=== PATIENT | female | born 1955 | race Caucasian/White ===

== ENCOUNTER 2023-04-14 09:22 | Emergency (ER) | payer MEDICARE, OTHER, SELFPAY ==
--- NOTE | 2023-04-14 09:31 | ED.GENMED ---
Addendum entered and electronically signed by Kamaljit Lowe PA-C 04/16/23 14:56:
Urine culture with greater than 100,000 colony-forming units of Enterococcus and gram-negative bacilli. Patient on cefdinir. Sensitivities pending
Original Note:
History of Present Illness
General
Chief Complaint: Change in Mental Status
Time Seen by Provider: 04/14/23 09:26
Travel History
Have you had any contact with someone who has COVID-19?: Unable to Answer
Do you have any symptoms of coronavirus? Fever > 100 degrees, chills, cough, shortness of breath, sore throat, loss of taste or smell, muscle aches, or headache?: Unable to Answer
History of Present Illness
History of Present Illness:
67-year-old female with history of dementia, schizophrenia, paranoia, and expressive aphasia presents to the emergency department from [facility] due to a reported change in mental status. Apparently while attempting to
transition the patient from bed to a chair she screamed, began to shake in pain and became unresponsive. Upon arrival of EMS patient was alert with minimal verbal expression which is apparently her baseline, responds well to painful stimuli. No
new medications reported. No fevers reported at home. No history of seizure disorder
Past History
Past History
ED Past Medical History: Other (Dementia, anxiety, depression, ambulatory dysfunction, edema)
ED Past Surgical History: Other
Social History
Tobacco: Non-smoker
Alcohol: Other
Drug: Other
Personal: Other
Living: [facility]
Employment: Other
Family History
Family History: Other
Review of Systems
Review of Systems
Allergies reviewed?: Yes
All Other Systems: ROS reviewed and negative except as documented in HPI and ROS
Phy Exam
Physical Exam
Physical Exam:
GEN: Chronically ill-appearing, no immediate distress
HEENT: Oral mucosa moist, no scleral icterus
Cardiac: Regular rate and rhythm, no murmurs
Lung: No respiratory distress, no tachypnea, lungs clear to auscultation
MSK: No gross deformity or injuries
Skin: Good color, no pallor or jaundice, no rashes
Neuro: Alert, answers questions with 'yeah', responds to painful stimuli x 4 extremities, does not follow commands
Psych: Calm, cooperative
Course
Orders/Labs/Results
Orders:
Orders
04/14/23 09:30
CT Head W/o Iv Contrast Urgent
Comment:
Reason For Exam: mental status change
Straight cath- Treatment ONCE
04/14/23 09:59
Complete Blood Count/With Diff Urgent
Comprehensive Metabolic Panel Urgent
Urinalysis Reflex To Culture Urgent
Date Specimen was Collected: 04/14/23
Time Specimen was Collected: 09:43
Urine Microscopic Reflex Cult Urgent
Urine Culture Urgent
CLEMENTE Source: U
Specimen Description:
Date Specimen was Collected: 04/14/23
Time Specimen was Collected: 09:43
04/14/23 11:17
CefTRIAXone [Rocephin] 1,000 mg IV NOW STA
04/14/23 11:30
Sterile Water [Sterile Water For Injection] 10 ml .ROUTE .[facility]
Abnormal Lab Results
04/14/23
09:59
RBC 4.08 L 10^6/uL
(4.20-5.40)
MCH 33.8 H pg
(27.0-31.0)
Carbon Dioxide 32 H mmol/L
(22-30)
AST 37 H U/L
(14-36)
ALT 42 H U/L
(0-35)
Ur Occult Blood Reflex 2+ A
(Negative)
Urine Nitrite (Reflex) Positive A
(Negative)
Leukocyte Esterase Rfl 2+ A
(Negative)
Urine RBC 3-6 A /HPF
(0-2)
Urine WBC (Reflex) 50-60 A /HPF
(0-5)
Urine Bacteria (Reflex) Many A
(Negative)
04/14/23 09:59
04/14/23 09:59
Vital Signs
Initial and Last Documented VS:
Initial Vital Signs
Pulse Ox
99
04/14/23 09:41
Last Documented Vital Signs
Temp Pulse Resp BP Pulse Ox
98 F 86 15 96/71 98
04/14/23 09:45 04/14/23 12:15 04/14/23 12:15 04/14/23 12:00 04/14/23 12:15
MDM/Problems Addressed
MDM/Problems Addressed:
Patient's mentation improved the emergency department. Do not feel this represents a seizure given that there was no postictal period. Patient clinically stable, urinalysis suspicious for UTI, will treat with single dose IV antibiotics and
discharged on a oral antibiotic to complete a 7-day course.
*Critical Care Note
Total Time (30-74mins, 75-104mins- exclusive of procedures): Not Applicable
ED Attending Note
-
Portions of this chart may have been created with voice recognition software.� Occasional wrong word or��sound alike� substitutions may have occurred due to the inherent limitations of voice recognition software.
Discharge Plan
Departure
Patient Disposition: Longterm/SNF
Date of Disposition: 04/14/23
Time of Disposition: 11:18
Patient with high blood pressure during this ER visit?: No
Discharge Problem:
Urinary tract infection, Acute metabolic encephalopathy
Instructions: Altered Mental Status (DC)
Prescriptions:
New
cefdinir 300 mg capsule
300 mg PO Q12H 6 Days Qty: 12 0RF
No Action
cyanocobalamin (vitamin B-12) [Vitamin B-12] 500 MCG tablet
500 mcg feeding tube DAILY
melatonin 5 MG tablet
5 mg feeding tube HS
acetaminophen 160 mg/5 mL Liquid
960 mg feeding tube TID
Rx Instructions:
04/14/2023, 30 ml.
thiamine HCl (vitamin B1) 100 mg Tablet
100 mg feeding tube DAILY
magnesium hydroxide [Milk of Magnesia] 400 mg/5 mL Suspension
30 ml feeding tube [id number] PRN (Reason: if no BM in 3 days)
Patient Comments:
04/14/2023, [id number] at bedtime.
bisacodyl [Dulcolax (bisacodyl)] 10 mg Suppository
10 mg MI DAILY PRN (Reason: if no results for MOM)
therapeutic multivitamin Liquid
15 ml feeding tube DAILY
quetiapine [Seroquel] 25 mg Tablet
25 mg feeding tube DAILY
sennosides [senna] 8.6 mg Tablet
8.6 mg feeding tube DAILY
acetaminophen 160 mg/5 mL Liquid
592 mg feeding tube Q6HPRN PRN (Reason: mild pain)
Rx Instructions:
04/14/2023, 18.5 ml.
donepezil [Aricept] 10 mg Tablet
10 mg feeding tube HS
valproic acid (as sodium salt) 250 mg/5 mL Solution
500 mg feeding tube BID
valproic acid (as sodium salt) 250 mg/5 mL Solution
250 mg feeding tube HS
fluoxetine [Prozac] 20 mg Capsule
20 mg feeding tube DAILY
loratadine [Claritin] 10 mg Tablet
10 mg feeding tube DAILY
aripiprazole 5 mg Tablet
5 mg feeding tube DAILY
Referrals:
Huber Hale I., DO [Family Provider] -
Interventions
Interventions:
*Risk Screen - Suicide Last Done: 04/14/23 10:21
*General Assessment Last Done: 04/14/23 10:20
*Neglect/Abuse Screening Last Done: 04/14/23 10:21
ED- Fall Risk Assessment Last Done: 04/14/23 10:21
*ED COVID-19 Vaccine History Last Done: 04/14/23 10:20
*Nursing Disposition Last Done: 04/14/23 12:30
ED- Pulmonary Assessment Last Done: 04/14/23 10:26
ED- Neurological Assessment Last Done: 04/14/23 10:26
ED- Cardiac Assessment Last Done: 04/14/23 10:26
Discharge Date and Time
Discharge Date/Time: 04/14/23 12:30
[2023-04-14 09:42] VITALS: BP 112/63
[2023-04-14 10:00] VITALS: BP 105/72
[2023-04-14 10:08] LABS: % Basophils 0.5 % (0-2); % Eosinophils 0.5 % (0-6); % Immature Granulocytes 0.4 % (0-0.5); % Lymphocytes 31.1 % (20.5-51.1); % Monocytes 5.7 % (1.7-9.3); % Neutrophils 61.8 % (42.2-75.2); Absolute Lymphocytes 2.5 10^3/uL (1.2-3.4); Absolute Monocytes 0.5 10^3/uL (0.1-0.6); Absolute Neutrophils 4.9 10^3/uL (1.4-6.5); Hemoglobin 13.8 g/dL (12.0-16.0); Mean Corp Hgb Conc. 34.5 g/dL (33.0-37.0); Mean Corpuscular Hgb 33.8 pg (27.0-31.0); Mean Platelet Volume 9.5 fL (7.4-10.4); Nucleated Red Blood Cells % 0 %; Platelet Count 281 10^3/uL (130-400); Red Blood Cell Count 4.08 10^6/uL (4.20-5.40); Red Cell Dist. Width 12.7 % (11.5-14.5); White Blood Cell Count 7.9 10^3/uL (4.8-10.8)
[2023-04-14 10:17] LABS: ALT (SGPT) 42 U/L (0-35); AST (SGOT) 37 U/L (14-36); Albumin 3.8 g/dl (3.5-5.0); Alkaline Phosphatase 107 U/L (38-126); Blood Urea Nitrogen 12 mg/dl (7-17); Calcium 9.9 mg/dl (8.4-10.2); Carbon Dioxide 32 mmol/L (22-30); Chloride 99 mmol/L (98-107); Glucose 82 mg/dl (70-99); Potassium 5.1 mmol/L (3.5-5.1); Sodium 138 mmol/L (135-145); Total Bilirubin 0.5 mg/dl (0.2-1.3); Total Protein 6.3 g/dl (6.3-8.2); eGFR > 60.00
[2023-04-14 10:18] LABS: Urine Albumin Trace (Neg - Trace); Urine Bilirubin Negative (Negative); Urine Character Very Cloudy (Clear); Urine Color Yellow; Urine Glucose Negative (Negative); Urine Ketone Negative (Negative); Urine Leukocyte 2+ (Negative); Urine Nitrite Positive (Negative); Urine Occult Blood 2+ (Negative); Urine Urobilinogen Negative (Neg - 1+); Urine pH 6.5 (5.0-9.0)
[2023-04-14 11:08] VITALS: BP 94/65
[2023-04-14 11:11] LABS: Urine Amorphous Seen; Urine Mucus Few; Urine Squamous Cell >30 /LPF (Few)
[2023-04-14 11:13] LABS: Urine Bacteria Many (Negative); Urine White Cell 50-60 /HPF (0-5)
[2023-04-14] MEDS: ROCEPHIN 1000 MG IV (11:34)
[2023-04-14 11:38] VITALS: BP 102/72
[2023-04-14 12:00] VITALS: BP 96/71
== END 2023-04-14 12:30 ==
LOC: EMR 09:22
PROVIDERS: Physician Assistant; EMERGENCY PHYSICIAN Emergency Medicine; FAMILY PHYSICIAN Internal Medicine
DX: R55 Syncope and collapse (principal); N39.0 Urinary tract infection, site not specified; B95.2 Enterococcus as the cause of diseases classified elsewhere; G93.41 Metabolic encephalopathy; F03.92 Unspecified dementia, unspecified severity, with psychotic disturbance; F03.93 Unspecified dementia, unspecified severity, with mood disturbance; F03.94 Unspecified dementia, unspecified severity, with anxiety; F20.9 Schizophrenia, unspecified; F32.A Depression, unspecified; R47.01 Aphasia
CPT/HCPCS: 99285; 96374; 51701; 70450; 80053; 81003; 81015; 85025; 87077; 87086; 87186

== ENCOUNTER 2024-02-06 21:24 | Inpatient (IN) | payer MEDICARE, OTHER, SELFPAY ==
[2024-02-06 16:00] VITALS: BP 108/73
[2024-02-06 16:05] LABS: % Basophils 0.2 % (0-2); % Eosinophils 0.4 % (0-6); % Immature Granulocytes 0.8 % (0-0.5); % Lymphocytes 23.2 % (20.5-51.1); % Monocytes 11.2 % (1.7-9.3); % Neutrophils 64.2 % (42.2-75.2); Absolute Eosinophils 0.1 10^3/uL (0-0.7); Absolute Immature Granulocytes 0.1 10^3/uL (0-0.05); Absolute Lymphocytes 3.2 10^3/uL (1.2-3.4); Absolute Monocytes 1.6 10^3/uL (0.1-0.6); Absolute Neutrophils 8.9 10^3/uL (1.4-6.5); Hematocrit 36.5 % (37.0-47.0); Hemoglobin 12.4 g/dL (12.0-16.0); Mean Corpuscular Hgb 31.9 pg (27.0-31.0); Mean Corpuscular Volume 93.8 fL (81.0-99.0); Mean Platelet Volume 8.6 fL (7.4-10.4); Nucleated Red Blood Cells % 0 %; Platelet Count 340 10^3/uL (130-400); Red Blood Cell Count 3.89 10^6/uL (4.20-5.40); Red Cell Dist. Width 12.1 % (11.5-14.5); White Blood Cell Count 13.9 10^3/uL (4.8-10.8)
[2024-02-06 16:20] LABS: ALT (SGPT) 16 U/L (0-35); AST (SGOT) 24 U/L (14-36); Albumin 3.2 g/dl (3.5-5.0); Alkaline Phosphatase 113 U/L (38-126); Blood Urea Nitrogen 17 mg/dl (7-17); Calcium 8.7 mg/dl (8.4-10.2); Carbon Dioxide 33 mmol/L (22-30); Chloride 89 mmol/L (98-107); Glucose 89 mg/dl (70-99); Potassium 4.7 mmol/L (3.5-5.1); Sodium 131 mmol/L (135-145); Total Bilirubin 0.3 mg/dl (0.2-1.3); Total Protein 5.9 g/dl (6.3-8.2); eGFR > 60.00
[2024-02-06 16:28] LABS: Lactic Acid 2.3 mmol/L (0.7-2.0)
--- NOTE | 2024-02-06 16:29 | ED.GENMED ---
History of Present Illness
General
Chief Complaint: Change in Mental Status
Source: patient
Exam Limitations: none
Time Seen by Provider: 02/06/24 16:20
Nursing documentation reviewed up to this point in time: agreed with
History of Present Illness
History of Present Illness:
Patient is a 5-year-old female from [facility] with past medical history of dementia aphasia, anxiety depression schizophrenia personality disorder insomnia sent for evaluation. Patient started to become confused and not responding at lunchtime
and it was noted that her left knee is swollen and red and patient was grimacing with palpation. No history of fall recently.
I spoke to the long termhome restoration service cleaner who reports patient is normally awake and alert and oriented x 1 or 2 very minimal conversation of flat affect. She does not walk normally she is normally incontinent. Today she was more confused than normal
not responding and they did notice that her left knee was red and swollen and tender palpation. Pt is not on blood thinners.
Past History
Past History
ED Past Medical History: Other (Dementia, anxiety, depression, ambulatory dysfunction, edema)
ED Past Surgical History: Other
Social History
Tobacco: Non-smoker
Alcohol: Other
Drug: Other
Personal: Other
Living: long term
Employment: Other
Family History
Family History: Other
Review of Systems
Review of Systems
Allergies reviewed?: Yes
Unable to obtain full review of systems at this time due to: other (pt w/ history of dementia ; change in MS )
Other source history: long term
All Other Systems: ROS reviewed and negative except as documented in HPI and ROS
Musculoskeletal: Reports other (left knee noted to be red and swollen by AL staff )
Skin: Reports no symptoms
Neurological: Reports other (confusion as per NH staff )
Psychiatric: Reports no symptoms
Phy Exam
General Physical Exam
General Presentation: no apparent distress
General age: appears older than age
General Skin: warm and dry
General Habitus: elderly
General Mental: other (PT sleeping )
General Hydration: dry mucous membranes
Cardiovascular Exam
Cardiovascular Exam: regular rate/rhythm, no murmur and normal peripheral pulses
Pulmonary Exam
Pulmonary Exam: lungs clear and no respiratory distress
Neurological Exam
Neurological Exam: other (sleepy)
Musculoskeletal Exam
Musculoskeletal Exam: other (left knee swollen and red, + grimace upon palpation to left knee )
Course
Orders/Labs/Results
Orders:
Orders
02/06/24 15:51
C-Reactive Protein Urgent
Comment: ADDON
Complete Blood Count/With Diff Urgent
Comprehensive Metabolic Panel Urgent
Erythrocyte Sed Rate Urgent
Comment: ADDON
02/06/24 16:11
Lactic Acid Urgent
02/06/24 16:40
CT Head W/o Iv Contrast Urgent
Comment:
Reason For Exam: change in ms
02/06/24 16:42
Knee, Left 4 or More Views [CR Knee - Left 4 Or More View*] Urgent
Comment:
Reason For Exam: pain/swelling/redness
02/06/24 16:44
Add On- LAB Urgent
Tests Added?: valproic acid level
IV Insert/Care/Rem.- Treatment PRN
02/06/24 16:45
0.9% Sodium Chloride 1000 ml [Nss] 1,700 ml IV NOW STA
02/06/24 16:47
Straight cath- Treatment ONCE
Blood Culture Q30M
CLEMENTE Source: Blood/Venous
Specimen Description:
02/06/24 17:00
Blood Culture Q30M
CLEMENTE Source: Blood/Venous
Specimen Description:
02/06/24 17:01
UA Reflex to Culture [Urinalysis Reflex To Culture] Urgent
Date Specimen was Collected: 02/06/24
Time Specimen was Collected: 17:01
Urine Microscopic Reflex Cult Urgent
Urine Culture Urgent
CLEMENTE Source: U
Specimen Description:
Date Specimen was Collected: 02/06/24
Time Specimen was Collected: 17:01
02/06/24 17:14
Valproic Acid Level [Depakane] Urgent
02/06/24 18:00
Add On- LAB Urgent
Tests Added?: sed rate and crp
02/06/24 19:40
Body Fluid Cell Count Urgent
What is the Body Fluid: joint
Date Specimen was Collected: 02/06/24
Time Specimen was Collected: 19:38
Comment: with DIFF
Crystals, Body Fluid [Body Fluid Crystals] Urgent
What is the Body Fluid: joint
Date Specimen was Collected: 02/06/24
Time Specimen was Collected: 19:38
Fluid Culture with Gram Stain Urgent
CLEMENTE Source: Synovial Fluid
Specimen Description:
Date Specimen was Collected: 02/06/24
Time Specimen was Collected: 19:38
02/06/24 19:44
CefTRIAXone [Rocephin] 1,000 mg IV NOW STA
02/06/24 19:50
EKG- Treatment ONCE
02/06/24 19:51
Electrocardiogram (*1) Stat
Reason for Study: Other
Other Reason for Exam: chest pain
Electrocardiogram (*1) Urgent
Reason for Study: Other
Other Reason for Exam: infection
EKG- Treatment ONCE
02/06/24 20:16
Sterile Water [Sterile Water For Injection] 10 ml .ROUTE .[facility] ONE
02/06/24 20:37
Lactate Level [Lactic Acid] Urgent
02/06/24 21:01
Admit/Transfer Patient As Directed
Co-Sign Provider:
Level of Care: Inpatient admission
Assign to:: Medical/Surgical
Physician / Group: Juan Jose Anthony
Diagnosis: UTI vs. inflammatory arthritis
Reason for Hospitalization: UTI vs. inflammatory arthritis
Expected length of stay greater than two midnights?: Yes
ELOS- Estimated Length of Stay in days: 3
I certify the patient meets the requirements for IP care: Yes
PRN Pain Medication Management As Directed
May give lesser potent ordered pain med per pt: Yes
preference::
Protocol:: Medication orders for pain may be administered in a
manner that supports deferring to patient preference
when the pt is:
- Requesting an ordered lesser potent pain medication.
Least to most potent pain medications are defined
as: acetaminophen < NSAID < tramadol < opioids
(morphine, oxycodone, hydromorphone).
- Requesting a lesser dose of the same medication IF
ORDERED.
- Requesting a less intrusive route of administration
if both routes are prescribed by the provider (PO <
IV).
02/06/24 21:04
Code Status As Directed
Resuscitation Status: Full Code
02/06/24 21:10
ORTHOPEDIC CONSULT Routine
Consulting Provider: Curt Smith
Was physician already notified: Yes
Abnormal Lab Results
02/06/24 02/06/24 02/06/24
15:51 16:11 17:01
WBC 13.9 H 10^3/uL
(4.8-10.8)
RBC 3.89 L 10^6/uL
(4.20-5.40)
Hct 36.5 L %
(37.0-47.0)
MCH 31.9 H pg
(27.0-31.0)
Abs Immat Gran (auto) 0.1 H 10^3/uL
(0-0.05)
Absolute Neuts (auto) 8.9 H 10^3/uL
(1.4-6.5)
Absolute Monos (auto) 1.6 H 10^3/uL
(0.1-0.6)
Immature Gran % 0.8 H %
(0-0.5)
Monocytes % 11.2 H %
(1.7-9.3)
Sodium 131 L mmol/L
(135-145)
Chloride 89 L mmol/L
(98-107)
Carbon Dioxide 33 H mmol/L
(22-30)
Lactic Acid 2.3 H mmol/L
(0.7-2.0)
C-Reactive Protein 75.60 H mg/L
(0.0-10.00)
Total Protein 5.9 L g/dl
(6.3-8.2)
Albumin 3.2 L g/dl
(3.5-5.0)
Ur Occult Blood Reflex 3+ A
(Negative)
Leukocyte Esterase Rfl 2+ A
(Negative)
Urine WBC (Reflex) 11-15 A /HPF
(0-5)
Urine Bacteria (Reflex) Many A
(Negative)
Urine Albumin (Reflex) 2+ A
(Neg - Trace)
02/06/24 15:51
02/06/24 15:51
Vital Signs
Initial and Last Documented VS:
Initial Vital Signs
Temp Pulse Resp Pulse Ox
97.7 F 95 20 98
02/06/24 15:41 02/06/24 15:41 02/06/24 15:41 02/06/24 15:41
Last Documented Vital Signs
Temp Pulse Resp BP Pulse Ox
97.7 F 88 16 119/73 100
02/06/24 15:41 02/06/24 18:04 02/06/24 18:04 02/06/24 18:00 02/06/24 18:02
Clinical Trials Systems Administrator consulted with Physician
Clinical Trials Systems Administrator consulted with physician?: Yes
Name of Physician Consulted: Tong
Procedures
Incision/Drainage/Joint Aspiration
Left Knee:
Anethesia: 1% Lidocaine
Preparation: cleaned with Betadine
Type of procedure: aspiration
Nature of site: other (swelling to left knee )
Additional information:
approx 20 ml of serosanguineous synovial fluid every third
MDM/Problems Addressed
Differential Diagnosis Includes:
not limited to: septic knee, gout prepatellar cellulitis
MDM/Problems Addressed:
Patient is a 5-year-old female with schizophrenia from long term sent for change in mental status and swollen left knee. Patient is normally only awake and alert x 1 or 2 minimally verbal mostly bedbound no injury. Patient presents she moans
and does respond to pain but does not answer questions. She does mumble. She is afebrile here with elevated white count of 13.9 lactic 2.3. Left knee is swollen and tender and red .
Case reviewed with orthopedics who does recommend to tap left knee .was aspirated(on the medial medial aspect of the left knee proximal to the area of erythema but not over the site of erythema) with 20 cc of serosanguineous fluid. Case reviewed
with orthopedics , Dr Smith, fluid sent for Gram stain cell count and crystals.
CAT scan head negative. Patient does appear to have a UTI with foul-smelling or 11�50 white blood cell CRP is elevated at 75 lactic acid is elevated 2.3 patient's blood pressures in low 100s pulse is in the 80s. This blood pressure appears at
baseline. Patient was given septic fluids she is on Depakote and her level is normal at 81.1; her ESR is normal.
Will require mission for change in mental status will treat for UTI with joint fluid pending.
Patient admitted to the hospital service
Chronic conditions affecting care:
Schizophrenia normally minimally verbal
*Radiology
Radiology exam reviewed: radiology read reviewed
*Pulse Oximetry
Patient hypoxic: no
*Critical Care Note
Total Time (30-74mins, 75-104mins- exclusive of procedures): Not Applicable
Patient Management
Discussion with other providers: Language Pathologist (ortho DRGallant )
ED Attending Note
-
Portions of this chart may have been created with voice recognition software.� Occasional wrong word or��sound alike� substitutions may have occurred due to the inherent limitations of voice recognition software.
Discharge Plan
Departure
Patient Disposition: Admit
Date of Disposition: 02/06/24
Time of Disposition: 19:51
Admit to: Med/Surg
Admit to doctor: hospitalist
Presentation/result/management discussed w/ accepting MD/DO: Hospitalist
Patient with high blood pressure during this ER visit?: No
Condition: Fair
Covid-19: Not Applicable
Discharge Problem:
Altered mental status, Cellulitis of left knee
Interventions
Interventions:
*Risk Screen - Suicide Last Done: 02/06/24 15:41
*General Assessment Last Done: 02/06/24 15:41
*Neglect/Abuse Screening Last Done: 02/06/24 15:41
*ED COVID-19 Vaccine History Last Done: 02/06/24 15:56
ED- Neurological Assessment Last Done: 02/06/24 15:56
ED Swallowing Screen Last Done: 02/06/24 15:56
[2024-02-06] MEDS: NSS 1700 ML IV (16:52)
[2024-02-06 17:00] VITALS: BP 104/89
[2024-02-06 17:12] LABS: Urine Albumin 2+ (Neg - Trace); Urine Bilirubin Negative (Negative); Urine Character Very Cloudy (Clear); Urine Color Yellow; Urine Glucose Negative (Negative); Urine Ketone Negative (Negative); Urine Leukocyte 2+ (Negative); Urine Nitrite Negative (Negative); Urine Occult Blood 3+ (Negative); Urine Urobilinogen Negative (Neg - 1+)
[2024-02-06 17:20] LABS: Urine Squamous Cell 0-2 /LPF (Few)
[2024-02-06 17:22] LABS: Urine Bacteria Many (Negative); Urine Red Blood Cell 0-2 /HPF (0-2)
[2024-02-06 17:37] LABS: Depakane 81.1 ug/ml (50.0-120.0)
[2024-02-06 18:00] VITALS: BP 119/73
[2024-02-06 18:21] LABS: Erythrocyte Sed Rate 15 mm/hour (0-20)
--- NOTE | 2024-02-06 19:26 | EDRN ---
Report received, helping PASTE PLANT SUPERVISOR drain knee
[2024-02-06 19:52] LABS: Body Fluid Mononuclear 19.6 %; Body Fluid Polymorphonuclear 80.4 %; Body Fluid WBC 1878 /CUMM
[2024-02-06 20:07] LABS: Body Fluid Second Tech 501491
--- NOTE | 2024-02-06 20:13 | HPS.HSE ---
Addendum entered and electronically signed by Juan Jose Anthony DO 02/06/24 21:44:
Patient seen and examined independently. Agree with findings and plan as set forth by PROSPER Isaac.
Patient is a 68y F with PMH significant for schizophrenia, seizure disorder and bedbound status chronically who presents to ED from local [place] for evaluation of L knee pain, swelling and redness. This was initially noted this afternoon. Patient
was also noted to become more 'withdrawn' and less interactive this afternoon. No injury or trauma reported.
In the ED, patient is contracted and poorly responsive. She does have pain with attempted ROM of the L knee.
Ass:
Left Knee Inflammatory Arthritis
UTI
Sepsis secondary to the above
Schizophrenia
Dementia
Seizure Disorder
G-Tube Dependent
Plan:
Admit for further evaluation and treatment.
Patient presents with leukocytosis, tachycardia and elevated lactic acid level.
Possible sources of infection include orthopedic and urinary.
L knee aspirated in the ED and showed WBC with no organisms and no noted crystals.
There is significant pain with attempted ROM.
UA suggestive of UTI.
Continue IV abx for now and follow up all culture data.
Orthopedic evaluation for additional recommendations.
IVF support.
Follow for clinical improvement.
Continue usual psychotropic meds, AEDs, etc.
Patient on modified diet and G-tube utilized for medications.
Original Note:
Family Physician
-
Family Physician: Huber Hale
Chief Complaint
-
change in mental status
History of Present Illness
Patient is [id number] female with past medical history significant for dementia, anxiety, paranoid schizophrenia and seizure disorder who presented to [facility] ED from [facility] where she resides for evaluation of change in
mental status. It is reported that the patient became withdrawn and not responding around lunch today, staff noted that left knee was red and edematous. Facility staff noted that on knee assessment it was tender to palpation. They report patient
baseline is AAOx1-2, minimal conversation, flat affect and is incontinent. Patient non-responsive and does not follow commands for this provider.
Medical History
Past Medical History
Past Medical History: Reports Other
Additional Past Medical History:
dementia
anxiety
paranoid schizophrenia
seizure disorder
Past Surgical History: Reports Other
Additional Past Surgical History:
PEG tube placement
Social History
Unable to obtain full social history at this time due to: Dementia
Family History
Family History: Unable to Obtain (patient non-responsive, no family, listed guardian )
Allergies / Home Medications
Allergies reflects when Allergies were last updated in [facility].
Home Medications with original date entered in [facility]
Allergy/Medication List:
Allergies
Allergy/AdvReac Type Severity Reaction Status Date / Time
No Known Allergies Allergy Unverified 04/14/23 10:14
Home Medications
melatonin 5 mg tablet 5 mg feeding tube HS Sleep 07/14/21
bisacodyl 10 mg rectal suppository (Dulcolax (bisacodyl)) 10 mg AL DAILY PRN if no results for MOM 09/04/22
magnesium hydroxide 400 mg/5 mL oral suspension (Milk of Magnesia) 30 ml feeding tube HSPRN PRN if no BM in 3 days 09/04/22
therapeutic multivitamin 15 ml feeding tube DAILY Supplement 09/04/22
acetaminophen 160 mg/5 mL oral liquid 592 mg feeding tube Q6HPRN PRN mild pain 04/14/23
aripiprazole 5 mg tablet 5 mg feeding tube DAILY 04/14/23
donepezil 10 mg tablet (Aricept) 10 mg feeding tube HS 04/14/23
fluoxetine 20 mg capsule (Prozac) 20 mg feeding tube DAILY 04/14/23
loratadine 10 mg tablet (Claritin) 10 mg feeding tube DAILY 04/14/23
sennosides 8.6 mg tablet (senna) 8.6 mg feeding tube DAILY 04/14/23
valproic acid (as sodium salt) 250 mg/5 mL oral solution 250 mg feeding tube HS 04/14/23
valproic acid (as sodium salt) 250 mg/5 mL oral solution 500 mg feeding tube BID 04/14/23
Review of Systems
-
Unable to obtain full review of systems at this time due to: Patient Non-verbal
Physical Exam
Vital Signs
Vital Signs
Temp Pulse Resp BP Pulse Ox
97.7 F 88 16 119/73 100
02/06/24 15:41 02/06/24 18:04 02/06/24 18:04 02/06/24 18:00 02/06/24 18:02
Physical Exam
General: Well Developed, Well Nourished, No Apparent Distress, Comfortable and Other (opens eyes to name, does not follow commands)
HEENT: NormoCephalic, Moist mucous membranes, Atraumatic, PERRLA, [place] Conjunctivae, Nose Appears Normal and Ears Appear Normal
Respiratory: Clear and Non Labored Respirations
Cardiac: S1/S2 and Regular Rhythm; No Murmur, Rub or Gallop
GI: Soft, Non Tender, Non Distended and Normal Bowel Sounds; No Organomegaly
Rectal: Deferred by Provider
Genito-urinary: Deferred by me
Musculoskeletal: No Clubbing, No Cyanosis, No Edema and Other (contractures to bilateral upper and lower extremities )
Skin: Warm, IV/Catheter Site and Other (left knee, red, warm to touch); No Rash
Neuro: Awake and Other (opens eyes to name, does not follow commands)
Laboratory Results
-
02/06/24 15:51
02/06/24 15:51
Laboratory Results
Lactic Acid 2.3 mmol/L (0.7-2.0) H 02/06/24 16:11
Total Bilirubin 0.3 mg/dl (0.2-1.3) 02/06/24 15:51
AST 24 U/L (14-36) 02/06/24 15:51
ALT 16 U/L (0-35) 02/06/24 15:51
Alkaline Phosphatase 113 U/L (38-126) 02/06/24 15:51
Data Reviewed
-
Diagnostic Radiology: Report Reviewed by me (Knee X-ray: Moderate tricompartmental osteoarthritis. Bony demineralization.)
CT Scan: Report Reviewed by me (Head: No acute intracranial abnormality noted. Severe atrophy. Stable Moderate periventricular small vessel ischemic disease. Severe mucosal thickening in the right sphenoid sinus. Progressed Severe nonacute
sphenoid sinusitis. Improved)
Medical Tests (Nuc Med, Echo, EKG etc): Report Reviewed by me (EKG: NORMAL SINUS RHYTHM LOW VOLTAGE QRS BORDERLINE ECG)
Lab Data: Labs Reviewed by me (WBC 13.9, Lactic 2.3, GRINDER SET UP OPERATOR THREAD TOOL 75.60) and Other (Fluid Cult/not urine: Pending ; Gram Stain Preliminary: 02/06/24-2019, Moderate WBC, No Organisms Seen)
Impression/Plan
-
IMPRESSION/PLAN:
#sepsis
UA: indicative of possible UTI
Left knee aspirated with 20 cc of serosanguineous fluid (Preliminary): No crystals, moderate WBC, no organisms seen
WBC 13.9
Lactic 2.3
- Admit to med/surg
- blood cx pending
- ibuprofen 600mg q8
- Consult ortho
- Prilosec
- continue Rocephin
#dementia
patient non-responsive and does not follow commands
- continue aripiprazole, donepezil
#anxiety
- continue fluoxetine
#seizure disorder
- continue valproic acid
#paranoid schizophrenia
Code Status: Full Code
DVT Prophylaxis: Lovenox sq
--- NOTE | 2024-02-06 20:15 | EDRN ---
Rolled patient and took extra sheets from under her and pulled up in bed, purwick is still in place and working
[2024-02-06] MEDS: ROCEPHIN 1000 MG IV (20:18)
[2024-02-06 20:59] LABS: Lactic Acid 1.3 mmol/L (0.7-2.0)
[2024-02-06 22:23] VITALS: BP 100/69; BMI 20.3
[2024-02-06] MEDS: NSS 1000 IV (22:35)
[2024-02-06] MEDS: MELATONIN 5 MG TUBE (22:58)
[2024-02-06] MEDS: MOTRIN 600 MG TUBE (22:59)
[2024-02-06] MEDS: ARICEPT 10 MG TUBE (22:59)
[2024-02-06] MEDS: DEPAKENE 250 MG TUBE (23:00)
[2024-02-07] MEDS: NSS 1000 IV ×3 (06:29→21:54)
[2024-02-07 07:49] VITALS: BP 112/70
[2024-02-07 08:48] LABS: Hematocrit 32.8 % (37.0-47.0); Mean Corp Hgb Conc. 33.5 g/dL (33.0-37.0); Mean Corpuscular Volume 95.3 fL (81.0-99.0); Mean Platelet Volume 8.8 fL (7.4-10.4); Platelet Count 291 10^3/uL (130-400); Red Blood Cell Count 3.44 10^6/uL (4.20-5.40); Red Cell Dist. Width 12.3 % (11.5-14.5); White Blood Cell Count 8.4 10^3/uL (4.8-10.8)
[2024-02-07] MEDS: DEPAKENE 500 MG TUBE ×2 (09:06→20:33)
[2024-02-07] MEDS: MOTRIN 600 MG TUBE ×3 (09:06→21:37)
[2024-02-07] MEDS: CLARITIN 10 MG TUBE (09:07)
[2024-02-07] MEDS: PROZAC 20 MG TUBE (09:07)
[2024-02-07] MEDS: SENNA SYRUP 8.8 MG TUBE (09:07)
[2024-02-07] MEDS: PREVACID 30 MG TUBE (09:07)
[2024-02-07] MEDS: ABILIFY 5 MG TUBE (09:07)
[2024-02-07] MEDS: DAILY VITAMIN/CENTRUM 15 ML TUBE (09:08)
[2024-02-07 09:38] LABS: Blood Urea Nitrogen 11 mg/dl (7-17); Calcium 8.2 mg/dl (8.4-10.2); Carbon Dioxide 30 mmol/L (22-30); Chloride 99 mmol/L (98-107); Estimated Creatinine Clearance 58 ml/min; Glucose 80 mg/dl (70-99); Potassium 4.3 mmol/L (3.5-5.1); Sodium 136 mmol/L (135-145); eGFR > 60.00
[2024-02-07 11:32] VITALS: BP 131/74
--- NOTE | 2024-02-07 13:21 | W.PN.UPDATE ---
Update Note
Progress Note Update
Pt seen and chart reviewed
Aspirate essentially neg and xrays neg for fracture
Suspect bruising anterior knee rather than cellulitis
Doubt acute severe problem of L knee at the present time
Will see again prn
contact me if any problems
thanks
GGMD
--- NOTE | 2024-02-07 14:36 | W.PN.HOSP.TC ---
Today's Communication/Plan
-
monitor fever curve, cultures
cont empiric abx for today
GOC convo - this most likely is related to worsening dementia
Assessment / Plan
Assessment / Plan
Physical Exam
General: Well Developed, Well Nourished, No Apparent Distress, Comfortable and Other (opens eyes to name, does not follow commands)
HEENT: NormoCephalic, Moist mucous membranes, Atraumatic, PERRLA, [place] Conjunctivae, Nose Appears Normal and Ears Appear Normal
Respiratory: Clear and Non Labored Respirations
Cardiac: S1/S2 and Regular Rhythm; No Murmur, Rub or Gallop
GI: Soft, Non Tender, Non Distended and Normal Bowel Sounds; No Organomegaly
Rectal: Deferred by Provider
Genito-urinary: Deferred by me
Musculoskeletal: No Clubbing, No Cyanosis, No Edema and Other (contractures to bilateral upper and lower extremities )
Skin: Warm, IV/Catheter Site and Other (left knee, red, warm to touch); No Rash
Neuro: Awake and Other (opens eyes to name, does not follow commands)
#Leukocytosis
-most likely reactive
-no evidence of infection
-f/u cultures
-Ucx neg
-Left knee aspirated with 20 cc of serosanguineous fluid (Preliminary): No crystals, moderate WBC, no organisms seen - most likely brusing after fall
-can cont empiric abx for now
#Elevated Lactic
-possibly 2/2 to fall
-resolved
-hemodynamically stable
#Acute on chronic encephalopathy
# Multiple secondary to worsening dementia versus less likely infection
patient does not follow commands
- continue aripiprazole, donepezil
� If no improvement, can consider psychiatric consult
#anxiety
- continue fluoxetine
#seizure disorder
- continue valproic acid
#paranoid schizophrenia
Code Status: Full Code
DVT Prophylaxis: Lovenox sq
Anticipated Discharge: 24 - 48 hours
Subjective/Interval History
-
Date of Service: February 07, 2024
No acute events
Objective Data
-
Labs:
Laboratory Results
02/07/24
08:14
WBC 8.4
Hgb 11.0 L
Hct 32.8 L
Plt Count 291
Sodium 136
Potassium 4.3
Chloride 99
Carbon Dioxide 30
BUN 11
Creatinine 0.7
Glucose 80
Calcium 8.2 L
Vital Signs:
Vital Signs
Temp Pulse Resp BP Pulse Ox
97.7 F 70 16 131/74 94
02/07/24 11:32 02/07/24 11:32 02/07/24 11:32 02/07/24 11:32 02/07/24 11:32
Review of Systems
-
History Source: Patient
All other systems: Not reviewed unless documented
Data Reviewed
-
Diagnostic Radiology: Report Reviewed by me
CT Scan: Report Reviewed by me
Labs: Labs Reviewed by me
[2024-02-07 15:33] LABS: COVID-19 Antigen Negative (Negative)
[2024-02-07 16:10] VITALS: BP 123/77
--- NOTE | 2024-02-07 16:55 | PTCARENOTE ---
Pt positive for Flu. Report given to 4 mervin RN. Pt transferred to room 431 for private room.
--- NOTE | 2024-02-07 17:15 | PTCARENOTE ---
1700 Pt transferred from [facility] via bed. When verbalize to pt, noted pt awake, smiling and did speak one word. IV fluids infusing to left forearm IV site intact. Place on droplet precautions, continue to monitor pt closely.
[2024-02-07] MEDS: LOVENOX 40 MG SC (19:36)
[2024-02-07] MEDS: STERILE WATER FOR INJECTION 10 ML IV (20:33)
[2024-02-07] MEDS: ROCEPHIN 1000 MG IV (20:34)
[2024-02-07] MEDS: ARICEPT 10 MG TUBE (21:36)
[2024-02-07] MEDS: MELATONIN 5 MG TUBE (21:36)
[2024-02-07] MEDS: DEPAKENE 250 MG TUBE (21:37)
[2024-02-07 23:35] VITALS: BP 111/74
[2024-02-08] MEDS: NSS 1000 IV (05:26)
[2024-02-08] MEDS: DEPAKENE 500 MG TUBE (08:37)
[2024-02-08] MEDS: PROZAC 20 MG TUBE (08:38)
[2024-02-08] MEDS: MOTRIN 600 MG TUBE ×2 (08:38→16:03)
[2024-02-08] MEDS: ABILIFY 5 MG TUBE (08:38)
[2024-02-08] MEDS: PREVACID 30 MG TUBE (08:38)
[2024-02-08] MEDS: CLARITIN 10 MG TUBE (08:38)
[2024-02-08] MEDS: SENNA SYRUP 8.8 MG TUBE (08:38)
[2024-02-08 09:16] VITALS: BP 115/72
[2024-02-08 09:24] LABS: Hematocrit 34.1 % (37.0-47.0); Hemoglobin 11.1 g/dL (12.0-16.0); Mean Corp Hgb Conc. 32.6 g/dL (33.0-37.0); Mean Corpuscular Hgb 32.1 pg (27.0-31.0); Mean Corpuscular Volume 98.6 fL (81.0-99.0); Mean Platelet Volume 8.7 fL (7.4-10.4); Platelet Count 301 10^3/uL (130-400); Red Blood Cell Count 3.46 10^6/uL (4.20-5.40); Red Cell Dist. Width 12.5 % (11.5-14.5); White Blood Cell Count 9.7 10^3/uL (4.8-10.8)
[2024-02-08] MEDS: DAILY VITAMIN/CENTRUM 15 ML TUBE (09:31)
[2024-02-08 09:53] LABS: Blood Urea Nitrogen 7 mg/dl (7-17); Calcium 8.1 mg/dl (8.4-10.2); Carbon Dioxide 27 mmol/L (22-30); Chloride 103 mmol/L (98-107); Estimated Creatinine Clearance 58 ml/min; Glucose 82 mg/dl (70-99); Potassium 3.7 mmol/L (3.5-5.1); Sodium 140 mmol/L (135-145); eGFR > 60.00
--- NOTE | 2024-02-08 13:11 | CM ---
Addendum entered by Nya Delgado 02/08/24 14:36:
Discharge summary and copy of IMM provided to guardian Estephania, fax [phone].
Original Note:
flight reservations manager reviewed patient's chart and patient resides at [facility]. Patient has a court appointed guardian Estephania Metzger/[place] and onsite case manager reached out to guardian to make her aware that patient was admitted to
[facility] and also cleared for discharge today, per nursing, Jessika patient is bedbound at snf.
PCP: Dr. Hale
Pharmacy: [facility]
Plan; Patient to return to [facility] today, by ambulation, message left for guardian.
[facility]
Report [phone]
--- NOTE | 2024-02-08 13:42 | W.PN.HOSP.TC ---
Addendum entered and electronically signed by Kaz Adam MD 02/08/24 16:29:
[id number]
Original Note:
Today's Communication/Plan
-
complete abx covg
supportive care for flu
dc today
Assessment / Plan
Assessment / Plan
Physical Exam
General: Well Developed, Well Nourished, No Apparent Distress, Comfortable and Other (opens eyes to name, does not follow commands)
HEENT: NormoCephalic, Moist mucous membranes, Atraumatic, PERRLA, [place] Conjunctivae, Nose Appears Normal and Ears Appear Normal
Respiratory: Clear and Non Labored Respirations
Cardiac: S1/S2 and Regular Rhythm; No Murmur, Rub or Gallop
GI: Soft, Non Tender, Non Distended and Normal Bowel Sounds; No Organomegaly
Rectal: Deferred by Provider
Genito-urinary: Deferred by me
Musculoskeletal: No Clubbing, No Cyanosis, No Edema and Other (contractures to bilateral upper and lower extremities )
Skin: Warm, IV/Catheter Site and Other (left knee, red, warm to touch); No Rash
Neuro: Awake and Other (opens eyes to name, does not follow commands)
#Leukocytosis, resolved
-most likely reactive
-no evidence of infection
-f/u cultures
-Ucx neg
-Left knee aspirated with 20 cc of serosanguineous fluid (Preliminary): No crystals, moderate WBC, no organisms seen - most likely brusing after fall
-Can complete 5 day abx course with flu positive
#Elevated Lactic
-possibly 2/2 to fall
-resolved
-hemodynamically stable
#Acute on chronic encephalopathy
# Multiple secondary to worsening dementia + Flu
patient does not follow commands
- continue aripiprazole, donepezil
#Influenza
-supportive care
#anxiety
- continue fluoxetine
#seizure disorder
- continue valproic acid
#paranoid schizophrenia
Code Status: Full Code
DVT Prophylaxis: Lovenox sq
More than 30 minutes spent in discharge including
Final examination of the patient
Summarizing hospital stay
Instructions for continuing care to all relevant caregivers
Preparation of discharge records, prescriptions, and referral forms
Total time spent (35 in minutes):
Anticipated Discharge: Today
Subjective/Interval History
-
Date of Service: February 08, 2024
No acute events, flu positive yesterday
Objective Data
-
Labs:
Laboratory Results
02/08/24
08:55
WBC 9.7
Hgb 11.1 L
Hct 34.1 L
Plt Count 301
Sodium 140
Potassium 3.7
Chloride 103
Carbon Dioxide 27
BUN 7
Creatinine 0.7
Glucose 82
Calcium 8.1 L
Vital Signs:
Vital Signs
Temp Pulse Resp BP Pulse Ox
98.1 F 82 16 115/72 97
02/08/24 09:16 02/08/24 09:16 02/08/24 09:16 02/08/24 09:16 02/08/24 09:16
I&O
02/07/24 02/08/24 02/09/24
06:59 06:59 06:59
Intake Total 1040 / 1040
Balance 1040 / 1040
Review of Systems
-
History Source: Patient
All other systems: Not reviewed unless documented
Data Reviewed
-
Diagnostic Radiology: Report Reviewed by me
CT Scan: Report Reviewed by me
Labs: Labs Reviewed by me
--- NOTE | 2024-02-08 13:56 | W.DS.TRANS ---
DC Summary - Insurance Agency Manager
-
Discharge Instructions:
Discharge Diagnosis/Procedures #Acute on chronic encephalopathy
# Multiple secondary to worsening dementia +
viral infection
#Influenza
Diet As tolerated
Activity As tolerated
Instructions:
Stand-Alone Forms:
Changes to Home Medications: Yes
Discharge Medications:
DC Medications w/original date entered in [employer]
melatonin 5 mg tablet 5 mg feeding tube HS Sleep 07/14/21
bisacodyl 10 mg rectal suppository (Dulcolax (bisacodyl)) 10 mg LA DAILY PRN if no results for MOM 09/04/22
magnesium hydroxide 400 mg/5 mL oral suspension (Milk of Magnesia) 30 ml feeding tube HSPRN PRN if no BM in 3 days 09/04/22
therapeutic multivitamin 15 ml feeding tube DAILY Supplement 09/04/22
acetaminophen 160 mg/5 mL oral liquid 592 mg feeding tube Q6HPRN PRN mild pain 04/14/23
aripiprazole 5 mg tablet 5 mg feeding tube DAILY Mental Health/Anxiety 04/14/23
donepezil 10 mg tablet (Aricept) 10 mg feeding tube HS Mental Health/Anxiety 04/14/23
fluoxetine 20 mg capsule (Prozac) 20 mg feeding tube DAILY Mental Health/Anxiety 04/14/23
loratadine 10 mg tablet (Claritin) 10 mg feeding tube DAILY Allergies 04/14/23
sennosides 8.6 mg tablet (senna) 8.6 mg feeding tube DAILY Constipation 04/14/23
valproic acid (as sodium salt) 250 mg/5 mL oral solution 250 mg feeding tube HS 04/14/23
valproic acid (as sodium salt) 250 mg/5 mL oral solution 500 mg feeding tube BID Neurological Condition 04/14/23
cefdinir 300 mg capsule 300 mg PO BID 4 days #8 caps 02/08/24
Home Medication Changes
cefdinir 300 mg capsule 300 mg PO BID 4 days #8 caps 02/08/24
Pending Results: No
[2024-02-08 15:33] VITALS: BP 116/69
--- NOTE | 2024-02-08 16:17 | PTCARENOTE ---
attempt to call report, spoke to Girish who states patient is going to station [facility] and they are not picking up. message left to call for report. Estimated brain picker time [id number]
--- NOTE | 2024-02-08 17:30 | PTCARENOTE ---
report given to nurse Alfredo at [facility], preparing for d/c
== END 2024-02-08 18:09 | DRG 884 ==
LOC: 4 WEST ACU 21:24
PROVIDERS: Nurse Practitioner; Nurse Practitioner Family; ADMITTING PHYSICIAN Hospitalist; ATTENDING PHYSICIAN Internal Medicine; CONSULT PHYSICIAN Orthopaedic Surgery Hand Surgery; EMERGENCY PHYSICIAN Emergency Medicine; FAMILY PHYSICIAN Internal Medicine
PROC: 0S9D3ZZ Drainage of Left Knee Joint, Percutaneous Approach (ICD-10-PCS; 2024-02-06)
DX: F03.93 Unspecified dementia, unspecified severity, with mood disturbance (principal); G93.49 Other encephalopathy; F20.0 Paranoid schizophrenia; L03.116 Cellulitis of left lower limb; E87.20 Acidosis, unspecified; Z51.5 Encounter for palliative care; J10.81 Influenza due to other identified influenza virus with encephalopathy; G40.909 Epilepsy, unspecified, not intractable, without status epilepticus; F32.A Depression, unspecified; M17.12 Unilateral primary osteoarthritis, left knee; Z93.1 Gastrostomy status; Z11.52 Encounter for screening for COVID-19
CPT/HCPCS: 20610; 70450; 73564; 80048; 80053; 80164; 81003; 81015; 83605; 85025; 85027; 85652; 86140; 87015; 87040; 87070; 87086; 87205; 87502; 87811; 89051; 89060; 93005; 96361; 96374; 99285

== ENCOUNTER 2024-06-07 16:11 | Inpatient (IN) | payer MEDICARE, OTHER, SELFPAY ==
[2024-06-07] VITALS (13 sets, daily range): BP systolic 102–144; BP diastolic 64–93; BMI 23.1
--- NOTE | 2024-06-07 11:21 | ED.GENMED ---
History of Present Illness
General
Chief Complaint: Change in Mental Status
Source: ambulance crew
Exam Limitations: clinical condition
Time Seen by Provider: 06/07/24 10:30
History of Present Illness
History of Present Illness:
69-year-old female sent in for blood around her mouth and a change in mental status. Noted this morning around 930. Patient unable to add history. Apparently is normally fairly nonverbal although per the daughter, she normally attempts some
interaction
Past History
Past History
ED Past Medical History: Other (Dementia, anxiety, depression, ambulatory dysfunction, edema)
ED Past Surgical History: Other
Social History
Tobacco: Non-smoker
Alcohol: Other
Drug: Other
Personal: Other
Living: long-term
Employment: Other
Family History
Family History: Other
Review of Systems
Review of Systems
Unable to obtain full review of systems at this time due to: dementia
All Other Systems: Not applicable
Phy Exam
Physical Exam
Physical Exam:
GENERAL: Alert. Nonverbal. Does not follow commands. Chronically ill-appearing. Elderly and frail s
EYE: Orbits normal.
NECK: Supple, no significant adenopathy.
ENT: Small amount of dried blood around the mouth. No drooling or stridor. Not cooperative to opening her mouth
CARDIAC: Tachycardic and regular no murmur
LUNGS: Occasional coarse rhonchi
ABDOMEN: Soft, without focal tenderness or distention. G-tube in place
NEUROLOGICAL: Alert and oriented , grossly non-focal
SKIN: Warm and dry
MUSCULOSKELETAL: Contractures diffusely
PSYCH: Normal and appropriate interaction.
Course
Orders/Labs/Results
Orders:
Orders
06/07/24 Breakfast
NPO
Allow oral meds: No
Allow clear liquids: No
Tube Feeding
At Your Request: Non-Participating
Tube Feeding Product: Jevity 1.5
Initial continuous pump rate (mL/hr): 100 ml/hr
Nocturnal tube feed start time: 20:00
Nocturnal tube feed stop time: 08:00
Flush Continuous pump feedings with water (mL/hr): 25
06/07/24 10:55
CT Head W/o Iv Contrast Urgent
Comment:
Reason For Exam: Change in mental status
Cardiac Monitoring- Treatment ONCE
IV Insert/Care/Rem.- Treatment PRN
Straight cath- Treatment ONCE
Pulse Ox/cont/shift [RESP] Urgent
Quantity: 1
06/07/24 10:56
Electrocardiogram (*1) Urgent
Reason for Study: Other
Other Reason for Exam: sepsis
EKG- Treatment ONCE
CR Chest Portable - 1 View Urgent
Comment:
Reason For Exam: hypoxia
Reason Study Needs to be Portable: Unable to Transport
06/07/24 11:21
Complete Blood Count/With Diff Urgent
Comprehensive Metabolic Panel Urgent
Creatine Phosphokinase Urgent
Comment: ADD ON
Free T4 Urgent
Comment: ADD ON
TSH Urgent
Comment: ADD ON
Urinalysis Reflex To Culture Urgent
Date Specimen was Collected: 06/07/24
Time Specimen was Collected: 11:09
Urine Microscopic Reflex Cult Urgent
Valproic Acid Level [Depakane] Urgent
Urine Culture Urgent
CLEMENTE Source: U
Specimen Description:
Date Specimen was Collected: 06/07/24
Time Specimen was Collected: 11:09
06/07/24 15:44
Admit/Transfer Patient As Directed
Co-Sign Provider:
Level of Care: Inpatient admission
Assign to:: Medical/Surgical
Physician / Group: benji
Diagnosis: metabolic encephalopathy
Reason for Hospitalization: metabolic encephalopathy
Expected length of stay greater than two midnights?: Yes
ELOS- Estimated Length of Stay in days: 3
I certify the patient meets the requirements for IP care: Yes
Code Status As Directed
Resuscitation Status: Full Code
PRN Pain Medication Management As Directed
May give lesser potent ordered pain med per pt: Yes
preference::
Protocol:: Medication orders for pain may be administered in a
manner that supports deferring to patient preference
when the pt is:
- Requesting an ordered lesser potent pain medication.
Least to most potent pain medications are defined
as: acetaminophen < NSAID < tramadol < opioids
(morphine, oxycodone, hydromorphone).
- Requesting a lesser dose of the same medication IF
ORDERED.
- Requesting a less intrusive route of administration
if both routes are prescribed by the provider (PO <
IV).
06/07/24 20:08
Bisacodyl [Dulcolax] 10 mg RECTAL [id number] PRN
Docusate W/Senna [Senokot-S] 1 tablet PO BIDPRN PRN
Enoxaparin Sodium [Lovenox] 40 mg SC QPM
Polyethylene Glycol Powder [Miralax] 17 grams PO DAILYPRN PRN
06/07/24 20:08
[facility] Manager Consult Routine
Activity As Directed
Activity Level: As Tolerated
Vital Signs As Directed
Frequency: Per unit guidelines
DX Deep Vein Thrombosis Video Routine
06/07/24 20:15
Valproic Acid Syrup [Depakene] 500 mg TUBE BID AT 0800,1700
06/07/24 20:19
Acetaminophen [Tylenol Suspension] 592 mg TUBE Q6HPRN PRN
06/07/24 22:00
Donepezil HCl [Aricept] 10 mg TUBE HS
Melatonin 5 mg TUBE HS
Valproic Acid Syrup [Depakene] 250 mg TUBE HS
06/08/24 08:00
Fluoxetine HCl [Prozac] 20 mg TUBE DAILY
Loratadine [Claritin] 10 mg TUBE DAILY
Multiple Vitamins [Daily Vitamin/Centrum] 15 ml TUBE DAILY
Sennosides [Senokot] 8.6 mg TUBE DAILY
Abnormal Lab Results
06/07/24
11:21
MCH 31.6 H pg
(27.0-31.0)
Abs Immat Gran (auto) 0.1 H 10^3/uL
(0-0.05)
Absolute Neuts (auto) 7.5 H 10^3/uL
(1.4-6.5)
Immature Gran % 0.9 H %
(0-0.5)
Lymphocytes % 19.3 L %
(20.5-51.1)
Carbon Dioxide 34 H mmol/L
(22-30)
BUN 21 H mg/dl
(7-17)
Glucose 101 H mg/dl
(70-99)
Total Protein 6.2 L g/dl
(6.3-8.2)
Ur Occult Blood Reflex 2+ A
(Negative)
Leukocyte Esterase Rfl 3+ A
(Negative)
Urine RBC 3-6 A /HPF
(0-2)
Urine WBC (Reflex) 11-15 A /HPF
(0-5)
Urine Bacteria (Reflex) Few A
(Negative)
Urine Albumin (Reflex) 1+ A
(Neg - Trace)
Valproic Acid 47.5 L ug/ml
(50.0-120.0)
06/07/24 11:21
06/07/24 11:21
Vital Signs
Initial and Last Documented VS:
Initial Vital Signs
Temp Pulse Resp BP Pulse Ox
98.4 F 112 18 126/88 93
06/07/24 10:31 06/07/24 10:31 06/07/24 10:31 06/07/24 10:31 06/07/24 10:31
Last Documented Vital Signs
Temp Pulse Resp BP Pulse Ox
98.9 F 113 15 145/92 87
06/08/24 15:05 06/08/24 15:05 06/08/24 15:05 06/08/24 15:05 06/08/24 15:05
MDM/Problems Addressed
Differential Diagnosis Includes:
This is an apparent mental status change for the patient. Possible postictal seizure. Possible infection electrolyte issue. Primary neurologic issue. Grossly nonfocal however. Workup in progress. Daughter and guardian updated
*Pulse Oximetry
Patient hypoxic: no
*Critical Care Note
Total Time (30-74mins, 75-104mins- exclusive of procedures): Not Applicable
Data Reviewed
Review of Other/Old Records Reveals: Labs, Records, Testing and Discharge Summary
ED Attending Note
-
Portions of this chart may have been created with voice recognition software.� Occasional wrong word or��sound alike� substitutions may have occurred due to the inherent limitations of voice recognition software.
Discharge Plan
Departure
Patient Disposition: Admit
Date of Disposition: 06/07/24
Time of Disposition: 15:32
Presentation/result/management discussed w/ accepting MD/DO: Hospitalist
Discharge Problem:
Altered mental status, Possible postictal issue, Dementia
Interventions
Interventions:
*Risk Screen - Suicide Last Done: 06/07/24 10:34
*General Assessment Last Done: 06/07/24 10:31
*Neglect/Abuse Screening Last Done: 06/07/24 10:34
*ED- Fall Risk Assessment Last Done: 06/07/24 10:31
*ED COVID-19 Vaccine History Last Done: 06/07/24 10:31
*Nursing Disposition Last Done: 06/07/24 20:03
ED- Neurological Assessment Last Done: 06/07/24 10:37
ED- Cardiac Assessment Last Done: 06/07/24 13:00
ED Swallowing Screen Last Done: 06/07/24 10:37
Discharge Date and Time
Discharge Date/Time: 06/07/24 20:07
[2024-06-07 11:39] LABS: % Basophils 0.4 % (0-2); % Eosinophils 1.3 % (0-6); % Immature Granulocytes 0.9 % (0-0.5); % Lymphocytes 19.3 % (20.5-51.1); % Monocytes 5.5 % (1.7-9.3); % Neutrophils 72.6 % (42.2-75.2); Absolute Eosinophils 0.1 10^3/uL (0-0.7); Absolute Immature Granulocytes 0.1 10^3/uL (0-0.05); Absolute Monocytes 0.6 10^3/uL (0.1-0.6); Absolute Neutrophils 7.5 10^3/uL (1.4-6.5); Hematocrit 41.8 % (37.0-47.0); Hemoglobin 14.1 g/dL (12.0-16.0); Mean Corp Hgb Conc. 33.7 g/dL (33.0-37.0); Mean Corpuscular Hgb 31.6 pg (27.0-31.0); Mean Corpuscular Volume 93.7 fL (81.0-99.0); Mean Platelet Volume 9.7 fL (7.4-10.4); Nucleated Red Blood Cells % 0 %; Platelet Count 255 10^3/uL (130-400); Red Blood Cell Count 4.46 10^6/uL (4.20-5.40); Red Cell Dist. Width 13.1 % (11.5-14.5); White Blood Cell Count 10.3 10^3/uL (4.8-10.8)
[2024-06-07 11:43] LABS: Urine Albumin 1+ (Neg - Trace); Urine Bilirubin Negative (Negative); Urine Character Cloudy (Clear); Urine Color Yellow; Urine Glucose Negative (Negative); Urine Ketone Negative (Negative); Urine Leukocyte 3+ (Negative); Urine Nitrite Negative (Negative); Urine Occult Blood 2+ (Negative); Urine Specific Gravity 1.015 (<1.030); Urine Urobilinogen Negative (Neg - 1+)
[2024-06-07 11:53] LABS: ALT (SGPT) 20 U/L (0-35); AST (SGOT) 27 U/L (14-36); Albumin 3.6 g/dl (3.5-5.0); Alkaline Phosphatase 97 U/L (38-126); Blood Urea Nitrogen 21 mg/dl (7-17); Calcium 9.7 mg/dl (8.4-10.2); Carbon Dioxide 34 mmol/L (22-30); Chloride 101 mmol/L (98-107); Glucose 101 mg/dl (70-99); Potassium 4.6 mmol/L (3.5-5.1); Sodium 138 mmol/L (135-145); Total Bilirubin 0.4 mg/dl (0.2-1.3); Total Protein 6.2 g/dl (6.3-8.2); eGFR > 60.00
[2024-06-07 11:57] LABS: Depakane 47.5 ug/ml (50.0-120.0)
[2024-06-07 12:47] LABS: Urine Squamous Cell >30 /LPF (Few)
[2024-06-07 12:49] LABS: Urine Amorphous Seen
[2024-06-07 12:51] LABS: Urine Bacteria Few (Negative)
--- NOTE | 2024-06-07 15:14 | HPS.HSE ---
Addendum entered and electronically signed by Yumiko Pascal DO 06/07/24 17:52:
I have seen and examined the patient. I reviewed the patient with Nia and agree with her history and physical and assessment and plan of care as per below.
The patient is a 69-year-old woman with past medical history significant for dementia, schizophrenia, seizure disorder, B12 deficiency, insomnia, anxiety who presented to the emergency department from her nursing facility secondary to suspected
seizure activity. She was found with blood around her mouth with worsening altered mental status.
Pulse is 113
Physical exam remarkable for patient is altered, confused, she responds to verbal stimuli and during physical exam, no focal deficits noted
EKG shows sinus tachycardia
CT head without evidence for intracranial abnormality
Assessment and plan of care
# Altered mental status likely secondary to seizure activity and postictal state, metabolic encephalopathy
- Neurology consultation is appreciated
- Valproic acid level is slightly low at 47.5, discussed EEG and adjusting dosing with neurology
# Sinus tachycardia, azotemia, likley volume depletion
- Start IV fluids 125 mL per hour for 2 bags and monitor, repeat labs in the morning
# Dysphagia, chronic
- The patient is on Jevity at night and we have consulted nutrition
- Keep n.p.o.
Original Note:
Family Physician
-
Family Physician: Huber Hale
Chief Complaint
-
confusion
History of Present Illness
69-year-old female with past medical history for anxiety, paranoid cytopenia, seizure, B12 deficiency, insomnia sent in for blood around her mouth and a change in mental status. Noted this morning around 930. Patient basically nonverbal. Not able
to provide much of history. As per guardian, she was not at her baseline as per the nurses from [facility].
Admitting for further management
Medical History
Past Medical History
Past Medical History: Reports Other
Additional Past Medical History:
Anxiety, paranoid schizophrenia
Seizure disorder
B12 deficiency
Insomnia
Past Surgical History: Reports Other
Additional Past Surgical History:
peg tube placement
Social History
Unable to obtain full social history at this time due to: Dementia
Family History
Family History: Not pertinent
Allergies / Home Medications
Allergies reflects when Allergies were last updated in [employer].
Home Medications with original date entered in [employer]
Allergy/Medication List:
Allergies
Allergy/AdvReac Type Severity Reaction Status Date / Time
No Known Allergies Allergy Verified 06/07/24 11:23
Home Medications
melatonin 5 mg tablet 5 mg feeding tube HS Sleep 07/14/21
bisacodyl 10 mg rectal suppository (Dulcolax (bisacodyl)) 10 mg SC DAILY PRN if no results for MOM 09/04/22
magnesium hydroxide 400 mg/5 mL oral suspension (Milk of Magnesia) 30 ml feeding tube HSPRN PRN if no BM in 3 days 09/04/22
therapeutic multivitamin 15 ml feeding tube DAILY Supplement 09/04/22
acetaminophen 160 mg/5 mL oral liquid 592 mg feeding tube Q6HPRN PRN mild pain 04/14/23
aripiprazole 5 mg tablet 5 mg feeding tube DAILY Mental Health/Anxiety 04/14/23
donepezil 10 mg tablet (Aricept) 10 mg feeding tube HS Mental Health/Anxiety 04/14/23
fluoxetine 20 mg capsule (Prozac) 20 mg feeding tube DAILY Mental Health/Anxiety 04/14/23
loratadine 10 mg tablet (Claritin) 10 mg feeding tube DAILY Allergies 04/14/23
sennosides 8.6 mg tablet (senna) 8.6 mg feeding tube DAILY Constipation 04/14/23
valproic acid (as sodium salt) 250 mg/5 mL oral solution 250 mg feeding tube HS 04/14/23
valproic acid (as sodium salt) 250 mg/5 mL oral solution 500 mg feeding tube BID Neurological Condition 04/14/23
cefdinir 300 mg capsule 300 mg PO BID 4 days #8 caps 02/08/24
Review of Systems
-
Unable to obtain full review of systems at this time due to: Dementia
Physical Exam
Vital Signs
Vital Signs
Temp Pulse Resp BP Pulse Ox
98.9 F 121 24 138/82 98
06/07/24 10:37 06/07/24 13:30 06/07/24 14:00 06/07/24 14:00 06/07/24 14:00
Physical Exam
General: Well Developed, Well Nourished and No Apparent Distress
HEENT: NormoCephalic, Moist mucous membranes and Atraumatic
Respiratory: Clear
Cardiac: S1/S2 and Regular Rhythm; No Murmur or Rub
GI: Soft, Non Tender, Non Distended and Normal Bowel Sounds; No Organomegaly
Rectal: Deferred by Provider
Musculoskeletal: No Clubbing, No Cyanosis and No Edema
Skin: No Rash
Neuro: Nonfocal/grossly intact
Psych: Confused
Laboratory Results
-
06/07/24 11:21
06/07/24 11:21
Laboratory Results
Total Bilirubin 0.4 mg/dl (0.2-1.3) 06/07/24 11:21
AST 27 U/L (14-36) 06/07/24 11:21
ALT 20 U/L (0-35) 06/07/24 11:21
Alkaline Phosphatase 97 U/L (38-126) 06/07/24 11:21
Data Reviewed
-
Diagnostic Radiology: Report Reviewed by me
CT Scan: Report Reviewed by me
Lab Data: Labs Reviewed by me
Impression/Plan
-
#metabolic encephalopathy likely postictal
#questionable seizure/hxt of seizure
- UA negative
- Chest x-ray with impression of Parenchymal opacity within the medial aspect of the left lower lung, which appears unchanged on direct comparison to previous 2 radiographs, likely representing scarring.No evidence for new lung parenchymal opacity.
- Head CT no evidence of acute intracranial abnormality. Stable CT appearance. Ventricular dilation appears slightly greater than the degree of atrophy, and please correlate with any clinical signs or symptoms that would suggest normal pressure
hydrocephalus.Findings of chronic right sphenoid sinus disease, with slight increase in opacification compared to most recent CT of February 06, 2024. There is also slight interval increase in opacification of the left sphenoid sinus.
- continue valproic acid
-neuro consulted
#anxiety
- continue fluoxetine
#paranoid schizophrenia
#Dementia
#dysphagia
-keep patient NPO
-Jevity 100c/hr at night time
-nutrition consulted
Full Code
DVT Prophylaxis: Lovenox sq
d/w Guardian and Nurse for [facility].
--- NOTE | 2024-06-07 15:43 | PHANOTE ---
06/07/24: Could not find paperwork in the department after checking with the nurse and doctor. Called [facility] to get faxed paperwork but no nurses were willing to pickup due to shift change. Will call back in 15 minutes.
--- NOTE | 2024-06-07 17:09 | CON.NEURO ---
Consultation
Order
Date of Consultation: 06/07/24
Requesting Provider: Zulma Haro CRNP
Reason for Consult: Seizure
Neurology Consultation Note.
HPI: This is a 69-year-old woman who presented to [facility] on 06/07/2024 with encephalopathy. According to EMS report [facility] staff found the patient to be lethargic in the morning with dried blood around her mouth.
ER VS: 126/88, 112, 37.2
EKG: QTc Int : sinus tachycardia, 458 ms
Labs:gluc 101, normal Ca, Cr, VPA
CT head -severe atrophy
Routine EEG(09/09/2022) bihemispheric slowing.
PMH: dementia, schizophrenia, ROSA, vit B12 deficiency, insomnia
PSH:PEG
SH:resident at [facility]
FH: Unknown
All:NKDA
ROS: Positive for perioral dry blood
General: Chronically ill looking
Cardio: Tachycardic
Neuro:
Mental Status: Lethargic, does not attend or follow requests. No verbal output.
Cranial Nerves: Resists passive eye opening. No facial weakness,
Motor: Increased motor tone with contractures in upper and lower extremities
Reflexes: Admitted exam due to increased motor
Sensory: Moans to tactile stimuli
Coordination: No tremors or myoclonic movement
Gait: deferred
Assessment and Plan:
I. Multifactorial encephalopathy (infectious, postictal, neurodegenerative)
II. Symptomatic seizure
III. UTI
-Seizure precaution
-Avoid medications known to lower seizure threshold
-please check TSH, free T4, CK
-Continue current dose of Depakote
-Will contact [facility] to clarify cognitive baseline.
I personally reviewed all radiology and labs along with past medical records pertinent to current medical problems. Total time spent in patient care is 62 minutes.
Thank you for allowing us to participate in the care of this patient. We will continue to follow. Please do not hesitate to contact us with any questions or concerns.
Subjective/Objective
Subjective Data
Date of Service: June 07, 2024
Objective Data
Vital Signs
Temp Pulse Resp BP Pulse Ox
37.2 C 121 24 138/82 98
06/07/24 10:37 06/07/24 13:30 06/07/24 14:00 06/07/24 14:00 06/07/24 14:00
Lab Results
06/07/24 11:21
06/07/24 11:21
Sodium 138 mmol/L (135-145) 06/07/24 11:21
Potassium 4.6 mmol/L (3.5-5.1) 06/07/24 11:21
BUN 21 mg/dl (7-17) H 06/07/24 11:21
Glucose 101 mg/dl (70-99) H 06/07/24 11:21
Calcium 9.7 mg/dl (8.4-10.2) 06/07/24 11:21
Patient Allergies
No Known Allergies Allergy (Verified 06/07/24 11:23)
Medications
-
Home Medications
�Medication �Instructions �Recorded
melatonin 5 mg tablet 5 mg feeding tube HS Sleep 07/14/21
bisacodyl 10 mg rectal suppository 10 mg [place] DAILY PRN if no results 09/04/22
(Dulcolax (bisacodyl)) for MOM
therapeutic multivitamin 15 ml feeding tube DAILY Supplement 09/04/22
acetaminophen 160 mg/5 mL oral 592 mg feeding tube Q6HPRN PRN 04/14/23
liquid mild pain
fluoxetine 20 mg capsule (Prozac) 20 mg feeding tube DAILY Mental 04/14/23
Health/Anxiety
loratadine 10 mg tablet (Claritin) 10 mg feeding tube DAILY Allergies 04/14/23
sennosides 8.6 mg tablet (senna) 8.6 mg feeding tube DAILY 04/14/23
Constipation
valproic acid (as sodium salt) 250 250 mg feeding tube HS 04/14/23
mg/5 mL oral solution
valproic acid (as sodium salt) 250 500 mg feeding tube BID 04/14/23
mg/5 mL oral solution Neurological Condition
aripiprazole 2 mg tablet 1 mg feeding tube DAILY 06/07/24
magnesium hydroxide 400 mg/5 mL 30 ml feeding tube [id number] PRN no 06/07/24
oral suspension (Milk of Magnesia) bm x3 days
Vital Signs and Labs
-
Vital Signs and Labs:
Vital Signs
Temp Pulse Resp BP Pulse Ox
37.2 C 121 24 138/82 98
06/07/24 10:37 06/07/24 13:30 06/07/24 14:00 06/07/24 14:00 06/07/24 14:00
Lab Results
06/07/24 11:21
06/07/24 11:21
Sodium 138 mmol/L (135-145) 06/07/24 11:21
Potassium 4.6 mmol/L (3.5-5.1) 06/07/24 11:21
BUN 21 mg/dl (7-17) H 06/07/24 11:21
Glucose 101 mg/dl (70-99) H 06/07/24 11:21
Calcium 9.7 mg/dl (8.4-10.2) 06/07/24 11:21
Home Medications
-
Home Medications
melatonin 5 mg tablet 5 mg feeding tube HS Sleep 07/14/21
bisacodyl 10 mg rectal suppository (Dulcolax (bisacodyl)) 10 mg [place] DAILY PRN if no results for MOM 09/04/22
therapeutic multivitamin 15 ml feeding tube DAILY Supplement 09/04/22
acetaminophen 160 mg/5 mL oral liquid 592 mg feeding tube Q6HPRN PRN mild pain 04/14/23
fluoxetine 20 mg capsule (Prozac) 20 mg feeding tube DAILY Mental Health/Anxiety 04/14/23
loratadine 10 mg tablet (Claritin) 10 mg feeding tube DAILY Allergies 04/14/23
sennosides 8.6 mg tablet (senna) 8.6 mg feeding tube DAILY Constipation 04/14/23
valproic acid (as sodium salt) 250 mg/5 mL oral solution 250 mg feeding tube HS 04/14/23
valproic acid (as sodium salt) 250 mg/5 mL oral solution 500 mg feeding tube BID Neurological Condition 04/14/23
aripiprazole 2 mg tablet 1 mg feeding tube DAILY 06/07/24
magnesium hydroxide 400 mg/5 mL oral suspension (Milk of Magnesia) 30 ml feeding tube [id number] PRN no bm x3 days 06/07/24
[2024-06-07 17:49] LABS: Creatine Phosphokinase 125 U/L (30-135)
[2024-06-07 18:29] LABS: TSH 2.47 uIU/ml (0.47-4.68)
[2024-06-07] MEDS: LOVENOX 40 MG SC (21:21)
[2024-06-07] MEDS: ARICEPT 10 MG TUBE (21:21)
[2024-06-07] MEDS: MELATONIN 5 MG TUBE (21:21)
[2024-06-07] MEDS: NSS 500 IV (21:22)
[2024-06-07] MEDS: DEPAKENE 500 MG TUBE (23:34)
[2024-06-08] MEDS: DEPAKENE 250 MG TUBE ×2 (00:01→21:19)
[2024-06-08] MEDS: NSS 500 IV (01:48)
[2024-06-08 07:55] VITALS: BP 126/87
[2024-06-08] MEDS: ABILIFY 1 MG TUBE (08:08)
[2024-06-08] MEDS: DEPAKENE 500 MG TUBE ×2 (08:08→17:11)
[2024-06-08] MEDS: DAILY VITAMIN/CENTRUM 15 ML TUBE (08:08)
[2024-06-08] MEDS: ROCEPHIN 1000 MG IV (08:09)
[2024-06-08] MEDS: STERILE WATER FOR INJECTION 10 ML IV (08:09)
[2024-06-08] MEDS: CLARITIN 10 MG TUBE (08:09)
[2024-06-08] MEDS: PROZAC 20 MG TUBE (08:09)
[2024-06-08] MEDS: SENOKOT TUBE (08:10)
--- NOTE | 2024-06-08 09:09 | W.PN.HOSP.TC ---
Today's Communication/Plan
-
see PN
Assessment / Plan
Assessment / Plan
69yo F with PMHx of seizure d/o, schyzophrenia, anxiety, advanced dementia, on PEG was sent from [facility] with main concern for the change in metntal status and possibly some blood afound her mouth. Her mentation though seens to be at baseline
- as per conversation with guardian: patient is minimally verbal, however smiles back and reacts to simple questions, unable to convey conversation. She is bedbound and staff is using wheelchair to move her around. COncern that the RN who was seeing
her that day in SNF was not familiar with patient baseline. Concern for possible breakthrough seizures and UTI
A/P:
#Breakthrough seizures
#Acute delirium on dementia, unspecified
TSH, CPK WNL
neuro consult
cont AED
CT head without acute findings, possible NPH, possible sinusitis
Seizure precautions
depakote level not elevated
#Sinusitis
Doxy
#Lung scarring on XR
no signs of pneumonia
#UTI
minor pyuria with bacterial in UA
possible simple cystitis
pending Ucx start Rocephin
#Schyzophrenia, paranoid
#Anxiety d/o
#Dysphagia on PEG
cont home meds
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
DVT ppx lovenox
Full code - confirmed with guardian
I have spent at least 58min reviwing chart, test results, communication with consultants and providing direct patient care
Anticipated Discharge: 24 - 48 hours
Subjective/Interval History
-
Date of Service: June 08, 2024
Objective Data
-
Vital Signs:
Vital Signs
Temp Pulse Resp BP Pulse Ox
99.8 F 109 15 126/87 98
06/08/24 07:55 06/08/24 07:55 06/08/24 07:55 06/08/24 07:55 06/08/24 07:55
Review of Systems
-
Unable to obtain full review of systems at this time due to: Dementia
Physical Exam
-
General: No Apparent Distress
HEENT: Normocephalic
Respiratory: Clear to Auscultation
Cardiac: Regular Rhythm
GI: Soft, Nontender, Nondistended and Peg Tube
Musculoskeletal: No Clubbing, No Cyanosis and No Edema
Skin: Warm
Neuro: Awake and Alert
Psych: Calm and Apparent Dementia
--- NOTE | 2024-06-08 09:39 | W.PN.NEURO.1 ---
Today's Communication / Plan
-
.
Subjective/Objective
Subjective Data
Date of Service: June 08, 2024
Neurology follow-up note
24-hour events: Continues to be tachycardic, afebrile.
Labs: Normal TFTs, CK.
CT head -severe atrophy
Routine EEG(09/09/2022) bihemispheric slowing.
PMH: dementia, schizophrenia, ROSA, vit B12 deficiency, insomnia
PSH:PEG
SH:resident at [facility], baseline -nonambulatory and minimally verbal
FH: Unknown
All:NKDA
ROS: Positive for perioral dry blood
General: Chronically ill looking
Cardio: Tachycardic
Neuro:
Mental Status: Awake, does not attend or follow requests. No verbal output. Pseudobulbar affect
Cranial Nerves: Resists passive eye opening. No facial weakness,
Motor: Increased motor tone with contractures in upper and lower extremities
Reflexes: Admitted exam due to increased motor
Sensory: Moans to tactile stimuli
Coordination: No tremors or myoclonic movements
Gait: Nonambulatory at baseline
Assessment and Plan:
I. Multifactorial encephalopathy (infectious, postictal, neurodegenerative)
II. Symptomatic seizure
III. UTI
-Seizure precaution
-Avoid medications known to lower seizure threshold
-Continue current dose of Depakote
-Will consider EEG if no clinical improvement
I personally reviewed all radiology and labs along with past medical records pertinent to current medical problems. Total time spent in patient care is 35 minutes.
Thank you for allowing us to participate in the care of this patient. Please do not hesitate to contact us with any questions or concerns.
Objective Data
Vital Signs
Temp Pulse Resp BP Pulse Ox
37.7 C 109 15 126/87 98
06/08/24 07:55 06/08/24 07:55 06/08/24 07:55 06/08/24 07:55 06/08/24 07:55
Lab Results
06/07/24 11:21
06/07/24 11:21
Sodium 138 mmol/L (135-145) 06/07/24 11:21
Potassium 4.6 mmol/L (3.5-5.1) 06/07/24 11:21
BUN 21 mg/dl (7-17) H 06/07/24 11:21
Glucose 101 mg/dl (70-99) H 06/07/24 11:21
Calcium 9.7 mg/dl (8.4-10.2) 06/07/24 11:21
Patient Allergies
No Known Allergies Allergy (Verified 06/07/24 11:23)
Vital Signs and Labs
-
Vital Signs and Labs:
Vital Signs
Temp Pulse Resp BP Pulse Ox
37.7 C 109 15 126/87 98
06/08/24 07:55 06/08/24 07:55 06/08/24 07:55 06/08/24 07:55 06/08/24 07:55
Lab Results
06/07/24 11:21
06/07/24 11:21
Sodium 138 mmol/L (135-145) 06/07/24 11:21
Potassium 4.6 mmol/L (3.5-5.1) 06/07/24 11:21
BUN 21 mg/dl (7-17) H 06/07/24 11:21
Glucose 101 mg/dl (70-99) H 06/07/24 11:21
Calcium 9.7 mg/dl (8.4-10.2) 06/07/24 11:21
Medications
-
Medications:
Generic Name Dose Route Start Last Admin
Trade Name Freq PRN Reason Stop Dose Admin
Acetaminophen 592 mg 06/07/24 20:19
Acetaminophen Suspension 160 Mg/5 Ml Cup TUBE 07/05/24 20:18
Q6HPRN PRN
mild pain
Aripiprazole 1 mg 06/08/24 08:00 06/08/24 08:08
Aripiprazole 2 Mg Tablet TUBE 07/06/24 07:59 1 mg
DAILY ZULEIKA Administration
Bisacodyl 10 mg 06/07/24 20:08
Bisacodyl 10 Mg Rectal Suppository RECTAL 07/05/24 20:07
[id number] PRN
constipation
Ceftriaxone Sodium 1,000 mg 06/08/24 08:00 06/08/24 08:09
Ceftriaxone 1000 Mg / 10 Ml Vial IV 1,000 mg
Q24H ZULEIKA Administration
Donepezil HCl 10 mg 06/07/24 22:00 06/07/24 21:21
Donepezil Hcl 10 Mg Tablet TUBE 07/05/24 21:59 10 mg
HS ZULEIKA Administration
Enoxaparin Sodium 40 mg 06/07/24 20:08 06/07/24 21:21
Enoxaparin Sodium 40 Mg/0.4 Ml Syringe SC 07/05/24 20:07 40 mg
QPM ZULEIKA Administration
Fluoxetine HCl 20 mg 06/08/24 08:00 06/08/24 08:09
Fluoxetine 20 Mg Capsule TUBE 07/06/24 07:59 20 mg
DAILY ZULEIKA Administration
Doxycycline Hyclate 100 mg/ 260 mls @ 260 mls/hr 06/08/24 10:00
Sodium Chloride IV
Q12H ZULEIKA
Loratadine 10 mg 06/08/24 08:00 06/08/24 08:09
Loratadine 10 Mg Tablet TUBE 07/06/24 07:59 10 mg
DAILY ZULEIKA Administration
Melatonin 5 mg 06/07/24 22:00 06/07/24 21:21
Melatonin 5 Mg Tablet TUBE 07/05/24 21:59 5 mg
HS ZULEIKA Administration
Multivitamins 15 ml 06/08/24 08:00 06/08/24 08:08
Multiple Vitamin Oral Liquid 15 Ml Cup TUBE 07/06/24 07:59 15 ml
DAILY ZULEIKA Administration
Polyethylene Glycol 17 grams 06/07/24 20:08
Polyethylene Glycol Powder 17 Grams Packet PO 07/05/24 20:07
DAILYPRN PRN
constipation
Senna/Docusate Sodium 1 tablet 06/07/24 20:08
Docusate W/Senna (Ana Laura-Colace) Tablet PO 07/05/24 20:07
BIDPRN PRN
constipation
Sennosides 8.6 mg 06/08/24 08:00 06/08/24 08:10
Sennosides (Senokot) 8.6 Mg Tablet TUBE 07/06/24 07:59 Not Given
DAILY ZULEIKA
Sodium Chloride 0 flush 06/07/24 21:00
Sodium Chloride 0.9% (Flush) Syringe IV 07/05/24 20:59
PER PROTOCOL ZULEIKA
Sterile Water 10 ml 06/08/24 08:00 06/08/24 08:09
Sterile Water For Injection 10 Ml Vial IV 07/06/24 07:59 10 ml
Q24H ZULEIKA Administration
Valproate Sodium 500 mg 06/07/24 20:15 06/08/24 08:08
Valproic Acid Syrup (250 Mg/5 Ml) Cup TUBE 07/05/24 20:14 500 mg
BID AT 0800,1700 ZULEIKA Administration
Valproate Sodium 250 mg 06/07/24 22:00 06/08/24 00:01
Valproic Acid Syrup (250 Mg/5 Ml) Cup TUBE 07/05/24 21:59 250 mg
HS ZULEIKA Administration
Home Medications
-
Home Medications
melatonin 5 mg tablet 5 mg feeding tube HS Sleep 07/14/21
bisacodyl 10 mg rectal suppository (Dulcolax (bisacodyl)) 10 mg [place] DAILY PRN if no results for MOM 09/04/22
therapeutic multivitamin 15 ml feeding tube DAILY Supplement 09/04/22
acetaminophen 160 mg/5 mL oral liquid 592 mg feeding tube Q6HPRN PRN mild pain 04/14/23
fluoxetine 20 mg capsule (Prozac) 20 mg feeding tube DAILY Mental Health/Anxiety 04/14/23
loratadine 10 mg tablet (Claritin) 10 mg feeding tube DAILY Allergies 04/14/23
sennosides 8.6 mg tablet (senna) 8.6 mg feeding tube DAILY Constipation 04/14/23
valproic acid (as sodium salt) 250 mg/5 mL oral solution 250 mg feeding tube HS Seizures 04/14/23
valproic acid (as sodium salt) 250 mg/5 mL oral solution 500 mg feeding tube BID Seizures 04/14/23
aripiprazole 2 mg tablet 1 mg feeding tube DAILY Mental Health/Anxiety 06/07/24
magnesium hydroxide 400 mg/5 mL oral suspension (Milk of Magnesia) 30 ml feeding tube [id number] PRN no bm x3 days 06/07/24
[2024-06-08] MEDS: VIBRAMYCIN 260 MG IV ×2 (09:53→21:19)
[2024-06-08 15:05] VITALS: BP 145/92
[2024-06-08] MEDS: LOVENOX 40 MG SC (17:14)
[2024-06-08] MEDS: MELATONIN 5 MG TUBE (21:14)
[2024-06-08] MEDS: ARICEPT 10 MG TUBE (21:15)
[2024-06-08] MEDS: TYLENOL SUSPENSION 592 MG TUBE (21:16)
[2024-06-08 23:00] VITALS: BP 141/64
[2024-06-09 07:38] LABS: ALT (SGPT) 21 U/L (0-35); AST (SGOT) 38 U/L (14-36); Albumin 3.2 g/dl (3.5-5.0); Alkaline Phosphatase 101 U/L (38-126); Blood Urea Nitrogen 17 mg/dl (7-17); Calcium 8.9 mg/dl (8.4-10.2); Carbon Dioxide 26 mmol/L (22-30); Chloride 106 mmol/L (98-107); Estimated Creatinine Clearance 62 ml/min; Glucose 151 mg/dl (70-99); Potassium 4.2 mmol/L (3.5-5.1); Sodium 136 mmol/L (135-145); Total Bilirubin 0.6 mg/dl (0.2-1.3); Total Protein 5.7 g/dl (6.3-8.2); eGFR > 60.00
[2024-06-09 07:50] LABS: % Basophils 0.2 % (0-2); % Eosinophils 0.1 % (0-6); % Immature Granulocytes 0.5 % (0-0.5); % Lymphocytes 9.5 % (20.5-51.1); % Monocytes 9.5 % (1.7-9.3); % Neutrophils 80.2 % (42.2-75.2); Absolute Immature Granulocytes 0.1 10^3/uL (0-0.05); Absolute Lymphocytes 1.2 10^3/uL (1.2-3.4); Absolute Monocytes 1.2 10^3/uL (0.1-0.6); Absolute Neutrophils 10.4 10^3/uL (1.4-6.5); Hematocrit 37.3 % (37.0-47.0); Mean Corp Hgb Conc. 34.9 g/dL (33.0-37.0); Mean Corpuscular Hgb 31.6 pg (27.0-31.0); Mean Corpuscular Volume 90.5 fL (81.0-99.0); Mean Platelet Volume 9.9 fL (7.4-10.4); Nucleated Red Blood Cells % 0 %; Platelet Count 203 10^3/uL (130-400); Red Blood Cell Count 4.12 10^6/uL (4.20-5.40); Red Cell Dist. Width 13.2 % (11.5-14.5)
[2024-06-09 07:54] VITALS: BP 151/95
[2024-06-09] MEDS: ABILIFY 1 MG TUBE (07:59)
[2024-06-09] MEDS: DEPAKENE 500 MG TUBE ×2 (07:59→17:10)
[2024-06-09] MEDS: CLARITIN 10 MG TUBE (07:59)
[2024-06-09] MEDS: PROZAC 20 MG TUBE (08:00)
[2024-06-09] MEDS: SENOKOT 8.6 MG TUBE (08:00)
[2024-06-09] MEDS: ROCEPHIN 1000 MG IV (08:00)
[2024-06-09] MEDS: STERILE WATER FOR INJECTION 10 ML IV (08:00)
[2024-06-09] MEDS: DAILY VITAMIN/CENTRUM 15 ML TUBE (08:01)
[2024-06-09] MEDS: VIBRAMYCIN 260 MG IV ×2 (10:12→21:38)
--- NOTE | 2024-06-09 10:51 | PTCARENOTE ---
Patient with x1 episode of unwitnessed emesis and crying out when palpating abdomen. MD aware, CT abd ordered.
[2024-06-09] MEDS: OMNIPAQUE 50 ML PO (11:15)
--- NOTE | 2024-06-09 11:22 | W.PN.HOSP.TC ---
Addendum entered and electronically signed by Jh Ramirez MD 06/09/24 14:50:
#Subcapital left femoral neck fracture appears acute/subacute
suspect osteoporotic
Ortho consult, but patient wheelchair bound with significant dementia
#Constipation
with overflow incontinence
had BM on 06/09/[address]
Laxatives as prior
#compression Fx T11, L1, L5
suspect osteoporotic
indeterminate age
#R pulmonary nodules
subcentimeter
CT repeat in 12mon
Original Note:
Today's Communication/Plan
-
Cont rocephin
CT abd
Assessment / Plan
Assessment / Plan
69yo F with PMHx of seizure d/o, schyzophrenia, anxiety, advanced dementia, on PEG was sent from [facility] with main concern for the change in metntal status and possibly some blood afound her mouth. Her mentation though seens to be at baseline
- as per conversation with guardian: patient is minimally verbal, however smiles back and reacts to simple questions, unable to convey conversation. She is bedbound and staff is using wheelchair to move her around. COncern that the RN who was seeing
her that day in SNF was not familiar with patient baseline. Concern for possible breakthrough seizures and UTI. Also c/o abdominal pain
A/P:
#Breakthrough seizures
#Acute delirium on dementia, unspecified
TSH, CPK WNL
neuro consult
cont AED
CT head without acute findings, possible NPH, possible sinusitis
Seizure precautions
depakote level not elevated
#Sinusitis
Doxy
#Abdominal pain
CT abd/pelvis
#Lung scarring on XR
no signs of pneumonia
#UTI
minor pyuria with bacterial in UA
possible simple cystitis
Rocephin
Ucx - Proteus mirabilis sensitive to cephalosporins
#Schizophrenia, paranoid
#Anxiety d/o
#Dysphagia on PEG
cont home meds
Director Of [employer] for PEG feeding recommendations
DVT ppx lovenox
Full code - confirmed with guardian
I have spent at least 58min reviewing chart, test results, communication with consultants and providing direct patient care
Anticipated Discharge: 24 - 48 hours
Subjective/Interval History
-
Date of Service: June 09, 2024
Objective Data
-
Labs:
Laboratory Results
06/09/24
06:50
WBC 13.0 H
Hgb 13.0
Hct 37.3
Plt Count 203 D
Sodium 136
Potassium 4.2
Chloride 106
Carbon Dioxide 26
BUN 17
Creatinine 0.5 L
Glucose 151 H
Calcium 8.9
Total Bilirubin 0.6
AST 38 H
ALT 21
Alkaline Phosphatase 101
Vital Signs:
Vital Signs
Temp Pulse Resp BP Pulse Ox
99.3 F 110 16 151/95 93
06/09/24 07:54 06/09/24 07:54 06/09/24 07:54 06/09/24 07:54 06/09/24 08:00
I&O
06/08/24 06/09/24 06/10/24
06:59 06:59 06:59
Intake Total 2016
Balance 2016
Review of Systems
-
Unable to obtain full review of systems at this time due to: Dementia
Physical Exam
-
General: Appears in Distress
HEENT: Normocephalic
Respiratory: Clear to Auscultation
Cardiac: Regular Rhythm
GI: Soft and Tender
Musculoskeletal: No Clubbing, No Cyanosis and No Edema
Neuro: Awake and Other (poorly verbal)
Psych: Apparent Dementia
--- NOTE | 2024-06-09 11:59 | W.PN.NEURO.1 ---
Today's Communication / Plan
-
.
Subjective/Objective
Subjective Data
Date of Service: June 09, 2024
Neurology follow-up note
24-hour events: tachycardic, mildly hypertensive. Episodes of emesis in the morning.
Brain MRI is pending
CT head -severe atrophy
Routine EEG(09/09/2022) bihemispheric slowing.
PMH: dementia, schizophrenia, ROSA, vit B12 deficiency, insomnia
PSH:PEG
SH:resident at [facility], baseline -nonambulatory and minimally verbal
All:NKDA
ROS: Positive for perioral dry blood
General: In mild distress
Cardio: Tachycardic
Neuro:
Mental Status: Eyes closed. Does not attend or follow requests. No verbal output. Pseudobulbar affect
Cranial Nerves: Resists passive eye opening. No clear facial weakness.
Motor: Increased motor tone with contractures in upper and lower extremities
Reflexes: Admitted exam due to increased motor
Sensory: Moans to tactile stimuli
Coordination: No tremors or myoclonic movements
Gait: Nonambulatory at baseline
Assessment and Plan:
I. Multifactorial encephalopathy (infectious, postictal, neurodegenerative)
II. Symptomatic seizure
III. UTI
-Seizure precaution
-Avoid medications known to lower seizure threshold
-Continue current dose of Depakote
-Please recall neurology services any questions or concerns
I personally reviewed all radiology and labs along with past medical records pertinent to current medical problems. Total time spent in patient care is 35 minutes.
Thank you for allowing us to participate in the care of this patient. Please do not hesitate to contact us with any questions or concerns.
Objective Data
Vital Signs
Temp Pulse Resp BP Pulse Ox
37.4 C 110 16 151/95 93
06/09/24 07:54 06/09/24 07:54 06/09/24 07:54 06/09/24 07:54 06/09/24 08:00
Lab Results
06/09/24 06:50
06/09/24 06:50
Sodium 136 mmol/L (135-145) 06/09/24 06:50
Potassium 4.2 mmol/L (3.5-5.1) 06/09/24 06:50
BUN 17 mg/dl (7-17) 06/09/24 06:50
Glucose 151 mg/dl (70-99) H 06/09/24 06:50
Calcium 8.9 mg/dl (8.4-10.2) 06/09/24 06:50
Patient Allergies
No Known Allergies Allergy (Verified 06/07/24 11:23)
Vital Signs and Labs
-
Vital Signs and Labs:
Vital Signs
Temp Pulse Resp BP Pulse Ox
37.4 C 110 16 151/95 93
06/09/24 07:54 06/09/24 07:54 06/09/24 07:54 06/09/24 07:54 06/09/24 08:00
Lab Results
06/09/24 06:50
06/09/24 06:50
Sodium 136 mmol/L (135-145) 06/09/24 06:50
Potassium 4.2 mmol/L (3.5-5.1) 06/09/24 06:50
BUN 17 mg/dl (7-17) 06/09/24 06:50
Glucose 151 mg/dl (70-99) H 06/09/24 06:50
Calcium 8.9 mg/dl (8.4-10.2) 06/09/24 06:50
Medications
-
Medications:
Generic Name Dose Route Start Last Admin
Trade Name Freq PRN Reason Stop Dose Admin
Acetaminophen 592 mg 06/07/24 20:19 06/08/24 21:16
Acetaminophen Suspension 160 Mg/5 Ml Cup TUBE 07/05/24 20:18 592 mg
Q6HPRN PRN Administration
mild pain
Aripiprazole 1 mg 06/08/24 08:00 06/09/24 07:59
Aripiprazole 2 Mg Tablet TUBE 07/06/24 07:59 1 mg
DAILY ZULEIKA Administration
Bisacodyl 10 mg 06/07/24 20:08
Bisacodyl 10 Mg Rectal Suppository RECTAL 07/05/24 20:07
[id number] PRN
constipation
Ceftriaxone Sodium 1,000 mg 06/08/24 08:00 06/09/24 08:00
Ceftriaxone 1000 Mg / 10 Ml Vial IV 1,000 mg
Q24H ZULEIKA Administration
Donepezil HCl 10 mg 06/07/24 22:00 06/08/24 21:15
Donepezil Hcl 10 Mg Tablet TUBE 07/05/24 21:59 10 mg
HS ZULEIKA Administration
Enoxaparin Sodium 40 mg 06/07/24 20:08 06/08/24 17:14
Enoxaparin Sodium 40 Mg/0.4 Ml Syringe SC 07/05/24 20:07 40 mg
QPM ZULEIKA Administration
Fluoxetine HCl 20 mg 06/08/24 08:00 06/09/24 08:00
Fluoxetine 20 Mg Capsule TUBE 07/06/24 07:59 20 mg
DAILY ZULEIKA Administration
Doxycycline Hyclate 100 mg/ 260 mls @ 260 mls/hr 06/08/24 10:00 06/09/24 10:12
Sodium Chloride IV 260 mls
Q12H ZULEIKA Administration
Loratadine 10 mg 06/08/24 08:00 06/09/24 07:59
Loratadine 10 Mg Tablet TUBE 07/06/24 07:59 10 mg
DAILY ZULEIKA Administration
Melatonin 5 mg 06/07/24 22:00 06/08/24 21:14
Melatonin 5 Mg Tablet TUBE 07/05/24 21:59 5 mg
HS ZULEIKA Administration
Multivitamins 15 ml 06/08/24 08:00 06/09/24 08:01
Multiple Vitamin Oral Liquid 15 Ml Cup TUBE 07/06/24 07:59 15 ml
DAILY ZULEIKA Administration
Polyethylene Glycol 17 grams 06/07/24 20:08
Polyethylene Glycol Powder 17 Grams Packet PO 07/05/24 20:07
DAILYPRN PRN
constipation
Senna/Docusate Sodium 1 tablet 06/07/24 20:08
Docusate W/Senna (Ana Laura-Colace) Tablet PO 07/05/24 20:07
BIDPRN PRN
constipation
Sennosides 8.6 mg 06/08/24 08:00 06/09/24 08:00
Sennosides (Senokot) 8.6 Mg Tablet TUBE 07/06/24 07:59 8.6 mg
DAILY ZULEIKA Administration
Sodium Chloride 0 flush 06/07/24 21:00
Sodium Chloride 0.9% (Flush) Syringe IV 07/05/24 20:59
PER PROTOCOL ZULEIKA
Sterile Water 10 ml 06/08/24 08:00 06/09/24 08:00
Sterile Water For Injection 10 Ml Vial IV 07/06/24 07:59 10 ml
Q24H ZULEIKA Administration
Valproate Sodium 500 mg 06/07/24 20:15 06/09/24 07:59
Valproic Acid Syrup (250 Mg/5 Ml) Cup TUBE 07/05/24 20:14 500 mg
BID AT 0800,1700 ZULEIKA Administration
Valproate Sodium 250 mg 06/07/24 22:00 06/08/24 21:19
Valproic Acid Syrup (250 Mg/5 Ml) Cup TUBE 07/05/24 21:59 250 mg
HS ZULEIKA Administration
Home Medications
-
Home Medications
melatonin 5 mg tablet 5 mg feeding tube HS Sleep 07/14/21
bisacodyl 10 mg rectal suppository (Dulcolax (bisacodyl)) 10 mg [place] DAILY PRN if no results for MOM 09/04/22
therapeutic multivitamin 15 ml feeding tube DAILY Supplement 09/04/22
acetaminophen 160 mg/5 mL oral liquid 592 mg feeding tube Q6HPRN PRN mild pain 04/14/23
fluoxetine 20 mg capsule (Prozac) 20 mg feeding tube DAILY Mental Health/Anxiety 04/14/23
loratadine 10 mg tablet (Claritin) 10 mg feeding tube DAILY Allergies 04/14/23
sennosides 8.6 mg tablet (senna) 8.6 mg feeding tube DAILY Constipation 04/14/23
valproic acid (as sodium salt) 250 mg/5 mL oral solution 250 mg feeding tube HS Seizures 04/14/23
valproic acid (as sodium salt) 250 mg/5 mL oral solution 500 mg feeding tube BID Seizures 04/14/23
aripiprazole 2 mg tablet 1 mg feeding tube DAILY Mental Health/Anxiety 06/07/24
magnesium hydroxide 400 mg/5 mL oral suspension (Milk of Magnesia) 30 ml feeding tube [id number] PRN no bm x3 days 06/07/24
--- NOTE | 2024-06-09 12:21 | PTCARENOTE ---
Small amount of contrast administered through PEG tube, 30 min later patient found to have vomited again. MD notified that pt is not tolerating contrast through PEG, orders changed to CT with IV contrast only.
Call placed to [facility] to clarify patient's tube feedings and baseline mentation. Nurse says the patient is normally alert but confused and only speaks a few words. Tube feedings are run at 100ml/hr from 0752-0432. updated.
--- NOTE | 2024-06-09 12:53 | CM ---
CM reviewed chart, spoke with admissions at [facility], confirmed patient is LTC resident. Per admissions, patient is AAOx1, bedbound, dependent for care/feeding, PEG tube, Dementia. Patient has a Guardian- Estephania Suggs. Patient PCP [facility], [facility]. Referral placed in [facility]. CM will continue to follow for all discharge planning needs.
Plan; return to [facility] LT when stable
[2024-06-09 14:40] VITALS: BP 138/93
[2024-06-09] MEDS: LOVENOX 40 MG SC (17:10)
--- NOTE | 2024-06-09 17:42 | W.PN.UPDATE ---
Update Note
Progress Note Update
Full orthopedic consult dictated:
Patient was admitted for change in mental status and coincidentally it was noted that she has a left femoral neck fracture. She is a nonambulator and lives in a fci. She does spend part of her time in a wheelchair. Unfortunately it is
unclear how she sustained her hip fracture. Examination noted minimal discomfort about her left hip. She is demented and has multiple medical issues. Presently she has stage III ulcer on her left heel. I spoke to Estephania Gregorio (guardian) and
her sister Sheridan Green. We discussed surgical versus nonsurgical treatment options. We also reviewed the fact that her surgery is high risk. They both opted to treat her with palliative care. Orthopedics to sign off.
[2024-06-09] MEDS: TYLENOL SUSPENSION 592 MG TUBE (21:34)
[2024-06-09] MEDS: DEPAKENE 250 MG TUBE (21:37)
[2024-06-09] MEDS: ARICEPT 10 MG TUBE (21:37)
[2024-06-09] MEDS: MELATONIN 5 MG TUBE (21:37)
[2024-06-10 00:52] VITALS: BP 142/89
[2024-06-10 06:59] LABS: % Basophils 0.3 % (0-2); % Eosinophils 0.1 % (0-6); % Immature Granulocytes 0.5 % (0-0.5); % Lymphocytes 10.2 % (20.5-51.1); % Monocytes 11.4 % (1.7-9.3); % Neutrophils 77.5 % (42.2-75.2); Absolute Immature Granulocytes 0.1 10^3/uL (0-0.05); Absolute Lymphocytes 1.1 10^3/uL (1.2-3.4); Absolute Monocytes 1.3 10^3/uL (0.1-0.6); Absolute Neutrophils 8.6 10^3/uL (1.4-6.5); Hematocrit 37.1 % (37.0-47.0); Hemoglobin 12.8 g/dL (12.0-16.0); Mean Corp Hgb Conc. 34.5 g/dL (33.0-37.0); Mean Corpuscular Hgb 31.7 pg (27.0-31.0); Mean Corpuscular Volume 91.8 fL (81.0-99.0); Mean Platelet Volume 9.8 fL (7.4-10.4); Nucleated Red Blood Cells % 0 %; Platelet Count 187 10^3/uL (130-400); Red Blood Cell Count 4.04 10^6/uL (4.20-5.40); Red Cell Dist. Width 13.3 % (11.5-14.5); White Blood Cell Count 11.1 10^3/uL (4.8-10.8)
[2024-06-10 07:11] LABS: ALT (SGPT) 21 U/L (0-35); AST (SGOT) 31 U/L (14-36); Albumin 3.4 g/dl (3.5-5.0); Alkaline Phosphatase 96 U/L (38-126); Blood Urea Nitrogen 20 mg/dl (7-17); Calcium 9.1 mg/dl (8.4-10.2); Carbon Dioxide 28 mmol/L (22-30); Chloride 104 mmol/L (98-107); Estimated Creatinine Clearance 62 ml/min; Glucose 168 mg/dl (70-99); Potassium 3.9 mmol/L (3.5-5.1); Sodium 139 mmol/L (135-145); Total Bilirubin 0.5 mg/dl (0.2-1.3); eGFR > 60.00
[2024-06-10 07:43] VITALS: BP 140/89
[2024-06-10] MEDS: DEPAKENE 500 MG TUBE ×2 (08:01→16:52)
[2024-06-10] MEDS: ABILIFY 1 MG TUBE (08:01)
[2024-06-10] MEDS: PROZAC 20 MG TUBE (08:02)
[2024-06-10] MEDS: CLARITIN 10 MG TUBE (08:02)
[2024-06-10] MEDS: SENOKOT 8.6 MG TUBE (08:02)
[2024-06-10] MEDS: DAILY VITAMIN/CENTRUM 15 ML TUBE (08:03)
[2024-06-10] MEDS: STERILE WATER FOR INJECTION 10 ML IV (08:03)
[2024-06-10] MEDS: ROCEPHIN 1000 MG IV (08:04)
[2024-06-10] MEDS: VIBRAMYCIN 260 MG IV ×2 (10:35→22:03)
--- NOTE | 2024-06-10 11:13 | WOUNDNOTE ---
[facility] RN note: Patient admitted with altered mental status, cellulitis of L knee.
See H&P for complete history. Lives at [facility].
PMH: The patient is a 69-year-old woman with past medical history significant for dementia, schizophrenia, seizure disorder, B12 deficiency, insomnia, anxiety
Wound Location and type/assessment: Patient admitted with: L medial heel stage 3 healing ulcer, base pink, scant drainage. Using own offloading heel boot. Reviewed ortho note, aware of heel PI and offloading. Family does not want surgery for L hip
fracture per PA ortho note. R heel and sacrum bladenisa oakley, POOJA Olea assisted with turning.
Appetite: TF Jevity.
Pressure redistribution devices in place: On Centrella air mattress, offloading heel boot to L and air cushion for R heel.
Plan: Local wound care applied to L heel, hospitalist at bedside and approved of wound care. Foam adhesive applied to R heel to protect. Updated nurse, care plan and will follow as needed.
Note to case management of equipment requested for discharge: None.
[2024-06-10 12:54] VITALS: BMI 23.1
[2024-06-10 14:30] VITALS: BP 97/56
[2024-06-10] MEDS: TYLENOL SUSPENSION 592 MG TUBE (14:40)
--- NOTE | 2024-06-10 14:57 | W.PN.HOSP.TC ---
Today's Communication/Plan
-
Will begin discharge planning at this time
Assessment / Plan
Assessment / Plan
NAD, nonverbal, contracted bilateral upper and lower extremity
No JVD
CTABL
RRR, S1/S2
Soft, NT, ND, BS+
Warm, Dry
A/P:
Left hip femoral neck fracture
Evaluated by orthopedics deferred surgery at this time after family discussion especially as she is nonambulatory.
Family are agreeable to this approach.
If continues to have pain then at a later date a hemiarthroplasty can be completed
#Breakthrough seizures
#Acute delirium on dementia, unspecified
TSH, CPK WNL
neuro consult
cont AED
CT head without acute findings, possible NPH, possible sinusitis
Seizure precautions
depakote level not elevated
#Sinusitis
Doxy
#Abdominal pain
CT abd/pelvis
#Lung scarring on XR
no signs of pneumonia
#UTI
minor pyuria with bacterial in UA
possible simple cystitis
Rocephin
Ucx - Proteus mirabilis sensitive to cephalosporins
#Schizophrenia, paranoid
#Anxiety d/o
#Dysphagia on PEG
cont home meds
Branch Chief for PEG feeding recommendations
DVT ppx lovenox
Full code - confirmed with guardian
Anticipated Discharge: Within 24 hours
Subjective/Interval History
-
Date of Service: June 10, 2024
Seen and examined. No acute overnight events.
Objective Data
-
Labs:
Laboratory Results
06/10/24
06:52
WBC 11.1 H
Hgb 12.8
Hct 37.1
Plt Count 187
Sodium 139
Potassium 3.9
Chloride 104
Carbon Dioxide 28
BUN 20 H
Creatinine 0.6
Glucose 168 H
Calcium 9.1
Total Bilirubin 0.5
AST 31
ALT 21
Alkaline Phosphatase 96
Vital Signs:
Vital Signs
Temp Pulse Resp BP Pulse Ox
99.9 F 101 14 97/56 96
06/10/24 14:30 06/10/24 14:30 06/10/24 14:30 06/10/24 14:30 06/10/24 14:30
I&O
06/09/24 06/10/24 06/11/24
06:59 06:59 06:59
Intake Total 2016 1435 / 1435
Balance 2016 / 1435
[2024-06-10 15:15] VITALS: BP 150/86
--- NOTE | 2024-06-10 16:01 | CM ---
Chart reviewed and per sister and POA they are now agreeable to surgery, physician made aware. plan is to return to [facility] when stable.
[facility]
Report [phone]
--- NOTE | 2024-06-10 16:43 | W.PN.UPDATE ---
Update Note
Progress Note Update
I agree with the consult note by Dez Meadows PAC 06/10/2024.
I evaluated the patient at bedside and discussed with the patient's guardian Estephania Suggs. Patient was incidentally noted on CT scan to have a displaced left femoral neck fracture. No known history of fall or injury. The patient has advanced
dementia and lives in a care facility. She was admitted for altered mental status 3 days ago. She mobilizes with a wheelchair and is nonambulatory. She is being treated for seizures and delirium by the medical team.
On exam the patient is supine in bed. She is awake but not oriented. She has contractures of upper and lower extremities. She has pain with passive motion of the left hip and vocalizes pain.
Pelvis and left hip x-rays were reviewed by me which show signs of displaced subacute appearing left femoral neck fracture.
I discussed with the patient's guardian Estephania Suggs treatment options. We discussed given her medical status and cognitive impairment and limited mobility, nonoperative treatment could be an option. Ms Suggs noted the patient had been
crying with position changes up to a week or two ago and that this could be related to the left hip fracture. We discussed that the patient has not a candidate for left hip hemiarthroplasty given her increased infection risk and cognitive impairment
and contractures which could put her at risk for prosthetic joint infection and dislocation. She is nonambulatory so we discussed that a possible palliative surgical treatment option could be Girdlestone of the left hip. We discussed that this
involves removing the left femoral head and fractured portions of the femoral neck. We discussed that Girdlestone procedure would be great without an articulating hip joint but could help alleviate pain with positioning and transfers. We discussed
that the goal of care would not be to achieve weightbearing activity such as walking or standing. After discussing nonoperative and operative treatment options, shared decision was to proceed with left hip Girdlestone procedure to help alleviate
pain we discussed risks. Including infection and leg length discrepancy and limited active mobility of the left hip. All questions were answered.
Gm Marcial MD
[2024-06-10] MEDS: LOVENOX 40 MG SC (16:52)
[2024-06-10] MEDS: MELATONIN 5 MG TUBE (22:00)
[2024-06-10] MEDS: DEPAKENE 250 MG TUBE (22:00)
[2024-06-10] MEDS: ARICEPT 10 MG TUBE (22:00)
[2024-06-10 23:31] VITALS: BP 157/88
[2024-06-11] VITALS (8 sets, daily range): BP systolic 103–157; BP diastolic 60–91
--- NOTE | 2024-06-11 07:39 | W.PN.UPDATE ---
Update Note
Progress Note Update
Patient resting comfortably in bed this morning, sleeping. I did not disturb. Tentative plan for OR later today for left hip girdlestone under the direction of Dr. Marcial pending Cardiology evaluation. Consent was obtained by Dr. Marcial yesterday.
Ancef union laborer to OR. Orthopedics will continue to follow along at this time.
[2024-06-11] MEDS: DAILY VITAMIN/CENTRUM 15 ML TUBE (07:50)
[2024-06-11] MEDS: ABILIFY 1 MG TUBE (07:52)
[2024-06-11] MEDS: SENOKOT 8.6 MG TUBE (07:52)
[2024-06-11] MEDS: CLARITIN 10 MG TUBE (07:52)
[2024-06-11] MEDS: PROZAC 20 MG TUBE (07:52)
[2024-06-11] MEDS: STERILE WATER FOR INJECTION 10 ML IV (07:53)
[2024-06-11] MEDS: DEPAKENE 500 MG TUBE (07:53)
[2024-06-11] MEDS: ROCEPHIN 1000 MG IV (07:53)
--- NOTE | 2024-06-11 08:53 | PN.CDI ---
CDI
- -
CDI:
Physician Documentation Request
Admit Date: 06/07/24 16:11
Dear Doctor Justice,
Patient admitted with breakthrough seizures.
06/07 Nursing skin assessment, 'Stage 3 left medial heel pressure injury, POA.'
Physician documentation of the type and location of wounds is required for compliant documentation. Based on the above clinical findings and your assessment, please provide the following in your progress note:
Type (etiology) of ulcer/wound:
- Pressure (decubitus) ulcer
- Other
- Unable to determine
For a pressure ulcer, please also include the stage* of the ulcer:
- Stage 1 - Skin intact, non-blanchable redness
- Stage 2 - Partial thickness loss of dermis, includes intact or open blister
- Stage 3 - Full thickness tissue not including bone, tendon or muscle
- Stage 4 - Full thickness tissue loss, including exposed bone, tendon or muscle
- Unstageable - Full thickness loss in which the base of the ulcer is covered by slough (yellow, corado, kern, green or brown) and/or eschar (corado, brown or black) in the wound bed.
- Unable to determine
Use of terms such as suspected, likely, concern for, or probable (associated with a specific diagnosis that is being evaluated, monitored, or treated as if it exists) are acceptable and can be coded in the inpatient setting, when documented at the
time of discharge.
Thank you,
Edita MONREAL,RN,CCDS
CDI Specialist
Available via [place] text
Please use your independent medical judgment in providing your response.
*Source: National Pressure Ulcer Advisory Panel (NPUAP)
--- NOTE | 2024-06-11 09:23 | PN.CDI ---
CDI
- -
CDI:
Physician Documentation Request
Admit Date: 06/07/24 16:11
Dear Doctor Justice,
Patient admitted with breakthrough seizures.
06/10 PN,'...contracted bilateral upper and lower extremity...she is nonambulatory....dementia.'
06/09 Case management note, '....bedbound, dependent for care/feeding, PEG tube, Dementia.
Please provide in your note the diagnosis associated with the patient's functional status:
Functional quadriplegia (complete immobility due to severe physical disability or frailty)
Weakness only
Other
Quadriparesis/Quadriplegia
Type
Complete
Incomplete
Unable to determine
Level
C1-C4
C5-C7
Unable to determine
Etiology
CVA, cerebral palsy,
injury, etc.
Functional quadriplegia
complete immobility due
severe physical
disability or frailty
Use of terms such as suspected, likely, concern for, or probable (associated with a specific diagnosis that is being evaluated, monitored, or treated as if it exists) are acceptable and can be coded in the inpatient setting, when documented at the
time of discharge.
Thank you,
Edita MONREAL,RN, CCDS
CDI Specialist
Available via [place] text
Please use your independent medical judgment in providing your response.
--- NOTE | 2024-06-11 10:20 | W.PN.UPDATE ---
Update Note
Progress Note Update
Initial EKG sinus tach with some artifact in inferior leads. Repeat EKG completed today and shows sinus tachycardia with NSSTS.
no issues based on EKG to move forward with planned procedures from cardiac standpoint
[2024-06-11] MEDS: VIBRAMYCIN 260 MG IV ×2 (10:36→21:42)
[2024-06-11] MEDS: TYLENOL SUSPENSION 592 MG TUBE (10:51)
--- NOTE | 2024-06-11 13:04 | W.PN.HOSP.TC ---
Today's Communication/Plan
-
Assessment / Plan
Assessment / Plan
NAD, nonverbal, contracted bilateral upper and lower extremity
No JVD
CTABL
RRR, S1/S2
Soft, NT, ND, BS+
Warm, Dry
A/P:
Left hip femoral neck fracture
Orthopedics will plan to take for a hemiarthroplasty later today
Cardiology has deemed her an acceptable risk
Will need postop PT/OT
#Breakthrough seizures
#Acute delirium on dementia, unspecified
TSH, CPK WNL
neuro consult
cont AED
CT head without acute findings, possible NPH, possible sinusitis
Seizure precautions
depakote level not elevated
#Sinusitis
Doxy
#Abdominal pain
CT abd/pelvis
#Lung scarring on XR
no signs of pneumonia
#UTI
minor pyuria with bacterial in UA
possible simple cystitis
Rocephin
Ucx - Proteus mirabilis sensitive to cephalosporins
#Schizophrenia, paranoid
#Anxiety d/o
#Dysphagia on PEG
cont home meds
Media Reporter for PEG feeding recommendations
DVT ppx lovenox
Full code - confirmed with guardian
Anticipated Discharge: > 48 hours
Subjective/Interval History
-
Date of Service: June 11, 2024
Seen and examined. No new complaints. No acute overnight events
Objective Data
-
Vital Signs:
Vital Signs
Temp Pulse Resp BP Pulse Ox
98.5 F 85 15 154/73 97
06/11/24 07:44 06/11/24 07:44 06/11/24 07:44 06/11/24 07:44 06/11/24 07:50
I&O
06/10/24 06/11/24 06/12/24
06:59 06:59 06:59
Intake Total 1435 / 1435
Balance 1435 / 1435
[2024-06-11] MEDS: DEPAKENE TUBE (15:42)
--- NOTE | 2024-06-11 15:58 | CM ---
Chart reviewed and patient is for possible orthopedic procedure, plan is to return to [facility] snf when stable. solution design and analysis manager confirmed with Estephania CISNEROS.
Plan; Skilled placement at [facility] when stable.
[facility]
Report [phone]
--- NOTE | 2024-06-11 17:33 | OR.RPT ---
Operative Report
Operative Report
Orthopaedic Surgery Operative Note
DATE OF OPERATION: 06/11/2024
PREOPERATIVE DIAGNOSES: Displaced femoral neck fracture, left
POSTOPERATIVE DIAGNOSES: Same
OPERATION PERFORMED: Left hip resection arthroplasty, femoral head resection (girdlestone procedure) - CPT 57242
SURGEON: Ronak Marcial MD
YOUTH LEADER: Thom HAYES who helped with patient and limb positioning and retraction
ANESTHESIA: General
COMPLICATIONS: None.
ESTIMATED BLOOD LOSS: 30 mL.
DRAINS: None
SPECIMEN: None
FINDINGS: Displaced fracture of the femoral neck
IMPLANTS: NA
INDICATIONS: The patient was admitted to [facility] for altered mental status. She has a history of severe dementia and nonambulatory status. She was initially noted to have a left femoral neck fracture. The patient had been noted to
have pain with positioning and transfers. She had pain with passive motion. X-rays and CT showed signs of what appeared to be a subacute femoral neck fracture. I discussed treatment options with the patient's guardian including nonoperative and
operative treatments. We discussed that given her advanced cognitive impairment and joint contractures and nonambulatory status, she would not be a good candidate for hemiarthroplasty. We discussed complications of hemiarthroplasty including
fraction and dislocation. We discussed the option of palliative resection arthroplasty to help alleviate pain and make transfers and positioning less painful for the patient. Shared decision was to proceed with left hip resection arthroplasty.
Risks were discussed which included, but were not limited to, bleeding, infection, failure to relieve pain, more pain than preop, damage to blood vessels and nerves, need for reoperation, wound healing problems, stiffness, instability, blood clot,
pulmonary embolism, myocardial infarction, pneumonia, arrhythmia, CVA, and . All questions were answered, and informed consent was obtained.
PROCEDURE IN DETAIL:
The patient was identified in the preoperative holding area. The left hip was identified as the operative site. The patient was taken in the operating room and transferred to the operative table. General anesthesia was performed. IV antibiotics and
tranexamic acid were administered. The patient was placed in the lateral position with Stulberg hip positioners. Axillary roll was placed. The down leg was well padded. All bony prominences were well padded. The operative limb was prepped and draped
in the usual sterile fashion.
Time out was performed. A posterolateral approach to the hip was used. The skin incision was centered over the greater trochanter. This was taken down sharply through subcutaneous tissues. Meticulous hemostasis was achieved throughout the case with
electrocautery. We split the fascia pedro in line with skin incision. I split the gluteus walter bluntly. We cauterized all crossing vessels as we split it. I palpated the sciatic nerve and made sure it was well posterior in the operative field. It
was protected throughout the case.
The posterior anatomy was distorted due to fracture hematoma and swelling. I performed a partial bursectomy to identify the short external rotators. The gluteus medius and minimus were identified and retracted anteriorly. I incised the piriformis
tendon and conjoint tendon at their insertions. These were tagged for later repair. I then performed a trapezoidal capsulotomy. The edges were tagged for later repair. There was extensive contracture consistent with subacute status of the fracture.
The femoral neck fracture was identified. The leg was flexed and internally rotated, and a fresh femoral neck cut was performed. The femur was translated anteriorly. Care was taken to preserve the labrum. The femoral head was carefully removed with
a holcomb and a tenaculum. No signs of damage soila the acetabulum or arthritis.
The hip was copiously irrigated with sterile saline. Meticulous hemostasis was achieved with electrocautery. I repaired the capsule, piriformis, and conjoint tendon with #2 Ethibond to drill holes in the greater trochanter. Local anesthetic was
injected. The fascia pedro was closed with #1 PDS in running fashion. The subcutaneous tissues were closed with 2-0 PDS in running fashion. The skin was reapproximated with 3-0 Monocryl subcuticular suture. I placed a Prineo dressing followed by a
Mepilex Ag dressing. Sponge and instrument counts were correct x2 at the end of the case. I was present and participated in the maya elements of the procedure.
Gm Marcial MD
[2024-06-11] MEDS: LOVENOX SC (18:13)
[2024-06-11] MEDS: NSS 1000 IV (19:25)
[2024-06-11] MEDS: HEPARIN 5000 UNITS SC (20:05)
[2024-06-11] MEDS: DEPAKENE 250 MG TUBE (21:42)
[2024-06-11] MEDS: ARICEPT 10 MG TUBE (21:43)
[2024-06-11] MEDS: MELATONIN TUBE (21:44)
[2024-06-11] MEDS: ANCEF 5 IV (22:56)
[2024-06-12 03:27] VITALS: BP 98/66
[2024-06-12 07:01] VITALS: BP 118/82
--- NOTE | 2024-06-12 07:33 | W.PN.ORTHO ---
Today's Communication / Plan
-
69F POD 1 left hip resection arthroplasty with Dr. Marcial
-TDWB
-DVT ppx per primary
-Maintain dressing x3 weeks
0-rtho surg will continue to follow
Assessment
.
Distal Motor Intact: Yes
Dressing:
Clean, dry and intact.
Plan
.
Surgery / Date: 06/11/24 Left hip resection arthoplasty
Activity:
Out of bed.
PT/OT
Subjective
.
.:
Patient resting comfortably.
Vital Signs and Labs
.
Vital Signs and Labs:
Temp Pulse Resp BP Pulse Ox
97.7 F 99 16 98/66 93
06/12/24 03:27 06/12/24 03:27 06/12/24 03:27 06/12/24 03:27 06/12/24 03:27
[2024-06-12 08:12] LABS: Hematocrit 33.6 % (37.0-47.0); Hemoglobin 11.2 g/dL (12.0-16.0)
[2024-06-12 08:42] LABS: Blood Urea Nitrogen 25 mg/dl (7-17); Calcium 8.5 mg/dl (8.4-10.2); Carbon Dioxide 27 mmol/L (22-30); Chloride 105 mmol/L (98-107); Estimated Creatinine Clearance 62 ml/min; Glucose 161 mg/dl (70-99); Sodium 139 mmol/L (135-145); eGFR > 60.00
[2024-06-12] MEDS: VIBRAMYCIN 260 MG IV ×2 (09:08→20:42)
[2024-06-12] MEDS: ANCEF 5 IV ×3 (09:08→23:13)
[2024-06-12] MEDS: NSS 1000 IV (09:19)
[2024-06-12] MEDS: ABILIFY 1 MG TUBE (09:21)
[2024-06-12] MEDS: DEPAKENE 500 MG TUBE ×2 (09:21→16:22)
[2024-06-12] MEDS: DAILY VITAMIN/CENTRUM 15 ML TUBE (09:22)
[2024-06-12] MEDS: PROZAC 20 MG TUBE (09:23)
[2024-06-12] MEDS: CLARITIN 10 MG TUBE (09:23)
[2024-06-12] MEDS: HEPARIN 5000 UNITS SC ×2 (09:23→20:27)
[2024-06-12] MEDS: SENOKOT 8.6 MG TUBE (09:23)
[2024-06-12 11:43] VITALS: BP 133/74
--- NOTE | 2024-06-12 14:53 | W.PN.HOSP.TC ---
Today's Communication/Plan
-
Begin dispo planning
Assessment / Plan
Assessment / Plan
NAD, nonverbal, contracted bilateral upper and lower extremity
No JVD
CTABL
RRR, S1/S2
Soft, NT, ND, BS+
Warm, Dry
A/P:
Left hip femoral neck fracture
POD 1 left hip resection arthroplasty
Per PT/OT as at baseline
Ancef for 24hours per Ortho
Follow hgb
#Breakthrough seizures
#Acute delirium on dementia, unspecified
TSH, CPK WNL
neuro consult
cont AED
CT head without acute findings, possible NPH, possible sinusitis
Seizure precautions
depakote level not elevated
#Sinusitis
Doxy
#Abdominal pain
CT abd/pelvis
#Lung scarring on XR
no signs of pneumonia
#UTI
minor pyuria with bacterial in UA
possible simple cystitis
Rocephin
Ucx - Proteus mirabilis sensitive to cephalosporins
#Schizophrenia, paranoid
#Anxiety d/o
#Dysphagia on PEG
cont home meds
Applications Specialist for PEG feeding recommendations
DVT ppx lovenox
Full code - confirmed with guardian
Anticipated Discharge: 24 - 48 hours
Subjective/Interval History
-
Date of Service: June 12, 2024
Seen and examined. No new complaints. No acute overnight events.
Objective Data
-
Labs:
Laboratory Results
06/12/24
07:28
Hgb 11.2 L
Hct 33.6 L
Sodium 139
Potassium 5.0 D
Chloride 105
Carbon Dioxide 27
BUN 25 H
Creatinine 0.6
Glucose 161 H
Calcium 8.5
Vital Signs:
Vital Signs
Temp Pulse Resp BP Pulse Ox
98.6 F 114 18 133/74 95
06/12/24 11:43 06/12/24 11:43 06/12/24 11:43 06/12/24 11:43 06/12/24 11:43
I&O
06/11/24 06/12/24 06/13/24
06:59 06:59 06:59
Intake Total 2139
Balance 2139
[2024-06-12 15:02] VITALS: BP 120/87
--- NOTE | 2024-06-12 15:47 | CM ---
Patient to return [facility] when stable, pillowcase cleaner will notify AMELIA Suggs when stable and transfer plan.
[facility]
Report [phone]
[2024-06-12] MEDS: TYLENOL SUSPENSION 592 MG TUBE (16:22)
[2024-06-12 16:59] VITALS: BP 118/73
[2024-06-12] MEDS: NSS IV (20:26)
[2024-06-12] MEDS: DEPAKENE 250 MG TUBE (20:28)
[2024-06-12] MEDS: MELATONIN 5 MG TUBE (20:28)
[2024-06-12] MEDS: ARICEPT 10 MG TUBE (20:28)
[2024-06-12 23:30] VITALS: BP 108/71
[2024-06-13 07:45] VITALS: BP 127/76
--- NOTE | 2024-06-13 07:46 | W.PN.ORTHO ---
Today's Communication / Plan
-
PT/OT
Aspirin for DVT prophylaxis
May sit in chair
No hip precautions necessary
[facility] facility once medically stable
Follow-up with orthopedics 1 month to check her progress
Ortho to sign off
Assessment
.
Distal Motor Intact: Yes
Dressing:
Clean, dry and intact.
Plan
.
Surgery / Date: 06/11/24 Left hip resection arthoplasty
DVT Prophylaxis: Aspirin
Activity:
Out of bed.
PT/OT
Discharge Plan: SNF
Subjective
.
.:
Patient resting comfortably.
Vital Signs and Labs
.
Vital Signs and Labs:
Temp Pulse Resp BP Pulse Ox
99.1 F 126 20 108/71 93
06/12/24 23:30 06/12/24 23:30 06/12/24 23:30 06/12/24 23:30 06/12/24 23:30
[2024-06-13 08:11] LABS: Hemoglobin 11.2 g/dL (12.0-16.0); Mean Corp Hgb Conc. 33.9 g/dL (33.0-37.0); Mean Corpuscular Hgb 31.4 pg (27.0-31.0); Mean Corpuscular Volume 92.4 fL (81.0-99.0); Mean Platelet Volume 10.6 fL (7.4-10.4); Platelet Count 234 10^3/uL (130-400); Red Blood Cell Count 3.57 10^6/uL (4.20-5.40); Red Cell Dist. Width 13.6 % (11.5-14.5); White Blood Cell Count 11.9 10^3/uL (4.8-10.8)
[2024-06-13 08:18] LABS: Blood Urea Nitrogen 23 mg/dl (7-17); Calcium 8.3 mg/dl (8.4-10.2); Carbon Dioxide 26 mmol/L (22-30); Chloride 105 mmol/L (98-107); Estimated Creatinine Clearance 62 ml/min; Glucose 100 mg/dl (70-99); Potassium 4.8 mmol/L (3.5-5.1); Sodium 136 mmol/L (135-145); eGFR > 60.00
[2024-06-13] MEDS: ABILIFY 1 MG TUBE (09:02)
[2024-06-13] MEDS: ANCEF 5 IV ×3 (09:02→23:23)
[2024-06-13] MEDS: DEPAKENE 500 MG TUBE ×2 (09:02→17:49)
[2024-06-13] MEDS: CLARITIN 10 MG TUBE (09:03)
[2024-06-13] MEDS: PROZAC 20 MG TUBE (09:03)
[2024-06-13] MEDS: SENOKOT 8.6 MG TUBE (09:03)
[2024-06-13] MEDS: HEPARIN 5000 UNITS SC ×2 (09:04→20:25)
[2024-06-13] MEDS: DAILY VITAMIN/CENTRUM 15 ML TUBE (09:04)
[2024-06-13] MEDS: TYLENOL SUSPENSION 592 MG TUBE ×2 (09:05→18:02)
[2024-06-13] MEDS: VIBRAMYCIN 260 MG IV ×2 (09:06→21:20)
--- NOTE | 2024-06-13 09:31 | CM ---
it infrastructure manager reviewed patient's chart and met with patient and patient to return to [facility] when stable. it infrastructure manager will need to reach out to AMELIA Suggs with updates.
[facility]
Report [phone]

Plan; To return to [facility]
[2024-06-13 11:05] LABS: COVID-19 Antigen Negative (Negative)
--- NOTE | 2024-06-13 13:33 | W.PN.HOSP.TC ---
Addendum entered and electronically signed by Angel Luis Rendon MD 06/13/24 14:10:
Stage 3 left medial heel pressure injury, POA
Functional quadriplegia (complete immobility due to severe physical disability or frailty)
Original Note:
Today's Communication/Plan
-
Assessment / Plan
Assessment / Plan
NAD, nonverbal, contracted bilateral upper and lower extremity
No JVD
CTABL
RRR, S1/S2
Soft, NT, ND, BS+
Warm, Dry
A/P:
Fever/tachycardic
She is postop therefore cannot rule out PE therefore CT PE study of ordered
Will obtain flu COVID
Will continue to monitor vitals
If he has another fever would obtain blood cultures and start antibiotics with infectious disease consult
This could also be postop atelectasis however will not participate with incentive spirometer due to baseline mental status
-Will trial Vest therapy
Left hip femoral neck fracture
POD 1 left hip resection arthroplasty
Per PT/OT as at baseline
Ancef for 24hours per Ortho
Follow hgb
#Breakthrough seizures
#Acute delirium on dementia, unspecified
TSH, CPK WNL
neuro consult
cont AED
CT head without acute findings, possible NPH, possible sinusitis
Seizure precautions
depakote level not elevated
#Sinusitis
Doxy
#Abdominal pain
CT abd/pelvis
#Lung scarring on XR
no signs of pneumonia
#UTI
minor pyuria with bacterial in UA
possible simple cystitis
Rocephin
Ucx - Proteus mirabilis sensitive to cephalosporins
#Schizophrenia, paranoid
#Anxiety d/o
#Dysphagia on PEG
cont home meds
Primer Inspector for PEG feeding recommendations
DVT ppx lovenox
Full code - confirmed with guardian
Anticipated Discharge: Within 24 hours
Subjective/Interval History
-
Date of Service: June 13, 2024
Seen and examined
Fever tachycardic
Unable to use incentive spirometer due to baseline mental status
Will check CT PE study
Check COVID flu
Objective Data
-
Labs:
Laboratory Results
06/13/24
06:47
WBC 11.9 H
Hgb 11.2 L
Hct 33.0 L
Plt Count 234 D
Sodium 136
Potassium 4.8
Chloride 105
Carbon Dioxide 26
BUN 23 H
Creatinine 0.6
Glucose 100 H
Calcium 8.3 L
Vital Signs:
Vital Signs
Temp Pulse Resp BP Pulse Ox
100.5 F H 120 20 127/76 98
06/13/24 07:45 06/13/24 07:45 06/13/24 07:45 06/13/24 07:45 06/13/24 07:45
I&O
06/12/24 06/13/24 06/14/24
06:59 06:59 06:59
Intake Total 2140 / 0 1270 / 1270
Balance 2140 / 2140 1270 / 1270
[2024-06-13 15:19] VITALS: BP 120/75
[2024-06-13] MEDS: LOW STRENGTH ASPIRIN 81 MG TUBE (20:26)
[2024-06-13] MEDS: ARICEPT 10 MG TUBE (21:20)
[2024-06-13] MEDS: MELATONIN 5 MG TUBE (21:20)
[2024-06-13] MEDS: DEPAKENE 250 MG TUBE (21:20)
[2024-06-13 23:09] VITALS: BP 119/71
[2024-06-14 07:30] VITALS: BP 108/62
[2024-06-14] MEDS: ANCEF 5 IV (07:35)
[2024-06-14] MEDS: PROZAC 20 MG TUBE (07:35)
[2024-06-14] MEDS: LOW STRENGTH ASPIRIN 81 MG TUBE ×2 (07:37→20:20)
[2024-06-14] MEDS: SENOKOT 8.6 MG TUBE (07:37)
[2024-06-14] MEDS: CLARITIN 10 MG TUBE (07:38)
[2024-06-14] MEDS: ABILIFY 1 MG TUBE (07:38)
[2024-06-14] MEDS: HEPARIN 5000 UNITS SC ×2 (07:39→20:20)
[2024-06-14] MEDS: DEPAKENE 500 MG TUBE ×2 (07:39→16:18)
[2024-06-14] MEDS: DAILY VITAMIN/CENTRUM 15 ML TUBE (07:39)
[2024-06-14 08:18] LABS: Hematocrit 31.5 % (37.0-47.0); Mean Corp Hgb Conc. 34.9 g/dL (33.0-37.0); Mean Corpuscular Hgb 31.8 pg (27.0-31.0); Mean Platelet Volume 9.9 fL (7.4-10.4); Platelet Count 242 10^3/uL (130-400); Red Blood Cell Count 3.46 10^6/uL (4.20-5.40); Red Cell Dist. Width 13.5 % (11.5-14.5); White Blood Cell Count 9.8 10^3/uL (4.8-10.8)
[2024-06-14 08:31] LABS: Blood Urea Nitrogen 23 mg/dl (7-17); Calcium 8.6 mg/dl (8.4-10.2); Carbon Dioxide 27 mmol/L (22-30); Chloride 103 mmol/L (98-107); Estimated Creatinine Clearance 62 ml/min; Glucose 94 mg/dl (70-99); Potassium 4.7 mmol/L (3.5-5.1); Sodium 135 mmol/L (135-145); eGFR > 60.00
--- NOTE | 2024-06-14 10:11 | CM ---
Addendum entered by Nya Delgado 06/14/24 16:02:
Patient has been accepted at [facility] today and will need ambulance transport, call placed to AMELIA Metzger and she is aware and agreeable to plan.
Original Note:
Chart reviewed and patient is followed by AMELIA Perry/Domenica, [phone], plan is for patient to return to [facility] when stable.
[facility]
Report [phone]

Plan; Skilled placement at [facility].
[2024-06-14] MEDS: VIBRAMYCIN 260 MG IV (10:41)
--- NOTE | 2024-06-14 15:30 | W.PN.HOSP.TC ---
Today's Communication/Plan
-
More than 30 minutes spent in discharge including
Final examination of the patient
Summarizing hospital stay
Instructions for continuing care to all relevant caregivers
Preparation of discharge records, prescriptions, and referral forms
Total time spent (in minutes): 33mins
Assessment / Plan
Assessment / Plan
NAD, nonverbal, contracted bilateral upper and lower extremity
No JVD
CTABL
RRR, S1/S2
Soft, NT, ND, BS+
Warm, Dry
Fever/tachycardic
PE negative
Covid Flu neg
This could also be postop atelectasis however will not participate with incentive spirometer due to baseline mental status
Vest therapy as tolerated
If he has another fever would obtain blood cultures and start antibiotics with infectious disease consult
Left hip femoral neck fracture
POD 2 left hip resection arthroplasty
Per PT/OT as at baseline
Ancef for 24hours per Ortho
Follow hgb
ASA 81mg BID [id number] per Ortho PA via TT
#Breakthrough seizures
#Acute delirium on dementia, unspecified
TSH, CPK WNL
neuro consult
cont AED
CT head without acute findings, possible NPH, possible sinusitis
Seizure precautions
depakote level not elevated
#Sinusitis
Doxy
#Abdominal pain
CT abd/pelvis
#Lung scarring on XR
no signs of pneumonia
#UTI
minor pyuria with bacterial in UA
possible simple cystitis
Rocephin
Ucx - Proteus mirabilis sensitive to cephalosporins
#Schizophrenia, paranoid
#Anxiety d/o
#Dysphagia on PEG
cont home meds
Openstack Developer for PEG feeding recommendations
DVT ppx lovenox
Full code - confirmed with guardian
For [facility] when bed available
Anticipated Discharge: Today
Subjective/Interval History
-
Date of Service: June 14, 2024
Seen and examined. No new complaints. No acute overnight events.
Objective Data
-
Labs:
Laboratory Results
06/14/24
07:20
WBC 9.8
Hgb 11.0 L
Hct 31.5 L
Plt Count 242
Sodium 135
Potassium 4.7
Chloride 103
Carbon Dioxide 27
BUN 23 H
Creatinine 0.6
Glucose 94
Calcium 8.6
Vital Signs:
Vital Signs
Temp Pulse Resp BP Pulse Ox
98.4 F 115 16 108/62 92
06/14/24 07:30 06/14/24 07:30 06/14/24 07:30 06/14/24 07:30 06/14/24 07:30
I&O
06/13/24 06/14/24 06/15/24
06:59 06:59 06:59
Intake Total 0 / 2140 2445 / 2445
Balance 2140 / 2140 2445 / 2445
[2024-06-14 15:42] VITALS: BP 105/76
--- NOTE | 2024-06-14 15:59 | W.DCSUMMARY ---
Discharge Summary
Discharge Data
Date of Admission: 06/07/24
Date of Discharge: 06/14/24
-
Pending Results: No
Hospital Course
69-year-old female with past medical history for anxiety, paranoid cytopenia, seizure, B12 deficiency, insomnia sent in for blood around her mouth and a change in mental status.
Presented with altered mental status and blood around the mouth. There was concern for seizure therefore neuro evaluated and recommended to continue current Depakote dose without change and avoid agents that lower threshold. Neuroimaging no evidence
of acute intracranial abnormalities. Neuro did believe the threshold for seizure was lowered by UTI as urine did grow Proteus that is susceptible to Rocephin and was being treated also for sinusitis with doxycycline. This was stopped in favor of
aufmentin x5days.
Discussed case with orthopedic initially it was elected not a surgical candidate however, case reviewed, discussed with family agreedable to OR for ORIF. WIll need to follow up with Ortho in 2 weeks along with continuation of aspirin for 28days.
CT Brain
IMPRESSION:
No evidence of acute intracranial abnormality. Stable CT appearance. Ventricular dilation appears slightly greater than the degree of atrophy, and please correlate with any clinical signs or symptoms that would suggest normal pressure hydrocephalus.
Findings of chronic right sphenoid sinus disease, with slight increase in opacification compared to most recent CT of February 06, 2024. There is also slight interval increase in opacification of the left sphenoid sinus.
CXR
IMPRESSION:
Parenchymal opacity within the medial aspect of the left lower lung, which appears unchanged on direct comparison to previous 2 radiographs, likely representing scarring.
No evidence for new lung parenchymal opacity.
CTAP
IMPRESSION:
1. Subcapital left femoral neck fracture appears acute/subacute.
2. Mild compression deformities of T11, L1 and L5, age indeterminate. Recommend correlation for any point tenderness in these regions.
3. No additional acute process in the abdomen or pelvis.
4. Mild to moderate diffuse colonic and rectal stool burden may reflect constipation.
5. Right middle lobe pulmonary nodules measuring up to 5 mm. If the patient is considered high risk, an optional follow-up noncontrast CT chest can be obtained in 12 months. The [facility] Pulmonary Nodule Advisory Board will be notified.
Hip Xray
IMPRESSION:
Comminuted impacted subcapital left femoral neck fracture with marked varus angulation. No intertrochanteric or intra-articular extension or dislocation.
Diffuse demineralization. Mild degenerative changes of the pubis symphysis, both hips, bilateral sacroiliac joints and partially visualized lower lumbar spine. Soft tissues are grossly unremarkable.
Was also found to have a left hip fracture. Was evaluated by Ortho that recommened initially against repair and she was nonambulatory. Though family wanted surgery and Ortho was asked to re-evaluate at this time.
Wound Care Instructions
L heel: clean with saline, skin prep periwound, adaptic, abd pad and naomi change daily.
offloading heel boot
Discharge Plan
-
Patient Disposition: Prison/SNF
Discharge Diagnosis/Procedures: Breakthrough seizure
Left hip fracture
Proteus UTI
Additional Diets: Cotninue TF
Activity: With assistance
Additional Activity: Wheelchair bound
Driving Restrictions: No driving
Activity Restrictions/Additional Instructions:
Presented with altered mental status and blood around the mouth. There was concern for seizure therefore neuro evaluated and recommended to continue current Depakote dose without change and avoid agents that lower threshold. Neuroimaging no evidence
of acute intracranial abnormalities. Neuro did believe the threshold for seizure was lowered by UTI as urine did grow Proteus that is susceptible to Rocephin and was being treated also for sinusitis with doxycycline. This was stopped in favor of
aufmentin x5days.
Discussed case with orthopedic initially it was elected not a surgical candidate however, case reviewed, discussed with family agreedable to OR for ORIF. WIll need to follow up with Ortho in 2 weeks along with continuation of aspirin for 28days.
CT Brain
IMPRESSION:
No evidence of acute intracranial abnormality. Stable CT appearance. Ventricular dilation appears slightly greater than the degree of atrophy, and please correlate with any clinical signs or symptoms that would suggest normal pressure hydrocephalus.
Findings of chronic right sphenoid sinus disease, with slight increase in opacification compared to most recent CT of February 06, 2024. There is also slight interval increase in opacification of the left sphenoid sinus.
CXR
IMPRESSION:
Parenchymal opacity within the medial aspect of the left lower lung, which appears unchanged on direct comparison to previous 2 radiographs, likely representing scarring.
No evidence for new lung parenchymal opacity.
CTAP
IMPRESSION:
1. Subcapital left femoral neck fracture appears acute/subacute.
2. Mild compression deformities of T11, L1 and L5, age indeterminate. Recommend correlation for any point tenderness in these regions.
3. No additional acute process in the abdomen or pelvis.
4. Mild to moderate diffuse colonic and rectal stool burden may reflect constipation.
5. Right middle lobe pulmonary nodules measuring up to 5 mm. If the patient is considered high risk, an optional follow-up noncontrast CT chest can be obtained in 12 months. The [facility] Pulmonary Nodule Advisory Board will be notified.
Hip Xray
IMPRESSION:
Comminuted impacted subcapital left femoral neck fracture with marked varus angulation. No intertrochanteric or intra-articular extension or dislocation.
Diffuse demineralization. Mild degenerative changes of the pubis symphysis, both hips, bilateral sacroiliac joints and partially visualized lower lumbar spine. Soft tissues are grossly unremarkable.
Was also found to have a left hip fracture. Was evaluated by Ortho that recommened initially against repair and she was nonambulatory. Though family wanted surgery and Ortho was asked to re-evaluate at this time.
Wound Care Instructions
L heel: clean with saline, skin prep periwound, adaptic, abd pad and naomi change daily.
offloading heel boot
Referrals:
Huber Hale DO [Family Provider] -
Ronak Marcial MD [Active] - in two weeks
Prescriptions:
New
amoxicillin-pot clavulanate [Augmentin] 500-125 mg tablet
1 tab PO BID Qty: 10 0RF
donepezil 10 mg Tablet
10 mg feeding tube HS Qty: 30 0RF
sennosides-docusate sodium 8.6-50 mg Tablet
1 tab PO BIDPRN PRN (Reason: constipation) Qty: 30 0RF
aspirin 81 mg Tablet,Chewable
81 mg feeding tube BID Qty: 60 0RF
Continued
melatonin 5 MG tablet
5 mg feeding tube HS
bisacodyl [Dulcolax (bisacodyl)] 10 mg Suppository
10 mg DC DAILY PRN (Reason: if no results for MOM)
therapeutic multivitamin Liquid
15 ml feeding tube DAILY
sennosides [senna] 8.6 mg Tablet
8.6 mg feeding tube DAILY
acetaminophen 160 mg/5 mL Liquid
592 mg feeding tube Q6HPRN PRN (Reason: mild pain)
Rx Instructions:
18.5 ml.
valproic acid (as sodium salt) 250 mg/5 mL Solution
500 mg feeding tube BID
valproic acid (as sodium salt) 250 mg/5 mL Solution
250 mg feeding tube HS
fluoxetine [Prozac] 20 mg Capsule
20 mg feeding tube DAILY
loratadine [Claritin] 10 mg Tablet
10 mg feeding tube DAILY
magnesium hydroxide [Milk of Magnesia] 400 mg/5 mL Suspension
30 ml feeding tube [id number] PRN (Reason: no bm x3 days)
aripiprazole 2 mg Tablet
1 mg feeding tube DAILY
Discharge Orders:
Discharge Patient (As Directed); Ordered 06/14/24
Ordered By: Angel Luis Rendon
Discharge Date and Time
Print Language: SLOVAK
[2024-06-14] MEDS: ARICEPT 10 MG TUBE (21:32)
[2024-06-14] MEDS: DEPAKENE 250 MG TUBE (21:32)
[2024-06-14] MEDS: MELATONIN 5 MG TUBE (21:32)
[2024-06-14 22:59] VITALS: BP 130/85
[2024-06-15 07:31] LABS: Hematocrit 31.6 % (37.0-47.0); Hemoglobin 10.7 g/dL (12.0-16.0); Mean Corp Hgb Conc. 33.9 g/dL (33.0-37.0); Mean Corpuscular Hgb 31.2 pg (27.0-31.0); Mean Corpuscular Volume 92.1 fL (81.0-99.0); Mean Platelet Volume 9.2 fL (7.4-10.4); Platelet Count 314 10^3/uL (130-400); Red Blood Cell Count 3.43 10^6/uL (4.20-5.40); Red Cell Dist. Width 13.5 % (11.5-14.5); White Blood Cell Count 9.3 10^3/uL (4.8-10.8)
[2024-06-15] MEDS: ABILIFY 1 MG TUBE (07:31)
[2024-06-15] MEDS: PROZAC 20 MG TUBE (07:32)
[2024-06-15] MEDS: CLARITIN 10 MG TUBE (07:32)
[2024-06-15] MEDS: SENOKOT 8.6 MG TUBE (07:35)
[2024-06-15] MEDS: LOW STRENGTH ASPIRIN 81 MG TUBE ×2 (07:35→23:29)
[2024-06-15] MEDS: HEPARIN 5000 UNITS SC ×2 (07:36→23:29)
[2024-06-15] MEDS: DEPAKENE 500 MG TUBE ×2 (07:37→17:44)
[2024-06-15] MEDS: DAILY VITAMIN/CENTRUM 15 ML TUBE (07:38)
[2024-06-15 07:58] LABS: Blood Urea Nitrogen 23 mg/dl (7-17); Calcium 8.5 mg/dl (8.4-10.2); Carbon Dioxide 27 mmol/L (22-30); Chloride 101 mmol/L (98-107); Estimated Creatinine Clearance 62 ml/min; Glucose 113 mg/dl (70-99); Potassium 4.9 mmol/L (3.5-5.1); Sodium 135 mmol/L (135-145); eGFR > 60.00
[2024-06-15 11:45] VITALS: BP 128/80
--- NOTE | 2024-06-15 12:28 | CM ---
Pt for discharge today.
Pt will dc to [facility] via w/c van.
IMM issued verbally to AMELIA Best.
[2024-06-15 15:00] VITALS: BP 154/61
--- NOTE | 2024-06-15 15:21 | W.PN.HOSP.TC ---
Today's Communication/Plan
-
Discharged to [facility] at 8 PM once transportation arrives to take
Assessment / Plan
Assessment / Plan
NAD, nonverbal, contracted bilateral upper and lower extremity
No JVD
CTABL
RRR, S1/S2
Soft, NT, ND, BS+
Warm, Dry
Fever/tachycardic
PE negative
Covid Flu neg
This could also be postop atelectasis however will not participate with incentive spirometer due to baseline mental status
Vest therapy as tolerated
If he has another fever would obtain blood cultures and start antibiotics with infectious disease consult
Left hip femoral neck fracture
POD 2 left hip resection arthroplasty
Per PT/OT as at baseline
Ancef for 24hours per Ortho
Follow hgb
ASA 81mg BID [id number] per Ortho PA via TT
#Breakthrough seizures
#Acute delirium on dementia, unspecified
TSH, CPK WNL
neuro consult
cont AED
CT head without acute findings, possible NPH, possible sinusitis
Seizure precautions
depakote level not elevated
#Sinusitis
Doxy
#Abdominal pain
CT abd/pelvis
#Lung scarring on XR
no signs of pneumonia
#UTI
minor pyuria with bacterial in UA
possible simple cystitis
Rocephin
Ucx - Proteus mirabilis sensitive to cephalosporins
#Schizophrenia, paranoid
#Anxiety d/o
#Dysphagia on PEG
cont home meds
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
DVT ppx lovenox
Full code - confirmed with guardian
[facility] when bed available
Anticipated Discharge: Today
Subjective/Interval History
-
Date of Service: June 15, 2024
Seen and examined. No new complaints. No acute overnight events.
Objective Data
-
Labs:
Laboratory Results
06/15/24
06:25
WBC 9.3
Hgb 10.7 L
Hct 31.6 L
Plt Count 314 D
Sodium 135
Potassium 4.9
Chloride 101
Carbon Dioxide 27
BUN 23 H
Creatinine 0.6
Glucose 113 H
Calcium 8.5
Vital Signs:
Vital Signs
Temp Pulse Resp BP Pulse Ox
98.2 F 108 18 128/80 95
06/15/24 11:45 06/15/24 11:45 06/15/24 11:45 06/15/24 11:45 06/15/24 11:45
I&O
06/14/24 06/15/24 06/16/24
06:59 06:59 06:59
Intake Total 2445 / 2445 1175 / 1175
Balance 2445 / 2445 1175 / 1175
--- NOTE | 2024-06-15 15:22 | W.DCSUMMARY ---
Addendum entered and electronically signed by Angel Luis Rendon MD 06/16/24 10:10:
Discharge summary date should be changed to 06/16/2024
Original Note:
Discharge Summary
Discharge Data
Date of Admission: 06/07/24
Date of Discharge: 06/15/24
-
Pending Results: No
Hospital Course
69-year-old female with past medical history for anxiety, paranoid cytopenia, seizure, B12 deficiency, insomnia sent in for blood around her mouth and a change in mental status.
Presented with altered mental status and blood around the mouth. There was concern for seizure therefore neuro evaluated and recommended to continue current Depakote dose without change and avoid agents that lower threshold. Neuroimaging no evidence
of acute intracranial abnormalities. Neuro did believe the threshold for seizure was lowered by UTI as urine did grow Proteus that is susceptible to Rocephin and was being treated also for sinusitis with doxycycline. This was stopped in favor of
aufmentin x5days.
Discussed case with orthopedic initially it was elected not a surgical candidate however, case reviewed, discussed with family agreeable to OR for ORIF. WIll need to follow up with Ortho in 2 weeks along with continuation of aspirin for 28days.
CT Brain
IMPRESSION:
No evidence of acute intracranial abnormality. Stable CT appearance. Ventricular dilation appears slightly greater than the degree of atrophy, and please correlate with any clinical signs or symptoms that would suggest normal pressure hydrocephalus.
Findings of chronic right sphenoid sinus disease, with slight increase in opacification compared to most recent CT of February 06, 2024. There is also slight interval increase in opacification of the left sphenoid sinus.
CXR
IMPRESSION:
Parenchymal opacity within the medial aspect of the left lower lung, which appears unchanged on direct comparison to previous 2 radiographs, likely representing scarring.
No evidence for new lung parenchymal opacity.
CTAP
IMPRESSION:
1. Subcapital left femoral neck fracture appears acute/subacute.
2. Mild compression deformities of T11, L1 and L5, age indeterminate. Recommend correlation for any point tenderness in these regions.
3. No additional acute process in the abdomen or pelvis.
4. Mild to moderate diffuse colonic and rectal stool burden may reflect constipation.
5. Right middle lobe pulmonary nodules measuring up to 5 mm. If the patient is considered high risk, an optional follow-up noncontrast CT chest can be obtained in 12 months. The [facility] Pulmonary Nodule Advisory Board will be notified.
Hip Xray
IMPRESSION:
Comminuted impacted subcapital left femoral neck fracture with marked varus angulation. No intertrochanteric or intra-articular extension or dislocation.
Diffuse demineralization. Mild degenerative changes of the pubis symphysis, both hips, bilateral sacroiliac joints and partially visualized lower lumbar spine. Soft tissues are grossly unremarkable.
Was also found to have a left hip fracture. Was evaluated by Ortho that recommened initially against repair and she was nonambulatory. Though family wanted surgery and Ortho was asked to re-evaluate at this time.
Wound Care Instructions
L heel: clean with saline, skin prep periwound, adaptic, abd pad and naomi change daily.
offloading heel boot
Discharge Plan
-
Patient Disposition: Longterm/SNF
Discharge Diagnosis/Procedures: Breakthrough seizure
Left hip fracture
Proteus UTI
Additional Diets: Cotninue TF
Activity: With assistance
Additional Activity: Wheelchair bound
Driving Restrictions: No driving
Activity Restrictions/Additional Instructions:
Presented with altered mental status and blood around the mouth. There was concern for seizure therefore neuro evaluated and recommended to continue current Depakote dose without change and avoid agents that lower threshold. Neuroimaging no evidence
of acute intracranial abnormalities. Neuro did believe the threshold for seizure was lowered by UTI as urine did grow Proteus that is susceptible to Rocephin and was being treated also for sinusitis with doxycycline. This was stopped in favor of
aufmentin x5days.
Discussed case with orthopedic initially it was elected not a surgical candidate however, case reviewed, discussed with family agreedable to OR for ORIF. WIll need to follow up with Ortho in 2 weeks along with continuation of aspirin for 28days.
CT Brain
IMPRESSION:
No evidence of acute intracranial abnormality. Stable CT appearance. Ventricular dilation appears slightly greater than the degree of atrophy, and please correlate with any clinical signs or symptoms that would suggest normal pressure hydrocephalus.
Findings of chronic right sphenoid sinus disease, with slight increase in opacification compared to most recent CT of February 06, 2024. There is also slight interval increase in opacification of the left sphenoid sinus.
CXR
IMPRESSION:
Parenchymal opacity within the medial aspect of the left lower lung, which appears unchanged on direct comparison to previous 2 radiographs, likely representing scarring.
No evidence for new lung parenchymal opacity.
CTAP
IMPRESSION:
1. Subcapital left femoral neck fracture appears acute/subacute.
2. Mild compression deformities of T11, L1 and L5, age indeterminate. Recommend correlation for any point tenderness in these regions.
3. No additional acute process in the abdomen or pelvis.
4. Mild to moderate diffuse colonic and rectal stool burden may reflect constipation.
5. Right middle lobe pulmonary nodules measuring up to 5 mm. If the patient is considered high risk, an optional follow-up noncontrast CT chest can be obtained in 12 months. The [facility] Pulmonary Nodule Advisory Board will be notified.
Hip Xray
IMPRESSION:
Comminuted impacted subcapital left femoral neck fracture with marked varus angulation. No intertrochanteric or intra-articular extension or dislocation.
Diffuse demineralization. Mild degenerative changes of the pubis symphysis, both hips, bilateral sacroiliac joints and partially visualized lower lumbar spine. Soft tissues are grossly unremarkable.
Was also found to have a left hip fracture. Was evaluated by Ortho that recommened initially against repair and she was nonambulatory. Though family wanted surgery and Ortho was asked to re-evaluate at this time.
Wound Care Instructions
L heel: clean with saline, skin prep periwound, adaptic, abd pad and naomi change daily.
offloading heel boot
Referrals:
Huber Hale I., [Family Provider] -
Ronak Marcial MD [Active] - in two weeks
Prescriptions:
New
amoxicillin-pot clavulanate [Augmentin] 500-125 mg tablet
1 tab PO BID Qty: 10 0RF
donepezil 10 mg Tablet
10 mg feeding tube HS Qty: 30 0RF
sennosides-docusate sodium 8.6-50 mg Tablet
1 tab PO BIDPRN PRN (Reason: constipation) Qty: 30 0RF
aspirin 81 mg Tablet,Chewable
81 mg feeding tube BID Qty: 60 0RF
Continued
melatonin 5 MG tablet
5 mg feeding tube HS
bisacodyl [Dulcolax (bisacodyl)] 10 mg Suppository
10 mg [place] DAILY PRN (Reason: if no results for MOM)
therapeutic multivitamin Liquid
15 ml feeding tube DAILY
sennosides [senna] 8.6 mg Tablet
8.6 mg feeding tube DAILY
acetaminophen 160 mg/5 mL Liquid
592 mg feeding tube Q6HPRN PRN (Reason: mild pain)
Rx Instructions:
18.5 ml.
valproic acid (as sodium salt) 250 mg/5 mL Solution
500 mg feeding tube BID
valproic acid (as sodium salt) 250 mg/5 mL Solution
250 mg feeding tube HS
fluoxetine [Prozac] 20 mg Capsule
20 mg feeding tube DAILY
loratadine [Claritin] 10 mg Tablet
10 mg feeding tube DAILY
magnesium hydroxide [Milk of Magnesia] 400 mg/5 mL Suspension
30 ml feeding tube [id number] PRN (Reason: no bm x3 days)
aripiprazole 2 mg Tablet
1 mg feeding tube DAILY
Discharge Orders:
Discharge Patient (As Directed); Ordered 06/14/24
Ordered By: Angel Luis Rendon
Discharge Date and Time
Print Language: VIETNAMESE
[2024-06-15 21:18] VITALS: BP 126/76
[2024-06-15] MEDS: MELATONIN 5 MG TUBE (23:26)
[2024-06-15] MEDS: ARICEPT 10 MG TUBE (23:26)
[2024-06-15] MEDS: DEPAKENE 250 MG TUBE (23:28)
[2024-06-16 07:45] VITALS: BP 87/59
[2024-06-16 08:11] LABS: Hematocrit 33.4 % (37.0-47.0); Hemoglobin 11.7 g/dL (12.0-16.0); Mean Corpuscular Hgb 31.7 pg (27.0-31.0); Mean Corpuscular Volume 90.5 fL (81.0-99.0); Mean Platelet Volume 9.9 fL (7.4-10.4); Platelet Count 336 10^3/uL (130-400); Red Blood Cell Count 3.69 10^6/uL (4.20-5.40); Red Cell Dist. Width 13.4 % (11.5-14.5); White Blood Cell Count 9.4 10^3/uL (4.8-10.8)
[2024-06-16 08:40] LABS: Blood Urea Nitrogen 21 mg/dl (7-17); Calcium 8.9 mg/dl (8.4-10.2); Carbon Dioxide 25 mmol/L (22-30); Chloride 101 mmol/L (98-107); Estimated Creatinine Clearance 53 ml/min; Glucose 117 mg/dl (70-99); Potassium 5.1 mmol/L (3.5-5.1); Sodium 133 mmol/L (135-145); eGFR > 60.00
[2024-06-16] MEDS: ABILIFY 1 MG TUBE (08:59)
[2024-06-16] MEDS: DAILY VITAMIN/CENTRUM 15 ML TUBE (08:59)
[2024-06-16] MEDS: DEPAKENE 500 MG TUBE (08:59)
[2024-06-16] MEDS: SENOKOT 8.6 MG TUBE (09:00)
[2024-06-16] MEDS: CLARITIN 10 MG TUBE (09:01)
[2024-06-16] MEDS: LOW STRENGTH ASPIRIN 81 MG TUBE (09:01)
[2024-06-16] MEDS: PROZAC 20 MG TUBE (09:01)
[2024-06-16] MEDS: HEPARIN 5000 UNITS SC (09:02)
[2024-06-16 10:06] VITALS: BP 95/59
--- NOTE | 2024-06-16 10:09 | W.PN.HOSP.TC ---
Today's Communication/Plan
-
Discharge when bed available to [facility]
Assessment / Plan
Assessment / Plan
NAD, nonverbal, contracted bilateral upper and lower extremity
No JVD
CTABL
RRR, S1/S2
Soft, NT, ND, BS+
Warm, Dry
Fever/tachycardic. No further episode for the last 48 hours
PE negative
Covid Flu neg
This could also be postop atelectasis however will not participate with incentive spirometer due to baseline mental status
Vest therapy as tolerated
If he has another fever would obtain blood cultures and start antibiotics with infectious disease consult
Left hip femoral neck fracture
POD 3 left hip resection arthroplasty
Per PT/OT as at baseline
Ancef for 24hours per Ortho
Follow hgb
ASA 81mg BID [id number] per Ortho PA via TT
#Breakthrough seizures
#Acute delirium on dementia, unspecified
TSH, CPK WNL
neuro consult
cont AED
CT head without acute findings, possible NPH, possible sinusitis
Seizure precautions
depakote level not elevated
#Sinusitis
Doxy
#Abdominal pain
CT abd/pelvis
#Lung scarring on XR
no signs of pneumonia
#UTI
minor pyuria with bacterial in UA
possible simple cystitis
Rocephin
Ucx - Proteus mirabilis sensitive to cephalosporins
#Schizophrenia, paranoid
#Anxiety d/o
#Dysphagia on PEG
cont home meds
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
DVT ppx lovenox
Full code - confirmed with guardian
For [facility] when bed available
Anticipated Discharge: Today
Subjective/Interval History
-
Date of Service: June 16, 2024
Seen and examined. Clinically remains unchanged and ready for discharge
Objective Data
-
Labs:
Laboratory Results
06/16/24
07:17
WBC 9.4
Hgb 11.7 L
Hct 33.4 L
Plt Count 336
Sodium 133 L
Potassium 5.1
Chloride 101
Carbon Dioxide 25
BUN 21 H
Creatinine 0.7
Glucose 117 H
Calcium 8.9
Vital Signs:
Vital Signs
Temp Pulse Resp BP Pulse Ox
98.6 F 119 20 95/59 95
06/16/24 07:45 06/16/24 10:06 06/16/24 07:45 06/16/24 10:06 06/16/24 08:30
I&O
06/15/24 06/16/24 06/17/24
06:59 06:59 06:59
Intake Total 1175 / 1175
Balance 1175 / 1175
--- NOTE | 2024-06-16 10:16 | PTCARENOTE ---
Pt for dc at 1045 to [facility]. Report called to [facility], paperwork updated, iv previously removed.
--- NOTE | 2024-06-16 11:00 | PTCARENOTE ---
Transport arrived to take pt via stretcher and ambulance without issue
== END 2024-06-16 11:02 | DRG 981 ==
LOC: 4 WEST ACU 16:11
PROVIDERS: Internal Medicine; Student in an Organized Health Care Education/Training Program; ADMITTING PHYSICIAN Internal Medicine; ATTENDING PHYSICIAN Hospitalist; CONSULT PHYSICIAN Orthopaedic Surgery; CONSULT PHYSICIAN Psychiatry & Neurology Neurology; EMERGENCY PHYSICIAN Emergency Medicine; FAMILY PHYSICIAN Internal Medicine
PROC: 0QT70ZZ Resection of Left Upper Femur, Open Approach (ICD-10-PCS; 2024-06-11)
DX: G40.909 Epilepsy, unspecified, not intractable, without status epilepticus (principal); G93.41 Metabolic encephalopathy; L89.623 Pressure ulcer of left heel, stage 3; R53.2 Functional quadriplegia; M80.052A Age-related osteoporosis with current pathological fracture, left femur, initial encounter for fracture; N39.0 Urinary tract infection, site not specified; F20.0 Paranoid schizophrenia; F05 Delirium due to known physiological condition; F03.C4 Unspecified dementia, severe, with anxiety; F03.C3 Unspecified dementia, severe, with mood disturbance; B96.4 Proteus (mirabilis) (morganii) as the cause of diseases classified elsewhere; K59.00 Constipation, unspecified; E53.8 Deficiency of other specified B group vitamins; G47.00 Insomnia, unspecified; Z99.3 Dependence on wheelchair; Z11.52 Encounter for screening for COVID-19; Z93.1 Gastrostomy status; R13.10 Dysphagia, unspecified; F32.A Depression, unspecified
CPT/HCPCS: 51701; 70450; 71045; 71275; 73502; 73521; 74177; 80048; 80053; 80164; 81003; 81015; 82550; 84439; 84443; 85014; 85018; 85025; 85027; 86850; 86900; 86901; 87077; 87086; 87186; 87502; 87811; 93005; 94669; 94760; 99285; Q9967

== ENCOUNTER 2024-06-16 20:09 | Inpatient (IN) | payer MEDICARE, OTHER, SELFPAY ==
[2024-06-16] VITALS (7 sets, daily range): BP systolic 100–137; BP diastolic 65–78; BMI 21.0
[2024-06-16 16:21] LABS: % Basophils 0.3 % (0-2); % Eosinophils 0.8 % (0-6); % Immature Granulocytes 0.8 % (0-0.5); % Monocytes 9.8 % (1.7-9.3); % Neutrophils 62.3 % (42.2-75.2); Absolute Eosinophils 0.1 10^3/uL (0-0.7); Absolute Immature Granulocytes 0.1 10^3/uL (0-0.05); Absolute Monocytes 1.1 10^3/uL (0.1-0.6); Absolute Neutrophils 7.2 10^3/uL (1.4-6.5); Hematocrit 35.1 % (37.0-47.0); Hemoglobin 12.1 g/dL (12.0-16.0); Mean Corp Hgb Conc. 34.5 g/dL (33.0-37.0); Mean Corpuscular Hgb 31.8 pg (27.0-31.0); Mean Corpuscular Volume 92.1 fL (81.0-99.0); Mean Platelet Volume 8.7 fL (7.4-10.4); Nucleated Red Blood Cells % 0 %; Platelet Count 413 10^3/uL (130-400); Red Blood Cell Count 3.81 10^6/uL (4.20-5.40); Red Cell Dist. Width 13.4 % (11.5-14.5); White Blood Cell Count 11.6 10^3/uL (4.8-10.8)
--- NOTE | 2024-06-16 16:22 | ED.GENMED ---
History of Present Illness
General
Chief Complaint: Heart Rate Problem
Source: ambulance crew
Time Seen by Provider: 06/16/24 16:07
History of Present Illness
History of Present Illness:
69-year-old female presents to the emergency room [facility]. Patient was discharged from this hospital this morning. Upon arrival to the facility she was noted to be tachycardic. She was sent back to the emergency room as
they were concerned she might have sepsis. Patient is nonverbal and unable to provide any history. Patient was discharged from the hospital after an admission for altered mental status. She was found to have a urinary tract infection and started
on Augmentin. She also was found to have a hip fracture which was repaired surgically. Patient is postop day #5.
Past History
Past History
ED Past Medical History: Other (Dementia, anxiety, depression, ambulatory dysfunction, edema)
ED Past Surgical History: Other
Social History
Tobacco: Non-smoker
Alcohol: Other
Drug: Other
Personal: Other
Living: [facility]
Employment: Other
Family History
Family History: Other
Phy Exam
Physical Exam
Physical Exam:
General: Eyes closed, nonverbal. Does react to nasal swab. Cachectic, contracted and chronically ill-appearing
Vitals: Mildly tachycardic. Rectal temp 100.3
Head: Atraumatic
Eyes: Pupils equal, EOMI
Throat: Airway intact, no exudates
Neck: Trachea midline
Lungs: Clear and equal b/l
Heart: Regular rate, no murmurs
Abd: Soft, feeding tube in place, no apparent tenderness, No pulsatile mass
Neuro: Contracted appears to move both arms
Skin: Warm, dry, no rash
Extremities: pulses equal b/l, no edema. Contracture of extremities. Left hip incision has dressing intact but no surrounding erythema. Dressing is dry.
Course
Orders/Labs/Results
Orders:
Orders
06/16/24 16:11
Electrocardiogram (*1) Urgent
Reason for Study: Other
Other Reason for Exam: Possible Sepsis
Cardiac Monitoring- Treatment ONCE
EKG- Treatment ONCE
IV Insert/Care/Rem.- Treatment PRN
O2 Therapy [RESP] Urgent
Titrate/Wean O2 to maintain O2 sat greater than (%): 93
Special Instructions: TO MAINTAIN CONTINUOUS O2 SATS > OR = 93%
Pulse Ox/cont/shift [RESP] Urgent
Quantity: 1
Special Instructions: CONTINUOUS
06/16/24 16:13
Complete Blood Count/With Diff Urgent
Comprehensive Metabolic Panel Urgent
Lactic Acid Q4H
Comment: ON ICE, CANCEL 2ND ORDER IF FIRST LACTIC ACID LEVEL <2
Blood Culture Q20M
CLEMENTE Source: Blood/Venous
Specimen Description:
Comment: Urgent from separate sites. If patient screens positive for possible sepsis
06/16/24 16:19
COVID-19 Antigen Urgent
Source: Nasal Swab
Influenza A+B Rapid Molecular Urgent
CLEMENTE Source: Nasal Swab
Specimen Description:
06/16/24 16:22
CR Chest Portable - 1 View Urgent
Comment:
Reason For Exam: tachycardia
Reason Study Needs to be Portable: Unable to Transport
06/16/24 17:03
Blood Culture Q20M
CLEMENTE Source: Blood/Venous
Specimen Description:
Comment: Urgent from separate sites. If patient screens positive for possible sepsis
06/16/24 17:50
Influenza A+B Rapid Molecular Urgent
CLEMENTE Source: [facility]
Specimen Description:
06/16/24 19:57
Admit/Transfer Patient As Directed
Co-Sign Provider:
Level of Care: Inpatient admission
Assign to:: Medical/Surgical
Physician / Group: Bruna Jackson
Diagnosis: tachycardia, febrile
Reason for Hospitalization: tachycardia, febrile
Expected length of stay greater than two midnights?: Yes
ELOS- Estimated Length of Stay in days: 3
I certify the patient meets the requirements for IP care: Yes
06/16/24 19:58
PRN Pain Medication Management As Directed
May give lesser potent ordered pain med per pt: Yes
preference::
Protocol:: Medication orders for pain may be administered in a
manner that supports deferring to patient preference
when the pt is:
- Requesting an ordered lesser potent pain medication.
Least to most potent pain medications are defined
as: acetaminophen < NSAID < tramadol < opioids
(morphine, oxycodone, hydromorphone).
- Requesting a lesser dose of the same medication IF
ORDERED.
- Requesting a less intrusive route of administration
if both routes are prescribed by the provider (PO <
IV).
06/16/24 20:00
Code Status As Directed
Resuscitation Status: Full Code
Abnormal Lab Results
06/16/24
16:13
WBC 11.6 H 10^3/uL
(4.8-10.8)
RBC 3.81 L 10^6/uL
(4.20-5.40)
Hct 35.1 L %
(37.0-47.0)
MCH 31.8 H pg
(27.0-31.0)
Plt Count 413 H D 10^3/uL
(130-400)
Abs Immat Gran (auto) 0.1 H 10^3/uL
(0-0.05)
Absolute Neuts (auto) 7.2 H 10^3/uL
(1.4-6.5)
Absolute Monos (auto) 1.1 H 10^3/uL
(0.1-0.6)
Immature Gran % 0.8 H %
(0-0.5)
Monocytes % 9.8 H %
(1.7-9.3)
Sodium 134 L mmol/L
(135-145)
BUN 19 H mg/dl
(7-17)
Total Protein 6.1 L g/dl
(6.3-8.2)
Albumin 3.3 L g/dl
(3.5-5.0)
06/16/24 16:13
06/16/24 16:13
Vital Signs
Initial and Last Documented VS:
Initial Vital Signs
Temp
98.6 F
06/16/24 15:37
Last Documented Vital Signs
Temp Pulse Resp BP Pulse Ox
99.9 F 101 22 109/69 97
06/16/24 18:35 06/16/24 22:00 06/16/24 22:00 06/16/24 22:00 06/16/24 19:00
MDM/Problems Addressed
Differential Diagnosis Includes:
Viral illness, pneumonia, bacteremia, postop fever,
MDM/Problems Addressed:
Patient presents to the emergency room after being discharged from the hospital today. [facility] because they found to be tachycardic. On arrival here the patient has a borderline rectal temperature of 100.3. She is
tachycardic. She is unable to provide any history given her dementia. Workup here shows mildly elevated white count 11.6. Chemistries are unchanged from yesterday. Patient actually taking Augmentin at this time. I reviewed the notes from the
hospitalist from her admission. The last note from the hospital suggest that patient were to spike another fever they would obtain blood cultures, infectious disease consult. Will admit the patient to the hospital service for further evaluation.
There is no clear source of infection requiring antibiotics I will defer empiric antibiotics to the hospitalist
*Pulse Oximetry
Patient hypoxic: no
*EKG
Interpreted by ED Provider?: Yes
Interpretation: abnormal
Heart Rate: 112
Rate: tachycardiac
Rhythm: sinus tachycardia
[place]: normal axis
Interval: normal interval
QRS Pattern: normal QRS
Ischemia: non-specific ST changes
*Hospice Care Consultant Interpretation
Rate: tachycardiac
Interpretation: abnormal
Rhythm: sinus tachycardia
*Critical Care Note
Total Time (30-74mins, 75-104mins- exclusive of procedures): Not Applicable
Data Reviewed
Review of Other/Old Records Reveals: Progress Notes
Patient Management
Social determinants of health affecting care: Living situation
ED Attending Note
-
Portions of this chart may have been created with voice recognition software.� Occasional wrong word or��sound alike� substitutions may have occurred due to the inherent limitations of voice recognition software.
Discharge Plan
Departure
Patient Disposition: Admit
Date of Disposition: 06/16/24
Time of Disposition: 18:53
Presentation/result/management discussed w/ accepting MD/DO: Hospitalist
Condition: Fair
Discharge Problem:
Fever
Interventions
Interventions:
*Risk Screen - Suicide Last Done: 06/16/24 18:09
*General Assessment Last Done: 06/16/24 18:40
*Neglect/Abuse Screening Last Done: 06/16/24 18:09
*ED- Fall Risk Assessment Last Done: 06/16/24 18:40
*ED COVID-19 Vaccine History Last Done: 06/16/24 18:41
ED- Pulmonary Assessment Last Done: 06/16/24 20:04
ED- Cardiac Assessment Last Done: 06/16/24 20:04
[2024-06-16 16:36] LABS: Lactic Acid 1.2 mmol/L (0.7-2.0)
[2024-06-16 16:37] LABS: ALT (SGPT) 15 U/L (0-35); AST (SGOT) 21 U/L (14-36); Albumin 3.3 g/dl (3.5-5.0); Alkaline Phosphatase 122 U/L (38-126); Blood Urea Nitrogen 19 mg/dl (7-17); Calcium 9.4 mg/dl (8.4-10.2); Carbon Dioxide 29 mmol/L (22-30); Chloride 98 mmol/L (98-107); Glucose 96 mg/dl (70-99); Sodium 134 mmol/L (135-145); Total Bilirubin 0.7 mg/dl (0.2-1.3); Total Protein 6.1 g/dl (6.3-8.2); eGFR > 60.00
[2024-06-16 17:26] LABS: COVID-19 Antigen Negative (Negative)
--- NOTE | 2024-06-16 19:21 | HPS.HSE ---
Family Physician
-
Family Physician: Huber Hale
Chief Complaint
-
tachycardia/hypotension
History of Present Illness
Patient is a 69-year-old female with past medical history significant for dementia, anxiety, paranoid schizophrenia, seizure disorder, B12 deficiency and insomnia who presented to [facility] ED for evaluation of tachycardia/hypotension. Patient was
discharged from the hospital this morning after a 9 day hospitalization for altered mental status. During patients stay she was treated for UTI and was found to have hip fracture which was surgically repaired (patient is post-op day #5). Patient was
discharged to [facility] and was sent back for concerns for sepsis as patient had hypotension and tachycardia upon arrival at [facility]. Review of attending notes from hospitalization noted if patient had another fever to obtain blood
cultures and start antibiotics with ID consult.
Medical History
Past Medical History
Past Medical History: Reports Other
Additional Past Medical History:
dementia
Anxiety, paranoid schizophrenia
Seizure disorder
B12 deficiency
Insomnia
Past Surgical History: Reports Other
Additional Past Surgical History:
peg tube placement
Social History
Unable to obtain full social history at this time due to: Dementia
Family History
Family History: Not pertinent
Allergies / Home Medications
Allergies reflects when Allergies were last updated in [email or web address].
Home Medications with original date entered in [email or web address]
Allergy/Medication List:
Allergies
Allergy/AdvReac Type Severity Reaction Status Date / Time
No Known Allergies Allergy Verified 06/07/24 11:23
Home Medications
melatonin 5 mg tablet 5 mg feeding tube HS Sleep 07/14/21
bisacodyl 10 mg rectal suppository (Dulcolax (bisacodyl)) 10 mg UT DAILY PRN if no results for MOM 09/04/22
therapeutic multivitamin 15 ml feeding tube DAILY Supplement 09/04/22
acetaminophen 160 mg/5 mL oral liquid 592 mg feeding tube Q6HPRN PRN mild pain 04/14/23
fluoxetine 20 mg capsule (Prozac) 20 mg feeding tube DAILY Mental Health/Anxiety 04/14/23
loratadine 10 mg tablet (Claritin) 10 mg feeding tube DAILY Allergies 04/14/23
sennosides 8.6 mg tablet (senna) 8.6 mg feeding tube DAILY Constipation 04/14/23
valproic acid (as sodium salt) 250 mg/5 mL oral solution 250 mg feeding tube HS Seizures 04/14/23
valproic acid (as sodium salt) 250 mg/5 mL oral solution 500 mg feeding tube BID Seizures 04/14/23
aripiprazole 2 mg tablet 1 mg feeding tube DAILY Mental Health/Anxiety 06/07/24
magnesium hydroxide 400 mg/5 mL oral suspension (Milk of Magnesia) 30 ml feeding tube [id number] PRN no bm x3 days 06/07/24
amoxicillin 500 mg-potassium clavulanate 125 mg tablet (Augmentin) 1 tab PO BID #10 tabs 06/14/24
aspirin 81 mg chewable tablet 81 mg feeding tube BID #60 tabs 06/14/24
donepezil 10 mg tablet 10 mg feeding tube HS #30 tabs 06/14/24
sennosides 8.6 mg-docusate sodium 50 mg tablet 1 tab PO BIDPRN PRN constipation #30 tabs 06/14/24
Review of Systems
-
Unable to obtain full review of systems at this time due to: Dementia
Physical Exam
Vital Signs
Vital Signs
Temp Pulse Resp BP Pulse Ox
99.9 F 106 18 111/67 93
06/16/24 18:35 06/16/24 18:06 06/16/24 18:06 06/16/24 18:06 06/16/24 17:45
Physical Exam
General: No Apparent Distress, Appears Chronically Ill, Cachectic and Other (bilateral lower extremities with contractures, bilateral hands with contractures )
HEENT: NormoCephalic, Atraumatic, Arthur Conjunctivae, Nose Appears Normal and Ears Appear Normal
Respiratory: Clear and Non Labored Respirations
Cardiac: S1/S2, Regular Rhythm and Tachycardia; No Murmur
GI: Soft, Non Tender, Non Distended, Normal Bowel Sounds and Peg Tube; No Organomegaly
Rectal: Deferred by Provider
Genito-urinary: Deferred by me
Musculoskeletal: No Clubbing, No Cyanosis, No Edema and Other (bilateral lower extremities with contractures, bilateral hands with contractures; Left hip incision dressing CDI )
Skin: No Rash
Neuro: Awake and Nonfocal/grossly intact
Psych: Apparent Dementia
Laboratory Results
-
06/16/24 16:13
06/16/24 16:13
Laboratory Results
Lactic Acid Cancelled 06/16/24 20:15
Total Bilirubin 0.7 mg/dl (0.2-1.3) 06/16/24 16:13
AST 21 U/L (14-36) 06/16/24 16:13
ALT 15 U/L (0-35) 06/16/24 16:13
Alkaline Phosphatase 122 U/L (38-126) 06/16/24 16:13
Data Reviewed
-
Diagnostic Radiology: Report Reviewed by me (CXR: No acute cardiopulmonary abnormality.)
Medical Tests (Nuc Med, Echo, EKG etc): Report Reviewed by me (EKG: SINUS TACHYCARDIA LOW VOLTAGE QRS)
Lab Data: Labs Reviewed by me (WBC 11.6, Neut 62.3, )
Impression/Plan
-
IMPRESSION/PLAN:
#tachycardia, hypotension
WBC 11.6, Neut 62.3
CXR: No acute cardiopulmonary abnormality.
Covid: negative
Influenza: negative
Blood Cx: pending
EKG: SINUS TACHYCARDIA
LOW VOLTAGE QRS
- Admit to
- Consult ID
- IV antibiotics
- restart nocturnal feedings as ordered
- Wound care
- supportive care
#anxiety, paranoid schizophrenia
#dementia
- continue aripiprazole, donepezil and fluoxetine
#Seizure disorder
- continue valproic acid
#Insomnia
- continue melatonin
#B12 deficiency
Code status: full code
DVT prophylaxis: Lovenox sq
--- NOTE | 2024-06-16 20:27 | W.PN.UPDATE ---
Update Note
Progress Note Update
Patient seen in conjunction with OUTSOLE PARAFFINER. I agree with the findings and physical. I concur with assessment and plan listed otherwise.
Briefly, this is a 69-year-old female with past medical history significant for anxiety, pancytopenia, seizure disorder, s/p PEG, paranoid schizophrenia, iinsomnia was recently admitted to the hospital for change in mental status and found to have a
urinary tract infection as well as sinusitis. She was evaluated by neurology and felt that seizure threshold was reduced secondary to urinary tract infection. Patient initially treated with Rocephin and doxycycline and ultimately was placed on
Augmentin to complete a 5-day course. Patient was discharged to [facility] today. On arrival the they found her to be tachycardic with a rectal temp of 100.3. She was sent back to the hospital.
Notably during that admission patient was found to have a hip fracture s/p ORIF. Will need to follow-up with Ortho in 2 weeks according to the discharge instructions.
Patient cannot provide any significant history as well. She appears to be in her usual mental status. She had a temp of 100.3 in the emergency department. She was otherwise hemodynamically stable with a heart rate of 106. Blood pressure was 1
111/61 with oxygen saturation of 90% on room air. White count was 11 with a hemoglobin 12.1 platelet 413, electrolytes BUN/creatinine were stable.
Repeat chest x-ray is unchanged from prior with chronic bilateral lower lobe opacities consistent with ileus or atelectasis.
Assessment and plan
Fevers - s/p treatment for proteous uti and sinusitis. Wound appears intact.
- admit to med/surg
- blood cultures, urine cultures
- viral panel negative
- start on unasyn for now and monitor fever profile
- ID consultation
s/p ORIF - sutures appears intact
- ostomy/wound consult
Seizures
- continue depakote per prior regimen
CP s/p PEG
- tube feeds per prior regimen
- continue donepezil, aripiprazole and fluoxetine
DVT PPX - d/c aspirin while inpatient, lovenox sq
Code status - full code
--- NOTE | 2024-06-16 23:19 | PTCARENOTE ---
Pt arrived onto floor @2319. Pt AAOx0 and a socket puller to the bed. Pt oriented to room and call marion; will continue to monitor
--- NOTE | 2024-06-16 23:34 | PTCARENOTE ---
Pt arrived onto floor @2319. Pt AAOx0 and a veneer puller to the bed
[2024-06-17] MEDS: DEPAKENE 250 MG TUBE ×2 (00:29→21:11)
[2024-06-17] MEDS: MELATONIN 5 MG TUBE ×2 (00:29→21:10)
[2024-06-17] MEDS: UNASYN IV ×5 (00:29→23:15)
[2024-06-17] MEDS: ARICEPT 10 MG TUBE ×2 (00:29→21:10)
[2024-06-17 07:33] VITALS: BP 112/72
[2024-06-17 07:36] LABS: Hematocrit 35.5 % (37.0-47.0); Hemoglobin 12.2 g/dL (12.0-16.0); Mean Corp Hgb Conc. 34.4 g/dL (33.0-37.0); Mean Corpuscular Hgb 31.8 pg (27.0-31.0); Mean Corpuscular Volume 92.4 fL (81.0-99.0); Mean Platelet Volume 8.9 fL (7.4-10.4); Platelet Count 439 10^3/uL (130-400); Red Blood Cell Count 3.84 10^6/uL (4.20-5.40); Red Cell Dist. Width 13.4 % (11.5-14.5); White Blood Cell Count 10.3 10^3/uL (4.8-10.8)
[2024-06-17] MEDS: DAILY VITAMIN/CENTRUM 15 ML TUBE (07:47)
[2024-06-17] MEDS: DEPAKENE 500 MG TUBE ×2 (07:47→17:03)
[2024-06-17] MEDS: ABILIFY 1 MG TUBE (07:47)
[2024-06-17] MEDS: CLARITIN 10 MG TUBE (07:47)
[2024-06-17] MEDS: PROZAC 20 MG TUBE (07:48)
[2024-06-17] MEDS: SENOKOT 8.6 MG TUBE (07:48)
[2024-06-17 08:22] LABS: Blood Urea Nitrogen 21 mg/dl (7-17); Calcium 9.2 mg/dl (8.4-10.2); Carbon Dioxide 24 mmol/L (22-30); Chloride 100 mmol/L (98-107); Estimated Creatinine Clearance 64 ml/min; Glucose 106 mg/dl (70-99); Sodium 136 mmol/L (135-145); eGFR > 60.00
--- NOTE | 2024-06-17 10:14 | CM ---
Initial assessment completed. Patient is a LTC resident. Patient had recent hospitalization (06/07-06/16). Per previous IA, patient is AAOx1, bedbound, dependent for care/feeding, PEG tube, Dementia. Patient has a Guardian- Estephania Suggs. Patient
PCP Huber Hale, pharmacy [facility]. Referral placed in [facility]. CM will continue to follow for all discharge planning needs.
Plan: Return to [facility] when stable
[2024-06-17 13:01] VITALS: BMI 21.0
--- NOTE | 2024-06-17 14:21 | CON.ID ---
Consultation
-
Date/Time Consultation Requested: 06/16/2024 2322
Date/Time Consultation Performed: 06/17/2024 1421
Requesting Provider: Sayra Junior
Performing Provider: Dr. Cabrales
Reason for Consultation: Leukocytosis
Chief Complaint / Past History
History of Present Illness
Jayashree Jones is a 69-year-old female with a significant past medical history of advanced dementia being evaluated at the request of Sayra Zuniga regarding leukocytosis. History is obtained from chart review alone, as the patient cannot provide
any history given her nonverbal state. The patient recently was admitted to [facility] from 06/07 through 06/15, during which time she was initially assessed for change in mental status, but ultimately found to have a left femoral neck
fracture. She underwent surgery successfully, and was sent back to a local [facility] on 06/15. During her time as an inpatient she was found to have Proteus bacteriuria, and she was sent home on a course of Augmentin.
She returns back to [facility] yesterday as upon return to the [facility] she was found to be tachycardic and to have a low blood pressure. Upon her return to the ER she was found to have a low-grade temperature of 100.3 degrees rectally.
She was restarted on antibiotics, and Infectious Diseases is asked to comment on further microbial management.
At this time, no further history or review of systems is available from the patient.
Past History
Additional Past Medical History:
Dementia
Anxiety/depression
Ambulatory dysfunction
Paranoid schizophrenia
Seizure disorder
B12 deficiency
Additional Past Surgical History:
Left hip ORIF
Allergy History:
No Known Allergies Allergy (Verified 06/07/24 11:23)
Medications Reviewed: Yes
Current Antibiotics:
Unasyn
Social History
Tobacco: Non-Smoker
Alcohol: None
Drug: None
Living: Prison
Employment: Retired
Family History
Family History: Not Pertinent
Review of Systems
Vital Signs
Temp Pulse Resp BP Pulse Ox
98.7 F 110 18 112/72 98
06/17/24 07:33 06/17/24 07:33 06/17/24 07:33 06/17/24 07:33 06/17/24 07:45
Physical Exam
Physical Exam
Constitutional: Comfortable, Chronically Ill, Non-toxic and Cachetic (mild)
Head: Normocephalic
Eyes: Pupils Equal, Pupils Round, No Conjunctival Hemorrhage and Sclera Anicteric
Cardiovascular: S1/S2; Negative S3/S4
Pulmonary: Non Labored
Gastrointestinal: Soft, Non Tender, Non Distended and Normal Bowel Sounds
Extremities: Negative Edema, Cyanosis or Erythema
Skin: Warm and Dry; Negative Rash or Jaundice
Wound: Other (left hip dressing intact)
Neurological: Other (responsice to touch)
Lab / Diagnostic Study Results
06/17/24 07:07
06/17/24 07:07
Abs Immat Gran (auto) 0.1 10^3/uL (0-0.05) H 06/16/24 16:13
Absolute Neuts (auto) 7.2 10^3/uL (1.4-6.5) H 06/16/24 16:13
Absolute Lymphs (auto) 3.0 10^3/uL (1.2-3.4) 06/16/24 16:13
Absolute Monos (auto) 1.1 10^3/uL (0.1-0.6) H 06/16/24 16:13
Absolute Basos (auto) 0.0 10^3/uL (0-0.2) 06/16/24 16:13
Immature Gran % 0.8 % (0-0.5) H 06/16/24 16:13
Neutrophils % 62.3 % (42.2-75.2) 06/16/24 16:13
Lymphocytes % 26.0 % (20.5-51.1) 06/16/24 16:13
Monocytes % 9.8 % (1.7-9.3) H 06/16/24 16:13
Eosinophils % 0.8 % (0-6) 06/16/24 16:13
Basophils % 0.3 % (0-2) 06/16/24 16:13
Lactic Acid Cancelled 06/16/24 20:15
Microbiology Results
Micro:
06/17/24 01:46 MRSA Screen - Pending
Nose
06/16/24 17:50 Influenza Types A & B (ANA) - Final
Nasal Swab Negative for Influenza A & B, NAAT
Negative results must be combined with clinical observations
and patient history.
Nucleic Acid Amplification test (NAAT)performed on the
[employer] ID NOW platform.
06/16/24 16:19 Influenza Types A & B (ANA) - Final
Nasal Swab Test repeatedly invalid.
Nucleic Acid Amplification test (NAAT)performed on the
[employer] ID NOW platform.
06/16/24 17:03 Blood Culture - Pending
Blood/Venous
06/16/24 16:13 Blood Culture - Pending
Blood/Venous
Imaging:
06/17/24 CT chest/abdomen/pelvis: Subcapital fracture of the proximal left femur is again seen. There is significant increase in heterogeneous soft tissue density around the proximal left femur/hip extending into the left gluteal region, most likely
representing a large hematoma. There is markedly limited evaluation of the chest, abdomen and pelvis as a result of lack of contrast. No evidence of pneumonia. Please see full dictation for additional detail.
Assessment / Plan
Reported hypotension; resolved
Leukocytosis; resolved
Recent bacteriuria with Proteus mirabilis
Reported fever
- improved
Dementia
Anxiety/depression
Ambulatory dysfunction
Paranoid schizophrenia
Seizure disorder
B12 deficiency
Recommendations:
Continue with Unasyn for the present.
Await pending cultures to guide further antimicrobial selection and potential de-escalation.
Monitor white count and temperature curve.
--- NOTE | 2024-06-17 14:35 | WOUNDNOTE ---
[facility] RN note: Patient admitted with fever
See H&P for complete history. Lives at [facility].
PMH: Dysphagia-feeding tube, dementia, schizophrenia, seizure disorder, B12 deficiency, insomnia, anxiety and ORIF L hip 06/11/24.
Wound Location and type/assessment: Patient known to service, last seen 06/10/24 for healing stage 3 PI L heel. Using own offloading heel boot. L heel wound much smaller compared to last photo. R heel and sacrum are intact, patient incontinent of
urine. Patient contracted. POOJA Edwards assisted with turning, skin care and changing pad. L hip surgical site dressing intact, no breakthrough drainage. No induration or bruising surrounding incision site.
Appetite: TF Jevity.
Pressure redistribution devices in place: On Accumax, turns with assist. Offloading L heel boot, pillow btw legs.
Plan: Local wound care applied to L heel, offloading heel boot. Updated nurse, care plan and will follow as needed.
Note to case management of equipment requested for discharge: None.
--- NOTE | 2024-06-17 14:46 | W.PN.HOSP.TC ---
Addendum entered and electronically signed by Jose A Wolfe DO 06/18/24 14:10:
[facility]I: Stage III left heel pressure injury, [employer]
Original Note:
Today's Communication/Plan
-
Continue IV Unasyn and follow cultures
As needed analgesics
ID recommendations appreciated
Assessment / Plan
Assessment / Plan
#SIRS positive -- tachycardia, hypotension, fever, leukocytosis
-Suspicion for sepsis though no obvious source of infection; question aspiration events
-Recently completed Augmentin for Proteus UTI; no repeat UA done on arrival
-Chest x-ray on arrival without any acute cardiopulmonary findings
-CT C/A/P severely limited by motion artifact and lack of contrast
-Viral panel negative for flu and COVID; no signs of significant URI symptoms
-Blood and urine cultures obtained on arrival, started on IV Unasyn empirically
-ID consulted, further recommendations appreciated
-Trend CBC and temperature curve, follow cultures on IV Unasyn
#S/P Left ORIF -- POD 6
#Hematoma on CT C/A/P
-CT here showed subcapital fracture of the proximal left femur with signs of large hematoma
-Hemoglobin here is higher than it was near time of surgery, do not suspect active bleeding
-Prescribed full dose aspirin for 4 to 6 weeks for DVT prophylaxis, on Lovenox here
-As needed IV morphine for pain while here
#Paranoid schizophrenia
#Dementia
#Anxiety
-Home regimen includes Seroquel, Prozac, donepezil, VPA
-Limited ability to communicate will no significant agitation
-Continue with current regimen
#Seizure disorder
-Home medications include VPA twice daily and nightly
-No signs of breakthrough seizures here
#Insomnia
-Continue home melatonin
#Vitamin B12 deficiency
-Will check levels with morning labs, to see if she needs more supplement
#Chronic compression fractures
#Osteoporosis
-Chronic compression fractures of T11, L1, L5
-Functional quadriplegia as per history
#S/p PEG
-No signs of dysfunction; currently on Jevity 1.5
DVT prophylaxis: SQ Lovenox
Diet: Tube feeds with Jevity 1.5 via PEG
CODE STATUS: Full code
Anticipated Discharge: > 48 hours
Subjective/Interval History
-
Date of Service: June 17, 2024
Seen and examined the bedside. No acute events overnight. AFVSS this morning, heart rate 110/min
ROS limited by patient's baseline mental deficits in the context of dementia, paranoid schizophrenia
Patient does appear to indicate she has pain in her hip or lower abdomen
Objective Data
-
Labs:
Laboratory Results
06/17/24
07:07
WBC 10.3
Hgb 12.2
Hct 35.5 L
Plt Count 439 H
Sodium 136
Potassium 5.0
Chloride 100
Carbon Dioxide 24
BUN 21 H
Creatinine 0.7
Glucose 106 H
Calcium 9.2
Vital Signs:
Vital Signs
Temp Pulse Resp BP Pulse Ox
98.7 F 110 18 112/72 98
06/17/24 07:33 06/17/24 07:33 06/17/24 07:33 06/17/24 07:33 06/17/24 07:45
Review of Systems
-
History Source: Patient
All other systems: Reviewed and negative
Physical Exam
-
General: Well Developed, No Apparent Distress, Comfortable and Other (Toxic appearance)
HEENT: Normocephalic, Atraumatic, Moist Mucous Membranes and Anicteric
Respiratory: Clear to Auscultation and Non Labored Respirations
Cardiac: Regular Rhythm, S1/S2 and Tachycardic; Negative Murmur, Rub or Gallop
GI: Soft, Nontender, Nondistended, Normal Bowel Sounds and Peg Tube
Musculoskeletal: No Clubbing, No Cyanosis and No Edema
Skin: Warm, Dry and Normal Turgor; Negative Rash
Neuro: AO x 3 and Nonfocal/Grossly Intact
Psych: Calm
Data Reviewed
-
Labs: Labs Reviewed by me and Discussed with Patient
[2024-06-17 15:07] VITALS: BP 112/80
[2024-06-17 15:56] LABS: Urine Albumin 2+ (Neg - Trace); Urine Bilirubin Negative (Negative); Urine Character Cloudy (Clear); Urine Color Yellow; Urine Glucose Negative (Negative); Urine Ketone Negative (Negative); Urine Leukocyte 1+ (Negative); Urine Nitrite Negative (Negative); Urine Occult Blood 1+ (Negative); Urine Urobilinogen Negative (Neg - 1+)
[2024-06-17] MEDS: LOVENOX 40 MG SC (17:03)
[2024-06-17 17:12] LABS: Urine Squamous Cell >30 /LPF (Few)
[2024-06-17 17:13] LABS: Urine Bacteria Few (Negative); Urine Red Blood Cell 0-2 /HPF (0-2)
[2024-06-17 23:38] VITALS: BP 106/64
[2024-06-18] MEDS: UNASYN IV (05:02)
[2024-06-18 07:39] VITALS: BP 131/85
[2024-06-18 08:10] LABS: % Basophils 0.3 % (0-2); % Eosinophils 1.4 % (0-6); % Immature Granulocytes 1.1 % (0-0.5); % Lymphocytes 22.9 % (20.5-51.1); % Monocytes 16.2 % (1.7-9.3); % Neutrophils 58.1 % (42.2-75.2); Absolute Eosinophils 0.1 10^3/uL (0-0.7); Absolute Immature Granulocytes 0.1 10^3/uL (0-0.05); Absolute Lymphocytes 2.2 10^3/uL (1.2-3.4); Absolute Monocytes 1.5 10^3/uL (0.1-0.6); Absolute Neutrophils 5.5 10^3/uL (1.4-6.5); Hematocrit 34.7 % (37.0-47.0); Hemoglobin 11.5 g/dL (12.0-16.0); Mean Corp Hgb Conc. 33.1 g/dL (33.0-37.0); Mean Corpuscular Hgb 31.3 pg (27.0-31.0); Mean Corpuscular Volume 94.3 fL (81.0-99.0); Mean Platelet Volume 8.8 fL (7.4-10.4); Nucleated Red Blood Cells % 0 %; Platelet Count 456 10^3/uL (130-400); Red Blood Cell Count 3.68 10^6/uL (4.20-5.40); Red Cell Dist. Width 13.7 % (11.5-14.5); White Blood Cell Count 9.5 10^3/uL (4.8-10.8)
--- NOTE | 2024-06-18 08:33 | W.PN.ID1 ---
Date of Service
Date of Service: June 18, 2024
Today's Communication
Discontinue antibiotics and observe.
Assessment / Plan
Reported hypotension; resolved
Leukocytosis; resolved
Recent bacteriuria with Proteus mirabilis
Reported fever
- resolved
Recent (L) displaced femoral neck fracture
- s/p (L) hip resection arthroplasty, femoral head resection (girdlestone procedure); 06/11/2024
Dementia
Anxiety/depression
Ambulatory dysfunction
Paranoid schizophrenia
Seizure disorder
B12 deficiency
Recommendations:
Cultures negative thus far. Leukocytosis has normalized, and patient without left shift.
Urinalysis without nitrates, no significant pyuria. Culture pending, although needs to be assessed in the context of contamination (squamous epithelial cells>30)
D/C further abx and observe.
Monitor white count and temperature curve.
Chief Complaint
-: Fever and Leukocytosis
Subjective / Review of Systems
Patient seen. No reported issues overnight.
Review of Systems: No Fever
Vital Signs / Physical Exam
Vital Signs
Vital Signs
Temp Pulse Resp BP Pulse Ox
98.3 F 58 18 131/85 93
06/18/24 07:39 06/18/24 07:39 06/18/24 07:39 06/18/24 07:39 06/18/24 07:39
Physical Exam
Constitutional: Comfortable, Chronically Ill and Non-toxic
Eyes: Sclera Anicteric
Pulmonary: Non Labored; Negative Wheezes or Rales
Gastrointestinal: Soft, Non Distended, Normal Bowel Sounds and Other (Peg in place)
Extremities: Edema (trace); Negative Erythema
Wound: Other (left hip dressing intact; no strikethrough)
Neurological: Awake and Other (Nonverbal)
Psychological: Calm
Objective Data
Lab Data
Lab Results
06/18/24 06:37
Estimated Creat Clear 64 ml/min 06/17/24 07:07
Lactic Acid Cancelled 06/16/24 20:15
Total Bilirubin 0.7 mg/dl (0.2-1.3) 06/16/24 16:13
AST 21 U/L (14-36) 06/16/24 16:13
ALT 15 U/L (0-35) 06/16/24 16:13
Alkaline Phosphatase 122 U/L (38-126) 06/16/24 16:13
Most recent labs reviewed.
Micro Results:
06/16/24 17:03 Blood Culture - Preliminary
Blood/Venous No Growth in 24 hours- Final report to follow
06/16/24 16:13 Blood Culture - Preliminary
Blood/Venous No Growth in 24 hours- Final report to follow
06/17/24 15:26 Urine Culture - Pending
Urine
06/17/24 01:46 MRSA Screen - Pending
Nose
06/16/24 17:50 Influenza Types A & B (ANA) - Final
Nasal Swab Negative for Influenza A & B, NAAT
Negative results must be combined with clinical observations
and patient history.
Nucleic Acid Amplification test (NAAT)performed on the
[employer] ID NOW platform.
06/16/24 16:19 Influenza Types A & B (ANA) - Final
Nasal Swab Test repeatedly invalid.
Nucleic Acid Amplification test (NAAT)performed on the
[employer] ID NOW platform.
Imaging:
06/17/24 CT chest/abdomen/pelvis: Subcapital fracture of the proximal left femur is again seen. There is significant increase in heterogeneous soft tissue density around the proximal left femur/hip extending into the left gluteal region, most likely
representing a large hematoma. There is markedly limited evaluation of the chest, abdomen and pelvis as a result of lack of contrast. No evidence of pneumonia. Please see full dictation for additional detail.
[2024-06-18 08:48] LABS: Blood Urea Nitrogen 28 mg/dl (7-17); Calcium 8.7 mg/dl (8.4-10.2); Carbon Dioxide 26 mmol/L (22-30); Chloride 101 mmol/L (98-107); Estimated Creatinine Clearance 56 ml/min; Glucose 96 mg/dl (70-99); Sodium 138 mmol/L (135-145); eGFR > 60.00
[2024-06-18] MEDS: DAILY VITAMIN/CENTRUM 15 ML TUBE (09:18)
[2024-06-18] MEDS: DEPAKENE 500 MG TUBE ×2 (09:18→16:28)
[2024-06-18] MEDS: CLARITIN 10 MG TUBE (09:18)
[2024-06-18] MEDS: SENOKOT 8.6 MG TUBE (09:18)
[2024-06-18] MEDS: PROZAC 20 MG TUBE (09:18)
[2024-06-18] MEDS: ABILIFY 1 MG TUBE (09:18)
--- NOTE | 2024-06-18 11:18 | W.PN.HOSP.TC ---
Addendum entered and electronically signed by Jose A Wolfe DO 06/18/24 11:23:
ID stop Unasyn, will continue to observe antibiotics for recurrence of fever or leukocytosis.
Original Note:
Today's Communication/Plan
-
Continue IV Unasyn and follow cultures
Further ID recommendations appreciated
Assessment / Plan
Assessment / Plan
#SIRS positive -- tachycardia, hypotension, fever, leukocytosis
-Possibly related to infection at site of PEG tube versus aspiration versus other occult infection
-Recently completed Augmentin for Proteus UTI; no repeat UA done on arrival
-Chest x-ray on arrival without any acute cardiopulmonary findings
-CT C/A/P severely limited by motion artifact and lack of contrast
-Viral panel negative for flu and COVID; no signs of significant URI symptoms
-Blood and urine cultures obtained on arrival, started on IV Unasyn empirically
-ID consulted, further recommendations appreciated
-Trend CBC and temperature curve, follow cultures on IV Unasyn
#S/P Left ORIF -- POD 6
#Hematoma on CT C/A/P
-CT here showed subcapital fracture of the proximal left femur with signs of large hematoma
-Hemoglobin here is higher than it was near time of surgery, do not suspect active bleeding
-Prescribed full dose aspirin for 4 to 6 weeks for DVT prophylaxis, on Lovenox here
-As needed IV morphine for pain while here
#Paranoid schizophrenia
#Dementia
#Anxiety
-Home regimen includes Seroquel, Prozac, donepezil, VPA
-Limited ability to communicate will no significant agitation
-Continue with current regimen
#Seizure disorder
-Home medications include VPA twice daily and nightly
-No signs of breakthrough seizures here
#Insomnia
-Continue home melatonin
#Vitamin B12 deficiency
-Will check levels with morning labs, to see if she needs more supplement
#Chronic compression fractures
#Osteoporosis
-Chronic compression fractures of T11, L1, L5
-Functional quadriplegia as per history
#S/p PEG
-No signs of dysfunction; currently on Jevity 1.5
-Concern for infection with erythematous surrounding skin
DVT prophylaxis: SQ Lovenox
Diet: Tube feeds with Jevity 1.5 via PEG
CODE STATUS: Full code
Anticipated Discharge: > 48 hours
Subjective/Interval History
-
Date of Service: June 18, 2024
Seen and examined at the bedside. No acute events reported overnight. AFVSS this morning
No fevers or leukocytosis today. Per nursing, when changing PEG bandage, was noted to have foul malodorous purulent discharge.
ROS limited by her baseline mental status
Objective Data
-
Labs:
Laboratory Results
06/18/24
06:37
WBC 9.5
Hgb 11.5 L
Hct 34.7 L
Plt Count 456 H
Sodium 138
Potassium 5.0
Chloride 101
Carbon Dioxide 26
BUN 28 H
Creatinine 0.8
Glucose 96
Calcium 8.7
Vital Signs:
Vital Signs
Temp Pulse Resp BP Pulse Ox
98.3 F 58 18 131/85 93
06/18/24 07:39 06/18/24 07:39 06/18/24 07:39 06/18/24 07:39 06/18/24 07:39
I&O
06/17/24 06/18/24 06/19/24
06:59 06:59 06:59
Intake Total 240 / 240
Balance 240 / 240
Review of Systems
-
Unable to obtain full review of systems at this time due to: Dementia
Physical Exam
-
General: Well Developed, No Apparent Distress and Comfortable
HEENT: Normocephalic, Atraumatic, Moist Mucous Membranes and Anicteric
Respiratory: Clear to Auscultation and Non Labored Respirations
Cardiac: Regular Rhythm and S1/S2; Negative Murmur, Rub or Gallop
GI: Soft, Nontender, Nondistended, Normal Bowel Sounds and Peg Tube (Erythema of surrounding skin, no purulence on my exam)
Musculoskeletal: No Clubbing, No Cyanosis and No Edema
Skin: Warm and Dry; Negative Rash
Neuro: Awake and Nonfocal/Grossly Intact
Psych: Calm
Data Reviewed
-
Labs: Labs Reviewed by me and Discussed with Physician (Infectious disease)
--- NOTE | 2024-06-18 13:00 | PN.CDI ---
CDI
- -
CDI:
Physician Documentation Request
Admit Date: 06/16/24 20:09
Dear Doctor Aiden,
Patient admitted with fever.
06/17 Nursing skin assessment by LA, 'Stage 3 left heel pressure injury, POA.'
Physician documentation of the type and location of wounds is required for compliant documentation. Based on the above clinical findings and your assessment, please provide the following in your progress note:
Type (etiology) of ulcer/wound:
- Pressure (decubitus) ulcer
- Other
- Unable to determine
For a pressure ulcer, please also include the stage* of the ulcer:
- Stage 1 - Skin intact, non-blanchable redness
- Stage 2 - Partial thickness loss of dermis, includes intact or open blister
- Stage 3 - Full thickness tissue not including bone, tendon or muscle
- Stage 4 - Full thickness tissue loss, including exposed bone, tendon or muscle
- Unstageable - Full thickness loss in which the base of the ulcer is covered by slough (yellow, corado, kern, green or brown) and/or eschar (corado, brown or black) in the wound bed.
- Unable to determine
Use of terms such as suspected, likely, concern for, or probable (associated with a specific diagnosis that is being evaluated, monitored, or treated as if it exists) are acceptable and can be coded in the inpatient setting, when documented at the
time of discharge.
Thank you,
Edita MONREAL,RN,CCDS
CDI Specialist
Available via [facility] text
Please use your independent medical judgment in providing your response.
*Source: National Pressure Ulcer Advisory Panel (NPUAP)
[2024-06-18 14:58] VITALS: BP 120/76
[2024-06-18] MEDS: LOVENOX 40 MG SC (16:29)
[2024-06-18] MEDS: MELATONIN 5 MG TUBE (21:02)
[2024-06-18] MEDS: DEPAKENE 250 MG TUBE (21:02)
[2024-06-18] MEDS: ARICEPT 10 MG TUBE (21:02)
[2024-06-18 23:27] VITALS: BP 98/63
[2024-06-19] MEDS: MORPHINE SULFATE 1 MG IV ×2 (06:00→15:55)
[2024-06-19 07:30] VITALS: BP 101/63
[2024-06-19 08:39] LABS: % Basophils 0.6 % (0-2); % Eosinophils 2.1 % (0-6); % Lymphocytes 28.2 % (20.5-51.1); % Monocytes 12.4 % (1.7-9.3); % Neutrophils 55.7 % (42.2-75.2); Absolute Basophils 0.1 10^3/uL (0-0.2); Absolute Eosinophils 0.2 10^3/uL (0-0.7); Absolute Immature Granulocytes 0.1 10^3/uL (0-0.05); Absolute Lymphocytes 2.3 10^3/uL (1.2-3.4); Absolute Neutrophils 4.5 10^3/uL (1.4-6.5); Hematocrit 33.2 % (37.0-47.0); Mean Corp Hgb Conc. 33.1 g/dL (33.0-37.0); Mean Corpuscular Hgb 31.4 pg (27.0-31.0); Mean Corpuscular Volume 94.9 fL (81.0-99.0); Mean Platelet Volume 8.8 fL (7.4-10.4); Nucleated Red Blood Cells % 0 %; Platelet Count 457 10^3/uL (130-400); Red Cell Dist. Width 13.9 % (11.5-14.5); White Blood Cell Count 8.2 10^3/uL (4.8-10.8)
[2024-06-19] MEDS: DEPAKENE 500 MG TUBE ×2 (09:01→15:56)
[2024-06-19] MEDS: DAILY VITAMIN/CENTRUM 15 ML TUBE (09:02)
[2024-06-19] MEDS: CLARITIN 10 MG TUBE (09:04)
[2024-06-19] MEDS: SENOKOT 8.6 MG TUBE (09:04)
[2024-06-19] MEDS: ABILIFY 1 MG TUBE (09:04)
[2024-06-19] MEDS: PROZAC 20 MG TUBE (09:05)
[2024-06-19] MEDS: TYLENOL SUSPENSION 592 MG TUBE ×2 (09:06→21:41)
--- NOTE | 2024-06-19 09:16 | W.PN.ID1 ---
Date of Service
Date of Service: June 19, 2024
Today's Communication
Monitor closely off antibiotics.
Assessment / Plan
Reported hypotension; resolved
Leukocytosis; resolved
Recent bacteriuria with Proteus mirabilis
Reported fever
- resolved
Recent (L) displaced femoral neck fracture
- s/p (L) hip resection arthroplasty, femoral head resection (girdlestone procedure); 06/11/2024
Dementia
Anxiety/depression
Ambulatory dysfunction
Paranoid schizophrenia
Seizure disorder
B12 deficiency
Recommendations:
Cultures negative. WBC normal, no left shift.
Urinalysis without nitrates, no significant pyuria. Urine culture with contamination (squamous epithelial cells>30)
Observe off antibiotics.
Monitor white count and temperature curve.
Chief Complaint
-: Fever and Leukocytosis
Subjective / Review of Systems
Chart reviewed. No significant events overnight.
Review of Systems: No Fever
Vital Signs / Physical Exam
Vital Signs
Vital Signs
Temp Pulse Resp BP Pulse Ox
97.1 F 108 20 101/63 95
06/19/24 07:30 06/19/24 07:30 06/19/24 07:30 06/19/24 07:30 06/19/24 07:30
Physical Exam
Constitutional: Comfortable, Chronically Ill and Non-toxic
Eyes: Sclera Anicteric
Pulmonary: Non Labored; Negative Wheezes or Rales
Gastrointestinal: Soft, Non Distended, Normal Bowel Sounds and Other (Peg in place)
Extremities: Edema (trace); Negative Erythema
Wound: Other (left hip dressing intact; no strikethrough)
Neurological: Awake and Other (Nonverbal)
Psychological: Calm
Objective Data
Lab Data
Lab Results
06/19/24 07:16
Estimated Creat Clear 56 ml/min 06/18/24 06:37
Lactic Acid Cancelled 06/16/24 20:15
Total Bilirubin 0.7 mg/dl (0.2-1.3) 06/16/24 16:13
AST 21 U/L (14-36) 06/16/24 16:13
ALT 15 U/L (0-35) 06/16/24 16:13
Alkaline Phosphatase 122 U/L (38-126) 06/16/24 16:13
Most recent labs reviewed.
Micro Results:
06/16/24 17:03 Blood Culture - Preliminary
Blood/Venous No Growth in 48 hours- Final report to follow
06/16/24 16:13 Blood Culture - Preliminary
Blood/Venous No Growth in 48 hours- Final report to follow
06/17/24 15:26 Urine Culture - Final
Urine
06/17/24 01:46 MRSA Screen - Final
Nose No Methicillin Resistant Staphylococcus aureus isolated.
06/16/24 17:50 Influenza Types A & B (ANA) - Final
Nasal Swab Negative for Influenza A & B, NAAT
Negative results must be combined with clinical observations
and patient history.
Nucleic Acid Amplification test (NAAT)performed on the
[employer] ID NOW platform.
06/16/24 16:19 Influenza Types A & B (ANA) - Final
Nasal Swab Test repeatedly invalid.
Nucleic Acid Amplification test (NAAT)performed on the
[employer] ID NOW platform.
Imaging:
06/17/24 CT chest/abdomen/pelvis: Subcapital fracture of the proximal left femur is again seen. There is significant increase in heterogeneous soft tissue density around the proximal left femur/hip extending into the left gluteal region, most likely
representing a large hematoma. There is markedly limited evaluation of the chest, abdomen and pelvis as a result of lack of contrast. No evidence of pneumonia. Please see full dictation for additional detail.
CT Scan: Image Reviewed and Report Reviewed
[2024-06-19] MEDS: LR 1000 IV ×2 (09:39→19:47)
--- NOTE | 2024-06-19 11:04 | W.PN.HOSP.TC ---
Today's Communication/Plan
-
Monitor off of antibiotics
IV fluids
Trend CBC and temperature curve
Assessment / Plan
Assessment / Plan
#SIRS positive -- tachycardia, hypotension, fever, leukocytosis
-Possibly related to infection at site of PEG tube versus aspiration versus other occult infection
-Recently completed Augmentin for Proteus UTI; repeat UA here was fairly bland with few bacteria
-CXR without any acute findings, CT C/A/P was limited by artifact but no acute finding seen
-Viral panel negative for flu and COVID; no signs of significant URI symptoms
-Was on empiric IV Unasyn which has since been discontinued; cultures NGTD
-ID consulted and recommended monitoring off of antibiotics
-Trend CBC and temperature curve off of antibiotic
#Sinus tachycardia
-Has had persistent tachycardia here with heart rate in the low 100s and most times
-ECG this morning showing sinus tachycardia; suspect volume depletion
-Will start IV fluids and monitor heart rate
#S/P Left ORIF -- POD 6
#Hematoma on CT C/A/P
-CT here showed subcapital fracture of the proximal left femur with signs of large hematoma
-Hemoglobin here is higher than it was near time of surgery, do not suspect active bleeding
-Prescribed full dose aspirin for 4 to 6 weeks for DVT prophylaxis, on Lovenox here
-As needed IV morphine for pain while here
#Paranoid schizophrenia
#Dementia
#Anxiety
-Home regimen includes Seroquel, Prozac, donepezil, VPA
-Limited ability to communicate will no significant agitation
-Continue with current regimen
#Seizure disorder
-Home medications include VPA twice daily and nightly
-No signs of breakthrough seizures here
#Insomnia
-Continue home melatonin
#Vitamin B12 deficiency
-Will check levels with morning labs, to see if she needs more supplement
#Chronic compression fractures
#Osteoporosis
-Chronic compression fractures of T11, L1, L5
-Functional quadriplegia as per history
#S/p PEG
-No signs of dysfunction; currently on Jevity 1.5
-Concern for infection with erythematous surrounding skin
DVT prophylaxis: SQ Lovenox
Diet: Tube feeds with Jevity 1.5 via PEG
CODE STATUS: Full code
Anticipated Discharge: 24 - 48 hours
Subjective/Interval History
-
Date of Service: June 19, 2024
Seen and examined at the bedside. No acute events reported overnight. AFVSS this morning with heart rate 108/min
Remains afebrile and without leukocytosis off of antibiotics. ECG this morning shows sinus tachycardia
ROS limited by dementia and baseline mental status
Objective Data
-
Labs:
Laboratory Results
06/19/24 06/19/24
07:16 10:54
WBC 8.2
Hgb 11.0 L
Hct 33.2 L
Plt Count 457 H
Sodium Pending
Potassium Pending
Chloride Pending
Carbon Dioxide Pending
BUN Pending
Creatinine Pending
Glucose Pending
Calcium Pending
Vital Signs:
Vital Signs
Temp Pulse Resp BP Pulse Ox
97.1 F 108 20 101/63 95
06/19/24 07:30 06/19/24 07:30 06/19/24 07:30 06/19/24 07:30 06/19/24 07:30
I&O
06/18/24 06/19/24 06/20/24
06:59 06:59 06:59
Intake Total 240 / 240 1250 / 1250
Balance 240 / 240 1250 / 1250
Review of Systems
-
Unable to obtain full review of systems at this time due to: Dementia
Physical Exam
-
General: Well Developed, Well Nourished, No Apparent Distress and Appears Chronically Ill
HEENT: Normocephalic, Atraumatic, Moist Mucous Membranes and Anicteric; Negative Good Dentition
Respiratory: Clear to Auscultation and Non Labored Respirations
Cardiac: Regular Rhythm, S1/S2 and Tachycardic; Negative Murmur, Rub or Gallop
GI: Soft, Nontender, Nondistended, Normal Bowel Sounds and Peg Tube
Musculoskeletal: No Clubbing, No Cyanosis and No Edema
Skin: Warm and Dry; Negative Rash
Neuro: Awake, Alert and Nonfocal/Grossly Intact; Negative Tremors
Psych: Calm
Data Reviewed
-
Labs: Labs Reviewed by me and Discussed with Patient
--- NOTE | 2024-06-19 12:07 | CM ---
Chart reviewed. Plan is for patient to return to [facility] when stable
Patient will need ambulance transport at d/c
[facility]
Report: [phone]
[2024-06-19 12:31] LABS: Blood Urea Nitrogen 33 mg/dl (7-17); Calcium 9.2 mg/dl (8.4-10.2); Carbon Dioxide 28 mmol/L (22-30); Chloride 103 mmol/L (98-107); Estimated Creatinine Clearance 64 ml/min; Glucose 104 mg/dl (70-99); Sodium 138 mmol/L (135-145); eGFR > 60.00
[2024-06-19 15:34] VITALS: BP 102/65
[2024-06-19] MEDS: LOVENOX 40 MG SC (15:56)
[2024-06-19] MEDS: DEPAKENE 250 MG TUBE (21:45)
[2024-06-19] MEDS: ARICEPT 10 MG TUBE (21:45)
[2024-06-19] MEDS: MELATONIN 5 MG TUBE (21:45)
[2024-06-19 23:15] VITALS: BP 104/60
[2024-06-20] MEDS: LR 1000 IV (05:39)
[2024-06-20] MEDS: MORPHINE SULFATE 1 MG IV (05:41)
[2024-06-20 07:25] VITALS: BP 112/67
[2024-06-20] MEDS: DAILY VITAMIN/CENTRUM 15 ML TUBE (09:00)
[2024-06-20] MEDS: PROZAC 20 MG TUBE (09:01)
[2024-06-20] MEDS: ABILIFY 1 MG TUBE (09:01)
[2024-06-20] MEDS: DEPAKENE 500 MG TUBE (09:01)
[2024-06-20] MEDS: CLARITIN 10 MG TUBE (09:01)
[2024-06-20] MEDS: SENOKOT 8.6 MG TUBE (09:02)
[2024-06-20 09:06] LABS: % Basophils 0.5 % (0-2); % Immature Granulocytes 0.8 % (0-0.5); % Lymphocytes 22.2 % (20.5-51.1); % Monocytes 8.7 % (1.7-9.3); % Neutrophils 65.8 % (42.2-75.2); Absolute Basophils 0.1 10^3/uL (0-0.2); Absolute Eosinophils 0.2 10^3/uL (0-0.7); Absolute Immature Granulocytes 0.1 10^3/uL (0-0.05); Absolute Lymphocytes 2.4 10^3/uL (1.2-3.4); Absolute Monocytes 0.9 10^3/uL (0.1-0.6); Hematocrit 31.1 % (37.0-47.0); Hemoglobin 10.3 g/dL (12.0-16.0); Mean Corp Hgb Conc. 33.1 g/dL (33.0-37.0); Mean Corpuscular Hgb 31.8 pg (27.0-31.0); Mean Platelet Volume 8.4 fL (7.4-10.4); Nucleated Red Blood Cells % 0 %; Platelet Count 448 10^3/uL (130-400); Red Blood Cell Count 3.24 10^6/uL (4.20-5.40); Red Cell Dist. Width 13.6 % (11.5-14.5); White Blood Cell Count 10.6 10^3/uL (4.8-10.8)
--- NOTE | 2024-06-20 09:49 | W.PN.HOSP.TC ---
Today's Communication/Plan
-
Continue IV fluids while here
Discharge back to facility
Outpatient follow-up with palliative care
Assessment / Plan
Assessment / Plan
#SIRS positive -- tachycardia, hypotension, fever, leukocytosis
-Suspect this was multifactorial with dehydration causing tachycardia and hypotension, possible aspiration event as well
-Recently completed Augmentin for Proteus UTI; repeat UA here was fairly bland with few bacteria
-CXR without any acute findings, CT C/A/P was limited by artifact but no acute finding seen
-Viral panel negative for flu and COVID; no signs of significant URI symptoms
-Was on empiric IV Unasyn which has since been discontinued; cultures NGTD
-ID consulted and recommended monitoring off of antibiotics
-Trend CBC and temperature curve off of antibiotic
#Sinus tachycardia
-Has had persistent tachycardia here with heart rate in the low 100s and most times
-ECG this morning showing sinus tachycardia; suspect volume depletion
-Will start IV fluids and monitor heart rate
-As of morning 06/20 heart rate in the 90s
#S/P Left ORIF -- POD 6
#Hematoma on CT C/A/P
-CT here showed subcapital fracture of the proximal left femur with signs of large hematoma
-Hemoglobin here is higher than it was near time of surgery, do not suspect active bleeding
-Prescribed full dose aspirin for 4 to 6 weeks for DVT prophylaxis, on Lovenox here
-As needed IV morphine for pain while here
#Paranoid schizophrenia
#Dementia
#Anxiety
-Home regimen includes Seroquel, Prozac, donepezil, VPA
-Limited ability to communicate will no significant agitation
-Continue with current regimen
#Seizure disorder
-Home medications include VPA twice daily and nightly
-No signs of breakthrough seizures here
#Insomnia
-Continue home melatonin
#Vitamin B12 deficiency
-Will check levels with morning labs, to see if she needs more supplement
#Chronic compression fractures
#Osteoporosis
-Chronic compression fractures of T11, L1, L5
-Functional quadriplegia as per history
#S/p PEG
-No signs of dysfunction; currently on Jevity 1.5
-Concern for infection with erythematous surrounding skin
DVT prophylaxis: SQ Lovenox
Diet: Tube feeds with Jevity 1.5 via PEG
CODE STATUS: Full code
Anticipated Discharge: Today
Subjective/Interval History
-
Date of Service: June 20, 2024
Seen and examined at the bedside. No acute events reported overnight. AFVSS this morning with heart rate WNL
White cell count remains normal, no fever since early in hospital stay
ROS limited by her dementia
Objective Data
-
Labs:
Laboratory Results
06/20/24
08:58
WBC 10.6
Hgb 10.3 L
Hct 31.1 L
Plt Count 448 H
Vital Signs:
Vital Signs
Temp Pulse Resp BP Pulse Ox
97.6 F 104 20 112/67 96
06/20/24 07:25 06/20/24 07:25 06/20/24 07:25 06/20/24 07:25 06/20/24 07:25
I&O
06/19/24 06/20/24 06/21/24
06:59 06:59 06:59
Intake Total 1250 / 1250 3170 / 3170
Balance 1250 / 1250 3170 / 3170
Review of Systems
-
Unable to obtain full review of systems at this time due to: Dementia
Physical Exam
-
General: Well Developed, No Apparent Distress and Comfortable
HEENT: Normocephalic, Atraumatic, Moist Mucous Membranes and Anicteric
Respiratory: Clear to Auscultation and Non Labored Respirations
Cardiac: Regular Rhythm and S1/S2; Negative Murmur, Rub or Gallop
GI: Soft, Nontender, Nondistended, Normal Bowel Sounds and Peg Tube
Musculoskeletal: No Cyanosis and No Edema
Skin: Warm, Dry and Normal Turgor; Negative Rash
Neuro: Awake and Nonfocal/Grossly Intact
Psych: Calm
Data Reviewed
-
Labs: Labs Reviewed by me, Discussed with Physician (Infectious disease) and Discussed with Nurse
--- NOTE | 2024-06-20 10:37 | CM ---
Per hospitalist, patient is stable for d/c today back to [facility].
CM informed patient's guardian, Estephania, who was agreeable to d/c. Requested copy of d/c paperwork to be faxed to her at [phone]
IMM verbally reviewed w/ guardian, no copy was requested. Copy placed on chart
Patient will transport via ambulance, forms provided to community development officer to arrange.
[facility]
Report: [phone]

Plan: Return to [facility] today
--- NOTE | 2024-06-20 11:21 | W.PN.ID1 ---
Date of Service
Date of Service: June 20, 2024
Today's Communication
Continue off abx.
Assessment / Plan
Reported hypotension
- resolved
Leukocytosis
- resolved
Recent bacteriuria with Proteus mirabilis
Reported fever
- resolved
Recent (L) displaced femoral neck fracture
- s/p (L) hip resection arthroplasty, femoral head resection (girdlestone procedure); 06/11/2024
Dementia
Anxiety/depression
Ambulatory dysfunction
Paranoid schizophrenia
Seizure disorder
B12 deficiency
Recommendations:
Cultures negative. WBC normal, no left shift.
Urinalysis without nitrates, no significant pyuria. Urine culture with contamination (squamous epithelial cells>30)
Continue off antibiotics.
Pt for D/C today.
Agree with noted OP eval for Palliative Care; appears palliative care/hospice appropriate.
Chief Complaint
-: Fever and Leukocytosis
Subjective / Review of Systems
Review of Systems: No Fever
Vital Signs / Physical Exam
Vital Signs
Vital Signs
Temp Pulse Resp BP Pulse Ox
97.6 F 104 20 112/67 96
06/20/24 07:25 06/20/24 07:25 06/20/24 07:25 06/20/24 07:25 06/20/24 07:25
Physical Exam
Constitutional: Comfortable, Chronically Ill and Non-toxic
Cardiovascular: S1/S2; Negative S3/S4
Pulmonary: Non Labored; Negative Wheezes or Rales
Gastrointestinal: Soft, Non Distended, Normal Bowel Sounds and Other (Peg in place)
Extremities: Edema (trace); Negative Erythema
Wound: Other (left hip dressing intact; no strikethrough)
Neurological: Other (Nonverbal)
Psychological: Calm
Objective Data
Lab Data
Lab Results
06/20/24 08:58
06/19/24 10:54
Estimated Creat Clear 64 ml/min 06/19/24 10:54
Lactic Acid Cancelled 06/16/24 20:15
Total Bilirubin 0.7 mg/dl (0.2-1.3) 06/16/24 16:13
AST 21 U/L (14-36) 06/16/24 16:13
ALT 15 U/L (0-35) 06/16/24 16:13
Alkaline Phosphatase 122 U/L (38-126) 06/16/24 16:13
Most recent labs reviewed.
Micro Results:
06/16/24 17:03 Blood Culture - Preliminary
Blood/Venous No Growth in 72 hours- Final report to follow
06/16/24 16:13 Blood Culture - Preliminary
Blood/Venous No Growth in 72 hours- Final report to follow
06/17/24 15:26 Urine Culture - Final
Urine
06/17/24 01:46 MRSA Screen - Final
Nose No Methicillin Resistant Staphylococcus aureus isolated.
06/16/24 17:50 Influenza Types A & B (ANA) - Final
Nasal Swab Negative for Influenza A & B, NAAT
Negative results must be combined with clinical observations
and patient history.
Nucleic Acid Amplification test (NAAT)performed on the
[employer] [employer] platform.
06/16/24 16:19 Influenza Types A & B (ANA) - Final
Nasal Swab Test repeatedly invalid.
Nucleic Acid Amplification test (NAAT)performed on the
[employer] platform.
Imaging:
06/17/24 CT chest/abdomen/pelvis: Subcapital fracture of the proximal left femur is again seen. There is significant increase in heterogeneous soft tissue density around the proximal left femur/hip extending into the left gluteal region, most likely
representing a large hematoma. There is markedly limited evaluation of the chest, abdomen and pelvis as a result of lack of contrast. No evidence of pneumonia. Please see full dictation for additional detail.
Care Review
Plan reviewed with: Physician (Hospitalist)
--- NOTE | 2024-06-20 12:36 | W.DCSUMMARY ---
Discharge Summary
Discharge Data
Date of Admission: 06/16/24
Date of Discharge: 06/20/24
Total time spent discharging patient (in min): 36
-
Pending Results: No
Hospital Course
Discharging Physician :�Jose A Wolfe DO
Disposition :���� Long-term care facility
Principal Discharge diagnosis :�
SIRS positive (fever, tachycardia, hypotension, leukocytosis)
Suspected aspiration pneumonitis
Dehydration
Chronic Discharge diagnosis :�
Schizophrenia
Dementia
Seizure disorder
Compression fractures (T11, L1, L5)
S/p left ORIF
Chronic dysphagia s/p PEG
Hospital Course :�
69-year-old female that presented to the hospital shortly after being discharged with fever, tachycardia, hypotension. Found to have mild leukocytosis on arrival. Blood and urine cultures were obtained and she was started empirically on IV Unasyn
regimen. Blood cultures ultimately with NGTD as were urine cultures. CT C/A/P was limited by motion artifact however did not show any obvious evidence of acute infections. Was evaluated by infectious disease who recommended observing off of
antibiotics upon prelim negative culture data. Stable without fever or leukocytosis on multiple days off of antibiotics. Was treated with IV fluids for presumed dehydration which may have contributed to her hypotension and tachycardia. Suspect
underlying aspiration, possibly associated with PEG tube feeding. Patient tolerated PEG tube feeds well throughout her hospitalization. On 06/20 was determined stable for discharge back to long-term care facility without antibiotics.
Consultants :
Infectious disease: Edgardo Cabrales DO
Important imaging findings :�
CT C/A/P without IV contrast (06/17/24)
IMPRESSION: Subcapital fracture of the proximal left femur again seen. Significant increase heterogeneous soft tissue density about the proximal left femur/hip extending into the left gluteal region most likely representing a large hematoma.
Markedly limited evaluation of the chest, abdomen and pelvis in the setting of sepsis as a result of several factors including lack of intravenous contrast, lack of oral contrast, relative paucity of intra-abdominal/pelvic fat and marked beam
hardening artifact from the patient's bilateral upper extremities. Bilateral dependent subsegmental atelectasis overall slightly decreased. No findings to suggest pneumonia. Essentially stable tiny right middle lobe nodules, previously sent to
[facility]. No gross focal inflammatory/infectious process throughout the soft tissues of the abdomen and pelvis, evaluation markedly limited.
CTA chest PE protocol (06/13/2024)
IMPRESSION: No findings to suggest central pulmonary embolism. Bilateral lower lobe opacification most likely representing a tiny bilateral ileus cannot be entirely excluded. Mild to moderate partial T6 vertebral compression fracture,
age-indeterminate, most likely remote.
Procedure findings :� N/A
Follow-up :
PCP in 1 to 2 weeks after discharge
Palliative care referral provided
CBC and BMP 1 week after discharge
Discharge Plan
-
Patient Disposition: Shelter/SNF
Discharge Diagnosis/Procedures: SIRS - fever, leukocytosis, tachycardia, hypotension
Dehydration
Suspected aspiration event
Chronic schizophrenia
Dementia
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
Condition: Fair
Diet: Other diet
Additional Diets: Tube feeds as previously prescribed
Activity: As tolerated and Other activity
Additional Activity: Follow recent orthopedic recommendations
Driving Restrictions: No driving
Bathing Restrictions: Follow baby instructions from orthopedics if previ
Blood Work: CBC with differential, BMP in 1 week from discharge from
Activity Restrictions/Additional Instructions:
Wound Care Instructions
L heel: clean with soap and water or clean with saline, adaptic, 2x2 gauze and silicone foam, change q other day and prn drainage.
offloading heel boot
Instructions: Fever in adults - Discharge instructions
Referrals:
Huber Hale DO [Family Provider] -
Carmen Alva MD [Active] - in two weeks
Additional Discharge Medication Instructions: Can discontinue Augmentin
Prescriptions:
Continued
melatonin 5 MG tablet
5 mg feeding tube HS
bisacodyl [Dulcolax (bisacodyl)] 10 mg Suppository
10 mg [place] DAILY PRN (Reason: if no results for MOM)
therapeutic multivitamin Liquid
15 ml feeding tube DAILY
sennosides [senna] 8.6 mg Tablet
8.6 mg feeding tube DAILY
acetaminophen 160 mg/5 mL Liquid
592 mg feeding tube Q6HPRN PRN (Reason: mild pain)
Rx Instructions:
18.5 ml.
valproic acid (as sodium salt) 250 mg/5 mL Solution
500 mg feeding tube BID
valproic acid (as sodium salt) 250 mg/5 mL Solution
250 mg feeding tube HS
fluoxetine [Prozac] 20 mg Capsule
20 mg feeding tube DAILY
loratadine [Claritin] 10 mg Tablet
10 mg feeding tube DAILY
magnesium hydroxide [Milk of Magnesia] 400 mg/5 mL Suspension
30 ml feeding tube [id number] PRN (Reason: no bm x3 days)
aripiprazole 2 mg Tablet
1 mg feeding tube DAILY
donepezil 10 mg Tablet
10 mg feeding tube HS Qty: 30 0RF
sennosides-docusate sodium 8.6-50 mg Tablet
1 tab PO BIDPRN PRN (Reason: constipation) Qty: 30 0RF
aspirin 81 mg Tablet,Chewable
81 mg feeding tube BID Qty: 60 0RF
Discontinued
amoxicillin-pot clavulanate [Augmentin] 500-125 mg tablet
1 tab PO BID Qty: 10 0RF
Discharge Orders:
Discharge Patient (As Directed); Ordered 06/20/24
Ordered By: Jose A Wolfe
Discharge Date and Time
Print Language: PUERTO RICAN
[2024-06-20 13:22] VITALS: BP 110/68
== END 2024-06-20 14:54 | DRG 177 ==
LOC: 4 WEST ACU 20:09
PROVIDERS: Nurse Practitioner Family; ADMITTING PHYSICIAN Internal Medicine; ATTENDING PHYSICIAN Internal Medicine; EMERGENCY PHYSICIAN Emergency Medicine; FAMILY PHYSICIAN Internal Medicine; OTHER PHYSICIAN Internal Medicine Infectious Disease
DX: J69.0 Pneumonitis due to inhalation of food and vomit (principal); L89.623 Pressure ulcer of left heel, stage 3; F03.918 Unspecified dementia, unspecified severity, with other behavioral disturbance; F20.0 Paranoid schizophrenia; R65.10 Systemic inflammatory response syndrome (SIRS) of non-infectious origin without acute organ dysfunction; J98.11 Atelectasis; F03.93 Unspecified dementia, unspecified severity, with mood disturbance; F03.94 Unspecified dementia, unspecified severity, with anxiety; M48.56XA Collapsed vertebra, not elsewhere classified, lumbar region, initial encounter for fracture; M48.54XA Collapsed vertebra, not elsewhere classified, thoracic region, initial encounter for fracture; E86.0 Dehydration; Z93.1 Gastrostomy status; G47.00 Insomnia, unspecified; F32.A Depression, unspecified; G40.909 Epilepsy, unspecified, not intractable, without status epilepticus; S72.002D Fracture of unspecified part of neck of left femur, subsequent encounter for closed fracture with routine healing; M79.81 Nontraumatic hematoma of soft tissue; E53.8 Deficiency of other specified B group vitamins; Z79.82 Long term (current) use of aspirin; Z11.52 Encounter for screening for COVID-19
CPT/HCPCS: 71045; 71250; 74176; 80048; 80053; 81003; 81015; 83605; 85025; 85027; 87040; 87070; 87086; 87502; 87811; 93005; 96372; 99285

== ENCOUNTER 2024-12-03 08:36 | Emergency (ER) | payer MEDICARE, OTHER, SELFPAY ==
[2024-12-03 08:41] VITALS: BP 159/141
[2024-12-03 09:14] LABS: Hematocrit 42.1 % (37.0-47.0); Hemoglobin 14.1 g/dL (12.0-16.0); Mean Corp Hgb Conc. 33.5 g/dL (33.0-37.0); Mean Corpuscular Volume 98.1 fL (81.0-99.0); Nucleated Red Blood Cells % 0 %; Platelet Count 271 10^3/uL (130-400); Red Cell Dist. Width 13.2 % (11.5-14.5)
[2024-12-03 09:30] LABS: Calcium 9.4 mg/dl (8.4-10.2); Carbon Dioxide 28 mmol/L (22-30); Chloride 104 mmol/L (98-107); Glucose 89 mg/dl (70-99); Sodium 140 mmol/L (135-145); eGFR > 60.00
[2024-12-03 09:40] LABS: Depakane 53.2 ug/ml (50.0-120.0)
--- NOTE | 2024-12-03 10:06 | ED.GENMED ---
History of Present Illness
General
Chief Complaint: Seizure
Source: [facility]
Exam Limitations: non verbal-adult
Time Seen by Provider: 12/03/24 08:44
Nursing documentation reviewed up to this point in time: agreed with
History of Present Illness
History of Present Illness:
Patient is a 69-year-old female with history of epilepsy, aphasia who presents to the emergency department after witnessed seizure at facility earlier this morning. Patient nonverbal and unable to contribute to history. I did call and speak with
patient's nurse who states that she was in giving the patient her morning medications around 7:45 AM when she had a witnessed seizure. She described symptoms consistent with a tonic clonic seizure which lasted approximately 1 minute. There is no
associated head strike or injuries.
Seizure activity did seem to cease without intervention however then patient seemed significantly 'less responsive' for the following 15 minutes. She was then sent to the emergency department for further evaluation.
They deny any recent head strike or trauma. No fever, chills, or viral symptoms. She has not had any recent vomiting.
Apparently her valproic acid level was borderline low when checked at the facility the other day.
Past History
Past History
ED Past Medical History: Other (Dementia, anxiety, depression, ambulatory dysfunction, edema)
ED Past Surgical History: Other
Social History
Tobacco: Non-smoker
Alcohol: Other
Drug: Other
Personal: Other
Living: penitentiary
Employment: Other
Family History
Family History: Other
Review of Systems
Review of Systems
Allergies reviewed?: No
Phy Exam
Physical Exam
Physical Exam:
Vitals: Patient's vital signs are stable. Afebrile
General: Patient is chronically ill-appearing. Elderly and frail. Does not follow commands.
Head: Normocephalic, atraumatic
Eyes: Orbits normal.
Throat: Dry mucous membranes. Protecting airway
Neck: Normal ROM, no cervical spine tenderness, no meningismus
Cardiac: Regular rate and rhythm, no murmurs.
Pulm: Normal respiratory effort. Lungs clear.
Abdomen: Abdomen soft and nontender. G-tube in place.
Extremities: Contracted extremities.
Neuro: Opens eyes to verbal stimuli. Nonverbal. Contracted upper and lower extremities.
Psychiatric: Normal affect.
Course
Orders/Labs/Results
Orders:
Orders
12/03/24 08:57
Electrocardiogram (*1) Urgent
Reason for Study: Fatigue / Weakness
EKG- Treatment ONCE
12/03/24 08:59
CT Head W/o Iv Contrast Urgent
Comment:
Reason For Exam: AMS
12/03/24 09:00
Basic Metabolic Panel Urgent
Complete Blood Count/With Diff Urgent
12/03/24 09:11
Depakane Urgent
12/03/24 10:24
EEG Routine Urgent
Reason for Exam: Seizure, unknown baseline
12/03/24 10:37
Valproate Sodium [Depacon] 500 mg 0.9% Sodium Chloride 50 ml [Nss] 50 ml IV NOW
Abnormal Lab Results
12/03/24
09:00
WBC 11.0 H 10^3/uL
(4.8-10.8)
MCH 32.9 H pg
(27.0-31.0)
Abs Immat Gran (auto) 0.2 H 10^3/uL
(0-0.05)
Absolute Neuts (auto) 7.2 H 10^3/uL
(1.4-6.5)
Immature Gran % 1.5 H %
(0-0.5)
BUN 24 H mg/dl
(7-17)
12/03/24 09:00
12/03/24 10:37
Vital Signs
Initial and Last Documented VS:
Initial Vital Signs
Temp Pulse Resp Pulse Ox
98.3 F 95 16 93
12/03/24 08:38 12/03/24 08:38 12/03/24 08:38 12/03/24 08:38
Last Documented Vital Signs
Temp Pulse Resp BP Pulse Ox
98.3 F 82 30 122/48 96
12/03/24 08:38 12/03/24 15:45 12/03/24 09:01 12/03/24 15:00 12/03/24 16:00
MDM/Problems Addressed
Differential Diagnosis Includes:
Not limited to: Epilepsy, medication noncompliance, viral illness/infection, intracerebral hemorrhage or mass, etc.
MDM/Problems Addressed:
69-year-old female with history of epilepsy presenting after a witnessed seizure at nursing facility. Seizure lasted approximately 1 minute and resolved spontaneously. No evidence of associated head trauma or injuries as this was witnessed. No
recent infectious symptoms.
Vitals and physical exam as above. Patient nonverbal and unable to communicate. Discussed with patient nurse who states she was not at her baseline prior to transport to emergency department. Given her history, dementia, and nonverbal
state�difficult to determine patient's clear baseline. She does not have any evidence of active tonic/clonic seizure at the moment. Patient's nurse likely describing a postictal period. However, given somewhat uncertain baseline and difficult
history taken�will obtain EEG after discussion with neurology to ensure no active seizure. Will check routine labs and check CT head. Possible breakthrough seizure versus acute central process. Other considerations would be electrolyte
abnormality, viral, or infectious process.
Update: Labs without clinically significant abnormalities. Her chemistry panel did hemolyzed multiple times and unable to obtain potassium. Her valproic acid level is at the very lower end of normal. CT head nothing acute.
EEG reviewed by neurologist, Dr. Stone without evidence of active seizure. She has remained in no distress in emergency department. Her state appointed guardian did present here and states that she feels she is at her baseline. This is overall
reassuring. Workup in ED negative. Feel stable for discharge back to facility. I did give patient extra 500 mg of valproic acid under direction of neurologist and will advise repeat lab work in 2 days. Return precautions discussed.
Chronic conditions affecting care:
Epilepsy, aphasia
Acute Exacerbation and/or Progression of Chronic Illness:
N/A
*Radiology
Radiology exam reviewed: radiology read reviewed
*Pulse Oximetry
SaO2: 96
Oxygen Mode of Delivery: Room air
Patient hypoxic: no
*EKG
Interpreted by ED Provider?: Yes
EKG Intrepretation Date: 12/03/24
Interpretation: abnormal
Comparison EKG: changes noted
Heart Rate: 87
Rate: normal
Rhythm: sinus
[place]: normal axis
Interval: normal QT interval
QRS Pattern: low voltage
Ischemia: non-specific ST changes
*Animal Treatment Investigator Interpretation
Rate: Animal Treatment Investigator- N/A
*Critical Care Note
Total Time (30-74mins, 75-104mins- exclusive of procedures): Not Applicable
Patient Management
Discussion with other providers: Weatherization Coordinator (Case discussed with neurology)
ED Attending Note
-
Portions of this chart may have been created with voice recognition software.� Occasional wrong word or��sound alike� substitutions may have occurred due to the inherent limitations of voice recognition software.
Discharge Plan
Departure
Patient Disposition: Home (Routine Discharge)
Date of Disposition: 12/03/24
Time of Disposition: 13:26
Patient with high blood pressure during this ER visit?: Yes
Condition: Good
Discharge Problem:
Seizure
Instructions: Seizures, Adult (DC), BLOOD PRESSURE
Prescriptions:
No Action
melatonin 5 MG tablet
5 mg feeding tube HS
bisacodyl [Dulcolax (bisacodyl)] 10 mg Suppository
10 mg [place] DAILYPRN PRN (Reason: if no results for MOM)
therapeutic multivitamin Liquid
15 ml feeding tube DAILY
acetaminophen 160 mg/5 mL Liquid
592 mg feeding tube Q6HPRN PRN (Reason: mild pain)
Rx Instructions:
18.5 ml.
valproic acid (as sodium salt) 250 mg/5 mL Solution
500 mg feeding tube BID
valproic acid (as sodium salt) 250 mg/5 mL Solution
250 mg feeding tube HS
fluoxetine [Prozac] 20 mg Capsule
20 mg feeding tube DAILY
loratadine [Claritin] 10 mg Tablet
10 mg feeding tube DAILY
magnesium hydroxide [Milk of Magnesia] 400 mg/5 mL Suspension
30 ml feeding tube [id number] PRN (Reason: no bm x3 days)
donepezil 10 mg Tablet
10 mg feeding tube HS Qty: 30 0RF
aspirin 81 mg Tablet,Chewable
81 mg feeding tube BID Qty: 60 0RF
sennosides-docusate sodium [Senna-S] 8.6-50 mg Tablet
1 tab-cap PO BID
Referrals:
Jed Nieves MD [Family Provider, Family Practice] - Follow up in 2-3 days
Activity Restrictions/Additional Instructions:
RETURN TO THE EMERGENCY DEPARTMENT WITH ANY FEVERS, CHANGE IN MENTAL STATUS, SEIZURE ACTIVITY, INTRACTABLE VOMITING OR ABDOMINAL PAIN, WORSENING CURRENT SYMPTOMS, OR ANY OTHER CONCERNS
- As discussed�your EEG performed in the emergency department showed no evidence of seizure activity here. You were given an extra dose of your valproic acid. You should have your valproic acid level rechecked in 2 days to ensure it is within
normal range.
- Please continue to take all medications as prescribed.
- Follow-up with your primary care/neurologist for further evaluation/management to ensure that your symptoms are improving
Monitor your symptoms closely and return to the emergency department with any acute worsening/new symptoms or any other concerns
Interventions
Interventions:
*Risk Screen - Suicide Last Done: 12/03/24 08:50
*General Assessment Last Done: 12/03/24 08:47
*Neglect/Abuse Screening Last Done: 12/03/24 08:46
*ED- Fall Risk Assessment Last Done: 12/03/24 08:47
*ED COVID-19 Vaccine History Last Done: 12/03/24 08:46
*ED Influenza Vaccine History Last Done: 12/03/24 08:46
*Nursing Disposition Last Done: 12/03/24 16:13
ED- Cardiac Assessment Last Done: 12/03/24 08:52
ED- Neurological Assessment Last Done: 12/03/24 08:52
ED- Pulmonary Assessment Last Done: 12/03/24 08:52
Discharge Date and Time
Discharge Date/Time: 12/03/24 16:14
Print Language: TRISTANIAN
[2024-12-03 10:21] LABS: Blood Urea Nitrogen 24 mg/dl (7-17)
[2024-12-03 11:01] VITALS: BP 122/53
[2024-12-03] MEDS: DEPACON 55 MG IV (11:08)
[2024-12-03 12:00] VITALS: BP 115/51
[2024-12-03 13:01] VITALS: BP 115/82
--- NOTE | 2024-12-03 13:23 | EEG.RPT ---
Electroencephalogram Report
Recording
Date of EE12/03/24
Type of EEG: Routine
Length of EEG recordin minutes
Done with Video Recording: No
Patient Status: Inpatient
Recording Conditions: Awake and Drowsy
Hyperventilation Performed: No
Photic Stimulation Performed: Yes
Report
LESS THAN 1 HOUR REPORT
LESS THAN 1 HOUR EEG INTERPRETATION:
Severely abnormal EEG for age mild diffuse bihemispheric slowing
CLINICAL CORRELATION:
This study was suggestive of diffuse cortical dysfunction without focal abnormality. No seizures were recorded. If concerns remain regarding seizures, consideration for prolonged EEG recording may be given.
Clinical correlation is advised.
METHODS:
A 21 channel digitized electroencephalogram (EEG) was performed at the bedside. The 10/20 international system of electrode placement was used with ECG and lateral/vertical eye movements recorded. The [employer] quantitative measurement system was
utilized.
QUALITY OF STUDY:
Fair due to muscle and sweat artifacts
ELECTROENCEPHALOGRAPHER IMPRESSION(S):
Background
Medium amplitude poorly organized anterior-posterior voltage gradient of delta maximal activity
There were no significant asymmetries of background activity noted.
Sleep
Drowsiness present
Photic Stimulation
Failed to activate the record
ECG
Normal sinus rhythm
[2024-12-03 14:00] VITALS: BP 117/54
[2024-12-03 15:00] VITALS: BP 122/48
== END 2024-12-03 16:14 | disposition home or self-care (01) ==
LOC: EMR 08:36
PROVIDERS: Physician Assistant; EMERGENCY PHYSICIAN Student in an Organized Health Care Education/Training Program; FAMILY PHYSICIAN Family Medicine
DX: G40.909 Epilepsy, unspecified, not intractable, without status epilepticus (principal); R47.01 Aphasia; F03.93 Unspecified dementia, unspecified severity, with mood disturbance
CPT/HCPCS: 96365; 99284; 70450; 80048; 80164; 85025; 93005; 95816